=== PATIENT | female | born 1945 | race Caucasian/White ===

== ENCOUNTER 2016-05-06 12:10 | Inpatient (IN) ==
--- NOTE | 2016-05-06 13:24 | History and Physical Report ---
DATE OF ADMISSION: 05/06/2016 IDENTIFICATION: The patient is a 70-year-old female. She has complaints of progressive weakness, bilateral lower extremities. HISTORY: The patient has had multiple episodes of acute lower extremity weakness. She was in [place] and sustained several falls when her legs just \\"gave way.\\" She sustained a T12 fracture which was causing really quite debilitating pain. She was seen in the pain clinic and actually had been really fairly unresponsive to conservative measures and had really very intractable pain. A vertebroplasty was considered. The vertebroplasty was performed yesterday afternoon, and she was discharged doing really fairly well. Over the night she has had increasing pain and progressive weakness of her bilateral lower extremities. She re-presented to the pain clinic this morning, was evaluated by Dr. Alejo Suggs who obtained a CT scan which has shown significant narrowing at the upper aspect of the T12 vertebral body. The patient does complain of really quite severe dysesthetic pain in her bilateral lower extremities beginning perirectally and then wrapping into the anterior thighs. She has had significant weakness to the point where she has been unable to transfer. PAST MEDICAL HISTORY: Significant for hypertension, chronic pain, and diabetes. PAST SURGICAL HISTORY: She has had a recent cholecystectomy. ALLERGIES: Please see medical record. MEDICATIONS: 1. Ativan. 2. Amlodipine. 3. Benazepril. 4. Pantoprazole. 5. Plavix. 6. Tramadol. 7. Gemfibrozil. 8. Glipizide. 9. Percocet. 10. Atenolol. 11. Lasix. 12. Thyroid supplement. 13. Metformin. PHYSICAL EXAMINATION: GENERAL: She is awake and alert. She does seem to be generally in a fair amount of discomfort, especially if moved she has spasms and pain into her lower extremities. She is resting in a wheelchair and her family reports that she has been unable to stand or walk. She is unable to use her lower extremities to support for transfer. HEENT: Head is normocephalic, atraumatic. Eyes are reactive and show no conjunctivitis. ENT within normal limits. NECK: Supple without pain on range of motion. HEART: Regular. LUNGS: Clear. ABDOMEN: Benign. BACK: Her back shows no gross deformity. There is some ecchymosis. NEURO: Her neuro exam shows globally diminished strength. Hip flexors and extensors are roughly 1-2/5. Her quads are 2/5. Tibialis anterior is at least antigravity bilaterally. She has diffusely altered sensation. She does have sharp/dull which is somewhat diminished but she can distinguish. RECTAL: Rectal exam shows no real motor function and clearly decreased rectal tone. DIAGNOSTIC STUDIES: CT scan demonstrates a T12 fracture. There is a modest amount of what appears to be disc material that is posterior causing central canal stenosis. There is some radiopaque material into the canal on the left that would cause some left-sided narrowing but really is not causing significant central narrowing. IMPRESSION: Progressive weakness, bilateral lower extremities. I do think it is secondary to the stenosis at the upper aspect of the T12 vertebra. We will plan to proceed with a decompression of this stenosis. The procedure risks, complications and limitations have been discussed with the patient and her family, and they wish to proceed. GDD:david Job ID: [id number] Doc ID: [id number] Forrest Gomes MD
[2016-05-06] MEDS ORDERED: fentaNYL 250 MCG/5 ML VIAL IV ONE (13:25)
[2016-05-06] MEDS ORDERED: PHENYLEPHRINE 10 MG/ML VIAL IV ONE (13:25)
[2016-05-06] MEDS ORDERED: GLYCOPYRROLATE 0.2 MG/ML VIAL IV ONE (13:25)
[2016-05-06] MEDS ORDERED: MIDAZOLAM 5 MG/5 ML VIAL IV ONE (13:25)
[2016-05-06] MEDS ORDERED: PROPOFOL 200 MG/20 ML VIAL IV ONE (13:25)
[2016-05-06] MEDS ORDERED: LIDOCAINE HCL/PF 100 MG/5 ML SYRINGE IV ONE (13:25)
[2016-05-06] MEDS ORDERED: FAMOTIDINE/PF 20 MG/2 ML VIAL IV ONE ×2 (13:25→13:46)
[2016-05-06] MEDS ORDERED: ceFAZolin 1 GM VIAL ONE (13:27)
[2016-05-06 13:40] LABS: Basophils # (Auto) 0 K/mcL (0.0-0.3); Basophils % (Auto) 0.2 % (0.0-2.0); Eosinophils # (Auto) 0.1 K/mcL (0.0-0.7); Eosinophils % (Auto) 1.3 % (0.0-7.0); Granulocytes % (Auto) 75.5 % (38.0-78.0); Lymphocytes # (Auto) 1.7 K/mcL (1.5-4.8); Lymphocytes % (Auto) 17.1 % (15.5-49.0); Mean Cell Volume 80.8 fL (80.0-100.0); Mean Corpuscular HGB Conc 32.9 g/dL (31.0-36.0); Mean Corpuscular Hemoglobin 26.5 pg (26.0-34.0); Monocytes # (Auto) 0.6 K/mcL (0.1-0.9); Monocytes % (Auto) 5.9 % (1.0-9.0); Platelet Count 283 K/mcL (140-440); Red Cell Distribution Width 14.1 % (11.5-14.5)
[2016-05-06] MEDS ORDERED: methylPREDNISolone SOD SUCC 1,000 MG in 0.9 % SODIUM CHLORIDE 100 ML IV ONE (13:44)
[2016-05-06] MEDS ORDERED: GELATIN SPONGE,ABSORBABLE 1 EACH SPONGE TOPICAL ONE (14:16)
[2016-05-06] MEDS ORDERED: GELATIN SPONGE,ABSORBABLE 1 GM POWDER TOPICAL ONE (14:16)
[2016-05-06] MEDS ORDERED: THROMBIN (BOVINE) 5,000 UNIT VIAL TOPICAL ONE (14:16)
[2016-05-06] MEDS ORDERED: GUM MASTIC/STORAX/MSAL/ALCOHOL 1 DOSE DROPERETTE TOPICAL ONE (14:16)
[2016-05-06 14:34] LABS: Appearance,Urine CLEAR; Bacteria,Urine 0 /hpf (0); Bilirubin,Urine NEG (NEG); Color,Urine YELLOW; Glucose,Urine (UA) >=500 mg/dL (NEG); Leukocyte Esterase,Urine NEG /uL (NEG); Mucus,Urine FEW /hpf (0); Nitrate,Urine NEG (NEG); Protein,Urine NEG (NEG); Specific Gravity,Urine 1.011 (1.000-1.035); Urine Blood NEG mg/dL (<0.03); Urine Hyaline Cast 1 /lpf (0-2); Urine RBC 4 /hpf (0-1); Urine Squamous Epithelial Cell 0 /hpf (0-4); Urine WBC < 1 /hpf (0-4); Urobilinogen,Urine NEG (NEG)
[2016-05-06] MEDS ORDERED: METOPROLOL TARTRATE 5 MG/5 ML VIAL IV PRN (15:43)
[2016-05-06] MEDS ORDERED: NALOXONE HCL 0.4 MG/ML VIAL IV PRN (15:43)
[2016-05-06] MEDS ORDERED: ATROPINE SULFATE 0.4 MG/ML VIAL IV PRN (15:43)
[2016-05-06] MEDS ORDERED: HYDROmorphone 2 MG/ML SYRINGE IV PRN (15:43)
[2016-05-06] MEDS ORDERED: ePHEDrine 50 MG/ML AMPUL IV PRN (15:43)
[2016-05-06] MEDS ORDERED: MEPERIDINE 25 MG/ML SYRINGE IV PRN (15:43)
[2016-05-06] MEDS ORDERED: diphenhydrAMINE 50 MG/ML VIAL IV PRN (15:43)
[2016-05-06] MEDS ORDERED: IPRATROPIUM/ALBUTEROL 3 ML AMPUL.NEB NEB PRN (15:43)
[2016-05-06] MEDS ORDERED: BENZOCAINE/MENTHOL 1 LOZENGE PO PRN ×2 (15:43→17:25)
[2016-05-06] MEDS ORDERED: METHOCARBAMOL 1,000 MG/10 ML VIAL IV PRN (15:43)
[2016-05-06] MEDS ORDERED: ONDANSETRON 4 MG/2 ML VIAL IV PRN (15:43)
[2016-05-06] MEDS ORDERED: FLUMAZENIL 0.1 MG/ML ML IV PRN (15:43)
[2016-05-06] MEDS ORDERED: LACTATED RINGERS 1,000 ML IV SCH (15:45)
[2016-05-06] MEDS ORDERED: BUPIVACAINE 0.25% 50 ML VIAL IJ ONE (16:01)
--- NOTE | 2016-05-06 16:36 | Brief Operative Note ---
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 posterior bony fragment, small amount of hematoma Complications: none Surgeon: Forrest Gomes Cashier Host/Hostess: Alejo Suggs Estimated blood loss (cc): 100 Specimens Removed/Pathology: none sent Condition: stable Disposition: floor
[2016-05-06] MEDS: LABETALOL HCL 20 MG/4 ML SYRINGE IV PRN ×4 (16:40→17:11)
[2016-05-06] MEDS: fentaNYL 100 MCG/2 ML VIAL IV PRN ×3 (16:45→17:13)
[2016-05-06] MEDS ORDERED: ONDANSETRON ODT 4 MG TABLET SL PRN (17:25)
[2016-05-06] MEDS ORDERED: DEXTROSE 50% 50 ML VIAL IV PRN (18:28)
[2016-05-06] MEDS ORDERED: HYDROmorphone 2 MG/ML SYRINGE ONE ×2 (18:47→20:55)
[2016-05-06] MEDS: HYDROmorphone 2 MG/ML SYRINGE IV PRN ×2 (18:52→20:57)
[2016-05-06] MEDS: methylPREDNISolone SOD SUCC 125 MG/2 ML VIAL IV SCH (18:53)
[2016-05-06] MEDS: LACTATED RINGERS 1,000 ML IV SCH ×2 (19:05→23:02)
[2016-05-06] MEDS: ceFAZolin 1 GM VIAL IV SCH (20:34)
[2016-05-06] MEDS ORDERED: FAMOTIDINE/PF 20 MG/2 ML VIAL IV SCH (21:00)
[2016-05-06] MEDS ORDERED: ZOLPIDEM 5 MG TABLET PO PRN (21:00)
[2016-05-06] MEDS ORDERED: INSULIN LISPRO 1 UNIT/0.01 ML UNIT SQ SCH (21:00)
--- NOTE | 2016-05-06 21:15 | Internal Medicine Consult Note ---
Medical - CN: HPI - Data of Consult Consult date: 05/06/16 Requesting Physician: [f_Reg Attending Provider] Primary Care Provider: [fJoseReg Prim Care Provider] Family Provider: [fJoseReg Family Provider] - Consult Narrative Reason for consult: Medial management of chr medical conditions. History of present illness: Ms. Mcfarlane is a 70 year old female admitted to Surgery (neurosurgery for spine decompression and fusion). The patient history obtained from chart review. On my eval the patient was in discomfort from post op pain and did not give any medical history. The patient seems has been suffering from lower extremity weakness, s/p fall and vertebral fracture in T12 region. This was fixed by a vertebroplasty a couple of days ago. The patient after surgery had significant back pain again and was seen in the pain clinic, the patient underwent a CT which revewaled significant narrowing of the upper aspect of the t12 vertebae. The patient also had new neurological symptoms, weakness in yimi lower extremities and was therefore taken to the OR today. S/p surgery. Medicine was consulted for management of chr medical conditions The patient was given 1gm solumedrol and is on IV steroid for inflammation now. the pts PMH reviewed, PSH, Home medication list reviewed CC: [f_Reg Attending Provider] ROS unobtainable: due to mental status Medical - CN: PMH Medical history: From chart DM, HTN, HLD Chr Pain Surgical history: h/o cholcystectomy Recent vertebroplasty Pertinent family history: unable Social history: unable to review Medical - CN: Meds Home Medications Medication Instructions Recorded Confirmed Type Atenolol [Tenormin] 100 mg PO BID 05/06/16 05/06/16 History Benazepril HCl [Lotensin] 40 mg PO BID 05/06/16 05/06/16 History Canagliflozin [Invokana] 200 mg PO DAILY 05/06/16 05/06/16 History Clopidogrel Bisulfate [Plavix] 75 mg PO DAILY 05/06/16 05/06/16 History FLUoxetine HCL [Fluoxetine HCl] 40 mg PO DAILY 05/06/16 05/06/16 History Furosemide [Lasix] 60 mg PO DAILY 05/06/16 05/06/16 History Gemfibrozil [Lopid] 600 mg PO BIDAC 05/06/16 05/06/16 History LORazepam [Ativan] 1 mg PO TIDP PRN 05/06/16 05/06/16 History Levothyroxine [Synthroid] 150 mcg PO ACB 05/06/16 05/06/16 History Pantoprazole [Protonix] 40 mg PO QAMAC 05/06/16 05/06/16 History amLODIPine [Norvasc] 10 mg PO DAILY 05/06/16 05/06/16 History glipiZIDE [Glucotrol] 10 mg PO BID 05/06/16 05/06/16 History metFORMIN HCL [Glucophage] 1,000 mg PO BIDCC 05/06/16 05/06/16 History oxyCODONE HCL/ACETAMINOPHEN 1 tablet PO 5XD 05/06/16 05/06/16 History [Percocet 10-325 mg Tablet] tiZANidine [Zanaflex] 4 mg PO QIDP 05/06/16 05/06/16 History traMADol [Ultram] 100 mg PO QIDP 05/06/16 05/06/16 History traZODone HCL [Trazodone HCl] 50 mg PO HS 05/06/16 05/06/16 History Allergies Allergy/AdvReac Type Severity Reaction Status Date / Time codeine Allergy Severe Hives Verified 05/06/16 17:39 aspirin Allergy Unknown Unknown Verified 05/06/16 13:49 Medical - CN: Exam - Constitutional Vitals: Temp Pulse Resp BP Pulse Ox 98.4 F 83 20 173/79 98 05/06/16 19:15 05/06/16 19:15 05/06/16 19:15 05/06/16 19:15 05/06/16 19:15 General appearance: mild distress - Head Head exam: Present: atraumatic, normal inspection - Eye Eye exam: Absent: periorbital swelling, periorbital tenderness - ENT ENT exam: Present: normal external ear exam - Neck Neck exam: Present: normal inspection - Respiratory Respiratory exam: Absent: accessory muscle use, respiratory distress - Cardiovascular Cardiovascular exam: Present: normal rate and rhythm - Extremities Exam Additional comments: left ankle bruise on lateral aspect. - Additional findings Additional findings: Complete exam not peformed due to patient being in pain. will reassess in AM Medical - CN: Result - Labs CBC & Chem 7: 05/06/16 12:46 Labs: Short CBC 02/16/17 Range/Units 12:46 WBC 9.7 (4.5-11.0) K/mcL Hgb 11.1 L (12.0-15.0) g/dL Hct 33.9 L (36.0-48.0) % Plt Count 283 (140-440) K/mcL Urine 05/06/16 Range/Units 13:09 Urine Color Yellow Urine Appearance Clear Urine pH 5.0 (5.0-9.0) Ur Specific [place] 1.011 (1.000-1.035) Urine Protein Neg (NEG) mg/dL Urine Glucose (UA) >=500 A (NEG) mg/dL Medical - CN: A/P (1) Paraplegia Status: Acute (2) Diabetes mellitus Status: Acute (3) Hypertension Status: Acute (4) Hyperlipidemia Status: Acute (5) Anxiety Status: Acute - Narrative A/P Narrative: The patient has been admitted to the hospital with paraparesis /p spinal cord decompression. On high doses of IV steroids. DM- Glucose so far Ok, goal glucose < 180, hold Home oral medications for now, on Insulin sliding scale, monitor ACHS, and increase dose of insulin as needed. will resume home meds once oral intake is better. HTN bp high, pain seems to be confounding factor, Resume home bp meds, monitor for now HLD resume home meds DVT- Hold hep sq for now, given recent surgery, will wait atleast 48 hrs before dvt prophylaxis as per neurosurgery. Will consider scd in the interim. Diet - carb consistent
[2016-05-06] MEDS: METHOCARBAMOL 750 MG TABLET PO PRN (22:31)
[2016-05-06] MEDS: oxyCODONE HCL 5 MG TABLET PO PRN (22:31)
[2016-05-06] MEDS: LISINOPRIL 20 MG TABLET PO SCH (22:31)
[2016-05-07] MEDS ORDERED: HYDROmorphone 2 MG/ML SYRINGE ONE ×4 (00:02→06:21)
[2016-05-07] MEDS: LORazepam 1 MG TABLET PO PRN ×4 (00:11→23:05)
[2016-05-07] MEDS: methylPREDNISolone SOD SUCC 125 MG/2 ML VIAL IV SCH ×4 (00:16→19:48)
[2016-05-07] MEDS: oxyCODONE HCL 5 MG TABLET PO PRN ×4 (01:53→23:06)
[2016-05-07] MEDS: HYDROmorphone 2 MG/ML SYRINGE IV PRN ×6 (02:31→16:03)
[2016-05-07] MEDS: LACTATED RINGERS 1,000 ML IV SCH ×5 (04:54→23:27)
[2016-05-07 05:20] LABS: Basophils # (Auto) 0 K/mcL (0.0-0.3); Basophils % (Auto) 0.1 % (0.0-2.0); Eosinophils # (Auto) 0 K/mcL (0.0-0.7); Eosinophils % (Auto) 0 % (0.0-7.0); Granulocytes % (Auto) 91.3 % (38.0-78.0); Lymphocytes # (Auto) 0.7 K/mcL (1.5-4.8); Lymphocytes % (Auto) 6.2 % (15.5-49.0); Mean Cell Volume 81.1 fL (80.0-100.0); Mean Corpuscular HGB Conc 32.4 g/dL (31.0-36.0); Mean Corpuscular Hemoglobin 26.3 pg (26.0-34.0); Monocytes # (Auto) 0.3 K/mcL (0.1-0.9); Monocytes % (Auto) 2.4 % (1.0-9.0); Platelet Count 272 K/mcL (140-440); RBC 4.09 M/mcL (4.00-5.20); Red Cell Distribution Width 14.1 % (11.5-14.5)
[2016-05-07] MEDS: ceFAZolin 1 GM VIAL IV SCH (06:00)
[2016-05-07] MEDS: METHOCARBAMOL 750 MG TABLET PO PRN (06:00)
[2016-05-07 06:17] LABS: ALT/SGPT 14 U/l (0-40); Albumin 4.2 gm/dL (3.2-5.2); Albumin/Globulin Ratio 1.1 (1.0-2.3); Alkaline Phosphatase 166 U/L (39-117); Bilirubin,Direct < 0.2 mg/dL (0.0-0.3); Blood Urea Nitrogen 33 mg/dl (8-23); Gamma Glutamyl Transpeptidase 49 U/L (5-36); Magnesium 2.1 mg/dL (1.6-2.5); Phosphorous 4.5 mg/dL (2.7-4.5); Uric Acid 9.5 mg/dL (2.5-8.0)
[2016-05-07] MEDS ORDERED: glipiZIDE 5 MG TABLET PO SCH (07:30)
[2016-05-07] MEDS: INSULIN LISPRO 1 UNIT/0.01 ML UNIT SQ SCH ×4 (08:00→20:56)
[2016-05-07] MEDS: PANTOPRAZOLE 40 MG VIAL IV SCH (08:00)
[2016-05-07] MEDS ORDERED: METFORMIN HCL 1000 MG PO SCH (08:00)
[2016-05-07] MEDS: GEMFIBROZIL 600 MG TABLET PO SCH ×2 (08:01→17:20)
[2016-05-07] MEDS: LEVOTHYROXINE 150 MCG TABLET PO SCH (08:01)
--- NOTE | 2016-05-07 08:33 | XRay Report ---
HISTORY: Reason for Exam:fever FINDINGS: There are horizontally oriented thin linear opacities in both lung bases which may be scar or discoid atelectasis. They have remained stable since the time of the thoracic spine CT done on 05/06/16. There is no evidence of pneumonia, pleural effusion or adenopathy. The heart size is normal. IMPRESSION: Linear scar or discoid atelectasis in both lung bases and no evidence of pneumonia Interpreted and Authenticated by: Britton Bojorquez 05/07/16
[2016-05-07] MEDS ORDERED: tiZANidine 4 MG TABLET PO SCH (09:00)
[2016-05-07] MEDS ORDERED: CANAGLIFLOZIN 200 MG PO SCH (09:00)
[2016-05-07] MEDS ORDERED: fentaNYL 50 MCG PATCH TOPICAL SCH (09:00)
[2016-05-07] MEDS: FLUoxetine HCL 20 MG CAPSULE PO SCH (09:37)
[2016-05-07] MEDS: LISINOPRIL 20 MG TABLET PO SCH ×2 (09:37→23:08)
[2016-05-07] MEDS: GABAPENTIN 100 MG CAPSULE PO SCH ×3 (09:37→23:07)
[2016-05-07] MEDS: amLODIPine 10 MG TABLET PO SCH (09:37)
[2016-05-07] MEDS: FUROSEMIDE 20 MG TABLET PO SCH (09:37)
[2016-05-07] MEDS: ATENOLOL 50 MG TABLET PO SCH ×2 (09:37→23:07)
[2016-05-07] MEDS: tiZANidine 4 MG TABLET PO SCH ×2 (09:38→16:03)
--- NOTE | 2016-05-07 09:45 | XRay Report ---
HISTORY: Reason for Exam:swelling, FINDINGS: There is moderate soft tissue swelling along the lateral side of the ankle and milder swelling along the medial side. There is no fracture or dislocation. Small spurs are present along the inferior margins of both medial and lateral malleolus. The ankle joint space is normal in width and alignment. IMPRESSION: Mild arthritis and soft tissue swelling Interpreted and Authenticated by: Britton Bojorquez 05/07/16
[2016-05-07] MEDS ORDERED: cloNIDine HCL 0.1 MG TABLET PO PRN (10:06)
--- NOTE | 2016-05-07 10:12 | Internal Med Progress Note ---
Medical - PN: Subj Patient information: Note initiated : 05/07/16 at 10:09 am Service Date, if different from initiated Date: [] Patient: Paula Mcfarlane 70 y/o F admitted on 05/06/16 for lumbar decompression. Chief Complaint: [] Interval history: Patient seen examined, still in pain did not talk much about other complaints Overnight had spiked fevers, BC ordered CXR shows at atelectasis - this is likely the source of fever, needs incentive spirometery which is ordered. patient glucose high, she is on moderate dose of sliding scale isulin, and lantus 10 units have been added to her regime. Pain control is as per Neurosurgery, patient to get IV tylenol and fentanyl patch, with resumption of her home meds. addition of neurontin 100mg tid as per nursing staff. BP high, not sure if related to stress, she was started back on her home medications today. Will monitor BP, use clonidine prn basis to help with bp management. This is multifactorial at this time. Pertinent ROS: unable to obtain. - Constitutional Vitals: Vital Signs Temp Pulse Resp BP Pulse Ox 99.9 F H 89 24 210/102 95 05/07/16 08:00 05/07/16 04:00 05/07/16 08:00 05/07/16 08:00 05/07/16 08:00 Period Temp Pulse Resp BP Sys/[place] Pulse Ox Last 24 Hr 97.6 F-101.3 F 60-90 15-26 95-210/52-102 90-100 Intake and Output 05/06/16 05/07/16 05/07/16 21:59 05:59 13:59 Intake Total 1200 / 1200 795 / 795 Output Total 1875 / 1875 1330 / 1330 Balance -675 / -675 -535 / -535 Weight 145 lb Intake & Output: Intake & Output 05/06/16 05/07/16 05/07/16 21:59 05:59 13:59 Intake Total 1200 / 1200 795 / 795 Output Total 1875 / 1875 1330 / 1330 Balance -675 / -675 -535 / -535 Weight 145 lb Intake: IV 1200 / 1200 395 / 395 Lactated Ringers 1,000 ml 395 / 395 @ 100 mls/hr IV .Q10H [facility] Rx#:[id number] Oral 400 / 400 Output: Drainage Posterior Back RAVEN Drain Urine Catheter Amount 1825 / 1825 1300 / 1300 Estimated Blood Loss 50 / 50 Other: Percent of Meal Consumed Refused Exam: Constitutional; Afebrile, cooperative, mild to moderate distress Eyes- No icterus, No periorbital swelling Ears- Ext ear normal, hearing normal to conversation. Neck- Midline trachea, supple Respiratory system: Air Entry equal on both sides, No crackles or wheezing, no rhonchi. CVS- Rate rhythm regular, S1,S2 heard, no gallop, no rub. Abdomen- Soft nontender abdomen, no organomegaly, no tenderness, no guarding or rigidity, [employer] SPECIALIST- AOO, able to move lower extremities, 1-2 / 5 on both limbs Medical - PN: Obj Da - Labs CBC & Chem 7: 05/07/16 04:15 05/07/16 04:15 Labs: Abnormal Lab Results 05/07/16 05/07/16 05/06/16 04:15 04:15 13:09 WBC 11.8 H Hgb 10.8 L Hct 33.2 L POC Hct Gran % 91.3 H Lymph % (Auto) 6.2 L Gran # 10.7 H Lymph # 0.7 L Chloride 93 L Anion Gap 21.0 H POC BUN BUN 33 H Glucose 293 H POC Glucose Uric Acid 9.5 H GGT 49 H AST 39 H Alkaline Phosphatase 166 H Triglycerides 230 H Urine Glucose (UA) >=500 A Urine RBC 4 H 05/06/16 05/06/16 12:46 12:46 WBC Hgb 11.1 L Hct 33.9 L POC Hct 35.0 L Gran % Lymph % (Auto) Gran # Lymph # Chloride Anion Gap POC BUN 35 H BUN Glucose POC Glucose 201 H Uric Acid GGT AST Alkaline Phosphatase Triglycerides Urine Glucose (UA) Urine RBC Meds: Medications Amlodipine Besylate (Norvasc) 10 mg PO DAILY [facility] Last Admin: 05/07/16 09:37 Dose: 10 mg Atenolol (Tenormin) 100 mg PO BID [facility] Last Admin: 05/07/16 09:37 Dose: 100 mg Clonidine HCl (Catapres) 0.1 mg PO TID PRN PRN Reason: HIGH BP Dextrose (Dextrose 50%) 0 ml IV UD PRN PRN Reason: Hypoglycemia Diagnostic Test (Pha) (Accu-Chek) 1 each FS ACHS [facility] Last Admin: 05/07/16 07:41 Dose: 1 each Fentanyl (Duragesic) 50 mcg TOPICAL Q72H [facility] Last Admin: 05/07/16 09:36 Dose: 50 mcg Fluoxetine HCl (Prozac) 40 mg PO DAILY [facility] Last Admin: 05/07/16 09:37 Dose: 40 mg Furosemide (Lasix) 60 mg PO DAILY [facility] Last Admin: 05/07/16 09:37 Dose: 60 mg Gabapentin (Neurontin) 100 mg PO TID [facility] Last Admin: 05/07/16 09:37 Dose: 100 mg Gemfibrozil (Lopid) 600 mg PO BIDAC [facility] Last Admin: 05/07/16 08:01 Dose: 600 mg Hydromorphone HCl (Dilaudid) 0 mg IV Q2HP PRN PRN Reason: Pain Last Admin: 05/07/16 09:47 Dose: 2 mg Lactated Ringer's (Lactated Ringers) 1,000 mls @ 100 mls/hr IV .Q10H [facility] Last Admin: 05/07/16 04:54 Dose: Not Given Acetaminophen (Ofirmev) 1,000 mg in 100 mls @ 200 mls/hr IV Q6HP PRN PRN Reason: PAIN/FEVER > 101 Insulin Glargine (Lantus) 10 unit SQ DAILY [facility] Insulin Human Lispro (Humalog) 0 unit SQ ACHS [facility] PRN Reason: Protocol Last Admin: 05/07/16 08:00 Dose: 10 unit Levothyroxine Sodium (Synthroid) 150 mcg PO ACB [facility] Last Admin: 05/07/16 08:01 Dose: 150 mcg Lisinopril (Zestril) 40 mg PO BID [facility] Last Admin: 05/07/16 09:37 Dose: 40 mg Lorazepam (Ativan) 1 mg PO TIDP PRN PRN Reason: Anxiety Last Admin: 05/07/16 08:01 Dose: 1 mg Methocarbamol (Robaxin) 750 mg PO Q6HP PRN PRN Reason: Muscle Spasm Last Admin: 05/07/16 06:00 Dose: 750 mg Methylprednisolone Sodium Succinate (Solu-Medrol) 125 mg IV Q6 [facility] Last Admin: 05/07/16 06:00 Dose: 125 mg Ondansetron HCl (Zofran Odt) 4 mg SL Q4HP PRN PRN Reason: Nausea And Vomiting Oxycodone HCl (Roxicodone) 0 mg PO Q4HP PRN PRN Reason: Pain Last Admin: 05/07/16 05:59 Dose: 10 mg Pantoprazole Sodium (Protonix) 40 mg IV QAMAC [facility] Last Admin: 05/07/16 08:00 Dose: 40 mg Throat Lozenges (Cepacol) 1 lozenge PO PRN PRN PRN Reason: Sore Throat Tizanidine HCl (Zanaflex) 4 mg PO Q6H [facility] Last Admin: 05/07/16 09:38 Dose: 4 mg Zolpidem Tartrate (Ambien) 5 mg PO HSP PRN PRN Reason: Insomnia Medical - PN: A/P - Time Spent With Patient Total time spent is greater than 50% in coordination of care (as documented) at patient's floor/unit and/or counseling patient: (1) Paraplegia Status: Acute Current Visit: Yes (2) Diabetes mellitus Status: Acute Current Visit: Yes (3) Hypertension Status: Acute Current Visit: Yes (4) Hyperlipidemia Status: Acute Current Visit: Yes (5) Anxiety Status: Acute Current Visit: Yes - Narrative A/P Narrative: DM- Lantus and sliding scale, titrate to keep glucose < 180 as far as possible HTN - reactive vs HTN, resumed home meds, prn clonidone for now. Continue rest of home medicatins pain management as per neurosurgery. Anlke swelling bruising noted, X ray done this AM is negative.
[2016-05-07] MEDS ORDERED: INSULIN GLARGINE, HUMAN 1 UNIT/0.01 ML SQ SCH (10:15)
[2016-05-07] MEDS: ACETAMINOPHEN 1,000 MG/100 ML BOTTLE IV PRN ×2 (10:32→17:29)
[2016-05-07] MEDS ORDERED: diphenhydrAMINE 50 MG/ML VIAL IV PRN (14:55)
--- NOTE | 2016-05-07 16:13 | Orthopedic Progress Note ---
Subjective Patient information: Note initiated : 05/07/16 at 4:09 pm Service Date, if different from initiated Date: [] Patient: Paula Mcfarlane 70 y/o F admitted on 05/06/16 for Lumbar Decompression. Chief Complaint: patient seen earlier this am and had severe back pain and difficulty with mentation. MRI ordered of brain and t spine. difficulty with patient being able to lay still but mentation has improved with pain control. continues with pain challenges but seems to do ok when coaxed to relax. Neuro consistent with preop. Principal diagnosis: cauda equina syndrome Interval history: unchanged since this am except responds more clearly. Objective Vital signs: Vital Signs Temp Pulse Resp BP BP Pulse Ox 05/07/16 12:00 98.2 F 86 18 147/89 93 05/07/16 08:00 99.9 F H 24 210/102 95 05/07/16 04:00 99.1 F 89 20 177/80 90 05/07/16 02:10 99.1 F 90 26 H 97 05/07/16 00:15 99.7 F H 05/06/16 23:04 101.3 F H 88 24 168/88 99 05/06/16 19:15 98.4 F 83 20 173/79 98 05/06/16 18:45 85 20 173/91 97 05/06/16 18:15 88 18 172/76 99 05/06/16 18:00 99.3 F 84 18 166/81 05/06/16 17:45 81 16 169/82 100 05/06/16 17:30 98.9 F 80 16 171/81 100 05/06/16 17:25 98 F 90 20 173/91 97 05/06/16 17:14 97.6 F 78 17 163/69 100 05/06/16 17:00 76 16 170/67 100 05/06/16 16:45 77 15 176/71 100 05/06/16 16:35 76 19 176/71 99 05/06/16 16:29 60 16 143/61 100 05/06/16 16:24 60 16 106/52 100 05/06/16 16:21 98.6 F 72 16 100/52 98 05/06/16 16:15 60 16 135/81 98 Intake and Output 05/07/16 05/07/16 05/07/16 05:59 13:59 21:59 Intake Total 795 / 795 1520 / 1520 Output Total 1330 / 1330 850 / 850 Balance -535 / -535 670 / 670 Intake: IV 395 / 395 1000 / 1000 Lactated Ringers 1,000 ml 395 / 395 1000 / 1000 @ 100 mls/hr IV .Q10H [facility] Rx#:[id number] Oral 400 / 400 520 / 520 Output: Drainage 30 / 30 Posterior Back RAVEN Drain 30 / 30 Urine Catheter Amount 1300 / 1300 850 / 850 Other: Meal Lunch Percent of Meal Consumed Refused Feeding Ability Independent Weight 145 lb Patient Weight 05/08/16 05:59 Weight 145 lb Intake & Output: Intake & Output 05/07/16 05/07/16 05/07/16 05:59 13:59 21:59 Intake Total 795 / 795 1520 / 1520 Output Total 1330 / 1330 850 / 850 Balance -535 / -535 670 / 670 Weight 145 lb Intake: IV 395 / 395 1000 / 1000 Lactated Ringers 1,000 ml 395 / 395 1000 / 1000 @ 100 mls/hr IV .Q10H [facility] Rx#:[id number] Oral 400 / 400 520 / 520 Output: Drainage 30 / 30 Posterior Back RAVEN Drain 30 / 30 Urine Catheter Amount 1300 / 1300 850 / 850 Other: Meal Lunch Percent of Meal Consumed Refused Feeding Ability Independent Additional Comments: neuro exam really unchanged from preop Extremities exam IM: Yes Foot pink and warm - Labs CBC & BMP: 05/07/16 04:15 05/07/16 04:15 Labs: Orthopedic Labs 05/06/16 12:46 POC PT 13.7 POC INR 1.2 05/07/16 05/06/16 04:15 12:46 Hgb 10.8 L 11.1 L Hct 33.2 L 33.9 L Assessment and Plan (1) Paraplegia will taper steroid tomorrow. continue pain management. will need inpatient rehab Status: Acute
[2016-05-08] MEDS: methylPREDNISolone SOD SUCC 125 MG/2 ML VIAL IV SCH ×2 (02:41→07:36)
[2016-05-08] MEDS: tiZANidine 4 MG TABLET PO SCH ×5 (02:41→20:29)
[2016-05-08] MEDS ORDERED: MAGNESIUM HYDROXIDE 30 ML ORAL.SUSP PO PRN (03:13)
[2016-05-08] MEDS ORDERED: FLEETS ADULT ENEMA PR PRN (03:13)
[2016-05-08] MEDS ORDERED: BISACODYL 10 MG SUPP.RECT PR PRN (03:13)
[2016-05-08] MEDS: LEVOTHYROXINE 150 MCG TABLET PO SCH (07:30)
[2016-05-08] MEDS: GEMFIBROZIL 600 MG TABLET PO SCH ×2 (07:30→17:52)
[2016-05-08] MEDS: PANTOPRAZOLE 40 MG VIAL IV SCH (07:30)
[2016-05-08] MEDS: HYDROmorphone 2 MG/ML SYRINGE IV PRN (07:44)
[2016-05-08] MEDS ORDERED: INSULIN GLARGINE, HUMAN 1 UNIT/0.01 ML SQ SCH (09:00)
--- NOTE | 2016-05-08 09:04 | Orthopedic Progress Note ---
Subjective Patient information: Note initiated : 05/08/16 at 9:02 am Service Date, if different from initiated Date: [] Patient: Paula Mcfarlane 70 y/o F admitted on 05/06/16 for Lumbar Decompression. Chief Complaint: [] Principal diagnosis: cauda equina syndrome Interval history: No acute changes, remains modestly confused Objective Vital signs: Vital Signs Temp Pulse Pulse Resp BP BP Pulse Ox 05/08/16 08:07 93 05/08/16 04:00 99.5 F 90 20 135/86 90 05/07/16 23:27 97 H 24 92 05/07/16 19:35 98.6 F 88 24 142/90 95 05/07/16 19:00 95 05/07/16 18:34 98.9 F 70 24 129/81 95 05/07/16 18:10 72 24 93 05/07/16 18:02 73 21 85 L 05/07/16 17:31 98.2 F 24 156/99 91 05/07/16 12:00 98.2 F 86 18 147/89 93 Intake and Output 05/07/16 05/08/16 05/08/16 21:59 05:59 13:59 Intake Total 1862 / 1862 350 / 350 Output Total 1700 / 1700 1590 / 1590 Balance 162 / 162 -1240 / -1240 Intake: IV 922 / 922 Lactated Ringers 1,000 ml 822 / 822 @ 100 mls/hr IV .Q10H [facility] Rx#:[id number] Oral 940 / 940 350 / 350 Output: Drainage 15 / 15 Posterior Back RAVEN Drain 15 / 15 Urine Catheter Amount 1700 / 1700 1575 / 1575 Other: Weight 140 lb 8 oz Intake & Output: Intake & Output 05/07/16 05/08/16 05/08/16 21:59 05:59 13:59 Intake Total 1862 / 1862 350 / 350 Output Total 1700 / 1700 1590 / 1590 Balance 162 / 162 -1240 / -1240 Weight 140 lb 8 oz Intake: IV 922 / 922 Lactated Ringers 1,000 ml 822 / 822 @ 100 mls/hr IV .Q10H [facility] Rx#:[id number] Oral 940 / 940 350 / 350 Output: Drainage 15 / 15 Posterior Back RAVEN Drain 15 / 15 Urine Catheter Amount 1700 / 1700 1575 / 1575 Dressing: Yes clean, Yes dry Additional Comments: neuro +/- maybe some increased spontaneous movement. remains very weak. - Labs CBC & BMP: 05/08/16 04:30 05/07/16 04:15 Labs: Orthopedic Labs 05/06/16 12:46 POC PT 13.7 POC INR 1.2 05/08/16 05/08/16 05/07/16 08:04 04:30 04:15 Hgb Pending 10.9 L 10.8 L Hct Pending 33.3 L 33.2 L 05/06/16 12:46 Hgb 11.1 L Hct 33.9 L Assessment and Plan (1) Paraplegia will taper steroid tomorrow. continue pain management. will need inpatient rehab will order tlso and begin to mobilize Status: Acute
[2016-05-08 09:06] LABS: Mean Cell Volume 80.9 fL (80.0-100.0); Mean Corpuscular HGB Conc 32.8 g/dL (31.0-36.0); Mean Corpuscular Hemoglobin 26.6 pg (26.0-34.0); Platelet Count 330 K/mcL (140-440); RBC 4.25 M/mcL (4.00-5.20); Red Cell Distribution Width 14.4 % (11.5-14.5)
[2016-05-08 09:15] LABS: Amylase 140 U/L (28-100); Lipase 251 U/L (7-60)
[2016-05-08 09:21] LABS: ALT/SGPT 20 U/l (0-40); Albumin 3.6 gm/dL (3.2-5.2); Albumin/Globulin Ratio 0.9 (1.0-2.3); Alkaline Phosphatase 151 U/L (39-117); Bilirubin,Direct < 0.2 mg/dL (0.0-0.3); Blood Urea Nitrogen 37 mg/dl (8-23); Gamma Glutamyl Transpeptidase 53 U/L (5-36); Magnesium 1.9 mg/dL (1.6-2.5); Phosphorous 3.7 mg/dL (2.7-4.5); Uric Acid 10.9 mg/dL (2.5-8.0)
[2016-05-08 09:28] LABS: Band Neutrophils % 2 % (0-10); Lymphocytes % 9 % (15-49); Monocytes % (Manual) 1 % (1-9); Platelet Estimate NORMAL (NORMAL); RBC Morphology NORMAL (NORMAL); Segmented Neutrophils % 88 % (38-78)
[2016-05-08] MEDS ORDERED: IOPAMIDOL 100 ML BOTTLE IJ ONE (10:11)
[2016-05-08] MEDS ORDERED: VANCOMYCIN PER PHARMACY IV SCH (10:39)
[2016-05-08] MEDS: FUROSEMIDE 20 MG TABLET PO SCH (11:29)
[2016-05-08] MEDS: GABAPENTIN 100 MG CAPSULE PO SCH ×3 (11:29→20:29)
[2016-05-08] MEDS: ATENOLOL 50 MG TABLET PO SCH ×2 (11:30→20:30)
[2016-05-08] MEDS: amLODIPine 10 MG TABLET PO SCH (11:30)
[2016-05-08] MEDS: LISINOPRIL 20 MG TABLET PO SCH ×2 (11:30→20:30)
[2016-05-08] MEDS: FLUoxetine HCL 20 MG CAPSULE PO SCH (11:30)
[2016-05-08] MEDS: DOCUSATE SODIUM 100 MG CAPSULE PO SCH ×2 (11:30→20:29)
[2016-05-08] MEDS: oxyCODONE HCL 5 MG TABLET PO PRN (11:31)
[2016-05-08] MEDS: PIPERACILLIN SODIUM/TAZOBACTAM 3.375 GM in DEXTROSE 5% IN WATER 50 ML IV SCH ×2 (11:32→18:54)
[2016-05-08] MEDS: LACTATED RINGERS 1,000 ML IV SCH (11:36)
[2016-05-08] MEDS: INSULIN LISPRO 1 UNIT/0.01 ML UNIT SQ SCH ×4 (11:52→20:46)
--- NOTE | 2016-05-08 11:58 | Internal Med Progress Note ---
Medical - PN: Subj Patient information: Note initiated : 05/08/16 at 11:49 am Service Date, if different from initiated Date: [] Patient: Paula Mcfarlane 70 y/o F admitted on 05/06/16 for Lumbar Decompression. Chief Complaint: [] Interval history: The patient seen examined, overnight events not ed Pt was in significant discomfort overnight, and delerious, removed her stahl. Also was incohenernt but the nrusing staff did note pain in the abdomen. On my eval this AM she did not talk much, but later in the day in presence of family her mental condition was much better. She noted pain in the back was her major concern. did not endorse any abdominal pain. Her abdominal discomfort was better after the insertion of the stahl catheter. The pt underwent a CT abdomen and pelvis and a CT head this AM- official transcripts pending, but I discussed the findings with the radiologist. Possible bibasilar pna/ enlarged urinary bladder. CT head neg for acute issues. Her amylase and lipase was mildly elevated, lactate high, and elevated anion gap. ABG shows resp alkalosis and metabolic acidosis. Case discussed with family and patient. Pertinent ROS: denies headache, but was confused intermittently no chest pain or shortness of breath abdominal pain was present but not there any more no diarrhea urinary retention noted after stahl removed, reinstered. - Constitutional Vitals: Vital Signs Temp Pulse Resp BP Pulse Ox 98.3 F 90 24 143/91 93 05/08/16 08:00 05/08/16 04:00 05/08/16 08:00 05/08/16 08:00 05/08/16 08:07 Period Temp Pulse Resp BP Sys/Roldan Pulse Ox Last 24 Hr 98.2 F-99.5 F 70-97 18-24 129-156/81-99 85-95 Intake and Output 05/07/16 05/08/16 05/08/16 21:59 05:59 13:59 Intake Total 1861 / 1861 350 / 350 1400 / 1400 Output Total 1700 / 1700 1590 / 1590 500 / 500 Balance 162 / 162 -1240 / -1240 900 / 900 Weight 140 lb 8 oz Intake & Output: Intake & Output 05/07/16 05/08/16 05/08/16 21:59 05:59 13:59 Intake Total 1862 / 1862 350 / 350 1400 / 1400 Output Total 1700 / 1700 1590 / 1590 500 / 500 Balance 162 / 162 -1240 / -1240 900 / 900 Weight 140 lb 8 oz Intake: IV 922 / 922 1000 / 1000 Lactated Ringers 1,000 ml 822 / 822 1000 / 1000 @ 100 mls/hr IV .Q10H [facility] Rx#:[id number] Oral 940 / 940 350 / 350 400 / 400 Output: Drainage Posterior Back RAVEN Drain Urine Catheter Amount 1700 / 1700 1575 / 1575 500 / 500 Other: Meal Breakfast Percent of Meal Consumed Refused Exam: Constitutional; Afebrile, cooperative, alert, not in distress. Eyes- No icterus, Pupils equal, reactive, No periorbital swelling Ears- Ext ear normal, hearing normal to conversation. Neck- Midline trachea, supple Respiratory system: Air Entry equal on both sides, No crackles or wheezing, no rhonchi. CVS- Rate rhythm regular, S1,S2 heard, no gallop, no rub. 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 Medical - PN: Obj Da - Labs CBC & Chem 7: 05/08/16 08:04 05/08/16 08:04 Labs: Abnormal Lab Results 05/08/16 05/08/16 05/08/16 10:12 10:12 08:04 WBC Hgb Hct POC Hct Gran % Lymph % (Auto) Gran # Lymph # Seg Neutrophils % Lymphocytes % VBG Lactic Acid 2.4 H Chloride Carbon Dioxide Anion Gap POC BUN BUN Glucose POC Glucose Uric Acid GGT AST Alkaline Phosphatase Lactate Dehydrogenase Globulin Albumin/Globulin Ratio Triglycerides Amylase 140 H Lipase 251 H Beta-Hydroxybutyrate 3.28 H Urine Glucose (UA) Urine RBC 05/08/16 05/08/16 05/08/16 08:04 08:04 04:30 WBC 15.7 H Hgb 11.3 L 10.9 L Hct 34.4 L 33.3 L POC Hct Gran % Lymph % (Auto) Gran # Lymph # Seg Neutrophils % 88 H Lymphocytes % 9 L VBG Lactic Acid Chloride Carbon Dioxide 19 L Anion Gap 25.0 H POC BUN BUN 37 H Glucose 253 H POC Glucose Uric Acid 10.9 H GGT 53 H AST 86 H Alkaline Phosphatase 151 H Lactate Dehydrogenase 337 H Globulin 3.9 H Albumin/Globulin Ratio 0.9 L Triglycerides 248 H Amylase Lipase Beta-Hydroxybutyrate Urine Glucose (UA) Urine RBC 05/07/16 05/07/16 05/06/16 04:15 04:15 13:09 WBC 11.8 H Hgb 10.8 L Hct 33.2 L POC Hct Gran % 91.3 H Lymph % (Auto) 6.2 L Gran # 10.7 H Lymph # 0.7 L Seg Neutrophils % Lymphocytes % VBG Lactic Acid Chloride 93 L Carbon Dioxide Anion Gap 21.0 H POC BUN BUN 33 H Glucose 293 H POC Glucose Uric Acid 9.5 H GGT 49 H AST 39 H Alkaline Phosphatase 166 H Lactate Dehydrogenase Globulin Albumin/Globulin Ratio Triglycerides 230 H Amylase Lipase Beta-Hydroxybutyrate Urine Glucose (UA) >=500 A Urine RBC 4 H 05/06/16 05/06/16 12:46 12:46 WBC Hgb 11.1 L Hct 33.9 L POC Hct 35.0 L Gran % Lymph % (Auto) Gran # Lymph # Seg Neutrophils % Lymphocytes % VBG Lactic Acid Chloride Carbon Dioxide Anion Gap POC BUN 35 H BUN Glucose POC Glucose 201 H Uric Acid GGT AST Alkaline Phosphatase Lactate Dehydrogenase Globulin Albumin/Globulin Ratio Triglycerides Amylase Lipase Beta-Hydroxybutyrate Urine Glucose (UA) Urine RBC Meds: Medications Amlodipine Besylate (Norvasc) 10 mg PO DAILY [facility] Last Admin: 05/08/16 11:30 Dose: 10 mg Atenolol (Tenormin) 100 mg PO BID [facility] Last Admin: 05/08/16 11:30 Dose: 100 mg Bisacodyl (Dulcolax) 10 mg NV Q2-3DAYS PRN PRN Reason: Constipation Clonidine HCl (Catapres) 0.1 mg PO TIDP PRN PRN Reason: HIGH BP Dextrose (Dextrose 50%) 0 ml IV UD PRN PRN Reason: Hypoglycemia Diagnostic Test (Pha) (Accu-Chek) 1 each FS ACHS [facility] Last Admin: 05/08/16 11:36 Dose: 1 each Diphenhydramine HCl (Benadryl) 12.5 mg IV Q6HP PRN PRN Reason: Allergic Symptoms Last Admin: 05/07/16 15:14 Dose: 12.5 mg Docusate Sodium (Colace) 100 mg PO BID [facility] Last Admin: 05/08/16 11:30 Dose: 100 mg Fentanyl (Duragesic) 50 mcg TOPICAL Q72H [facility] Last Admin: 05/07/16 09:36 Dose: 50 mcg Fluoxetine HCl (Prozac) 40 mg PO DAILY [facility] Last Admin: 05/08/16 11:30 Dose: 40 mg Furosemide (Lasix) 60 mg PO DAILY [facility] Last Admin: 05/08/16 11:29 Dose: 60 mg Gabapentin (Neurontin) 100 mg PO TID [facility] Last Admin: 05/08/16 11:29 Dose: 100 mg Gemfibrozil (Lopid) 600 mg PO BIDAC [facility] Last Admin: 05/08/16 07:30 Dose: Not Given Hydromorphone HCl (Dilaudid) 0 mg IV Q2HP PRN PRN Reason: Pain Last Admin: 05/08/16 07:44 Dose: 1 mg Lactated Ringer's (Lactated Ringers) 1,000 mls @ 100 mls/hr IV .Q10H [facility] Last Admin: 05/08/16 11:36 Dose: 100 mls/hr Acetaminophen (Ofirmev) 1,000 mg in 100 mls @ 200 mls/hr IV Q6HP PRN PRN Reason: PAIN/FEVER > 101 Last Infusion: 05/07/16 18:05 Dose: Infused Piperacillin Sod/Tazobactam (Sod 3.375 gm/ Dextrose) 50 mls @ 100 mls/hr IV Q6H [facility] Last Admin: 05/08/16 11:32 Dose: 100 mls/hr Vancomycin HCl 1,000 mg/ (Sodium Chloride) 250 mls @ 250 mls/hr IV Q24H [facility] Sodium Chloride (Sodium Chloride 0.9%) 1,000 mls @ 125 mls/hr IV .Q8H [facility] Insulin Glargine (Lantus) 16 unit SQ DAILY [facility] Insulin Human Lispro (Humalog) 0 unit SQ ACHS [facility] PRN Reason: Protocol Levothyroxine Sodium (Synthroid) 150 mcg PO ACB [facility] Last Admin: 05/08/16 07:30 Dose: Not Given Lisinopril (Zestril) 40 mg PO BID [facility] Last Admin: 05/08/16 11:30 Dose: 40 mg Lorazepam (Ativan) 1 mg PO TIDP PRN PRN Reason: Anxiety Last Admin: 05/07/16 23:05 Dose: 1 mg Magnesium Hydroxide (Milk Of Magnesia) 30 ml PO DAILYP PRN PRN Reason: Constipation Methocarbamol (Robaxin) 750 mg PO Q6HP PRN PRN Reason: Muscle Spasm Last Admin: 05/07/16 06:00 Dose: 750 mg Ondansetron HCl (Zofran Odt) 4 mg SL Q4HP PRN PRN Reason: Nausea And Vomiting Oxycodone HCl (Roxicodone) 0 mg PO Q4HP PRN PRN Reason: Pain Last Admin: 05/08/16 11:31 Dose: 10 mg Pantoprazole Sodium (Protonix) 40 mg IV QAMAC [facility] Last Admin: 05/08/16 07:30 Dose: Not Given Sodium Biphosphate/Sodium Phosphate (Fleets Adult) 1 dose NV Q3-4DAYS PRN PRN Reason: Constipation Throat Lozenges (Cepacol) 1 lozenge PO PRN PRN PRN Reason: Sore Throat Tizanidine HCl (Zanaflex) 4 mg PO Q6H [facility] Last Admin: 05/08/16 11:29 Dose: 4 mg Vancomycin HCl (Vancomycin Per Pharmacy) 1 order IV UD [facility] Zolpidem Tartrate (Ambien) 5 mg PO HSP PRN PRN Reason: Insomnia Medical - PN: A/P - Time Spent With Patient Total time spent is greater than 50% in coordination of care (as documented) at patient's floor/unit and/or counseling patient: (1) Paraplegia Status: Acute Current Visit: Yes (2) Diabetes mellitus Status: Acute Current Visit: Yes (3) Hypertension Status: Acute Current Visit: Yes (4) Hyperlipidemia Status: Acute Current Visit: Yes (5) Anxiety Status: Acute Current Visit: Yes (6) Elevated lipase Status: Acute Current Visit: Yes (7) Urinary retention Status: Acute Current Visit: Yes (8) Pneumonia Status: Acute Current Visit: Yes - Narrative A/P Narrative: Paraplegia seems stable, plan by neurosurgery to wean off steroids in AM will need neuro rehab, on discharge. Pneumonia- LIkely aspirational, sepsis present given elevated wbc and lacate, treat with iv vanco and zosyn and monitor, IV fluids Abdominal pain/ discomfort was predominantly lower abdomen- CT negative for pancreatitis, but amylase lipase was elevated will monitor for now, Stahl in place for urinary incontienece DM - Glucose uncontrolled, incresaed dose of lantus and sliding scale insulin, monitor closely. HTN bp stable, continue home meds
[2016-05-08] MEDS ORDERED: VANCOMYCIN 1,000 MG in 0.9 % SODIUM CHLORIDE 250 ML IV SCH (12:00)
[2016-05-08] MEDS: 0.9 % SODIUM CHLORIDE 1,000 ML IV SCH ×2 (12:24→20:42)
--- NOTE | 2016-05-08 13:35 | Cat Scan Report ---
History: Altered mental status with increasing confusion Findings: The brain was imaged without contrast at 2.5 mm intervals. There is a moderate amount of periventricular white matter disease with patchy areas of decreased attenuation. There is involvement in the frontal and parietal lobes bilaterally as well as the sifuentes radiata. Similar findings were present on a prior brain MRI done on 12/11/12. No infarct is detected. There is no mass or hemorrhage. There is focal calcification in the subarachnoid space lateral to the right sylvian fissure. There is also dural calcification in the falx. The subarachnoid calcification may have been present on the prior MRI. However, MRI is insensitive in detecting calcification. There is no subarachnoid or subdural hemorrhage. The ventricles are normal in size. Impression: Moderate generalized white matter ischemia or degeneration. No acute abnormality has developed Interpreted and Authenticated by: Britton Bojorquez 05/08/16
--- NOTE | 2016-05-08 13:38 | Cat Scan Report ---
CLINICAL INFORMATION: Reason for Exam:abdominal pain COMPARISON: None. TECHNIQUE: Following injection of intravenous contrast the patient was scanned during the portal venous phase from the diaphragm through the symphysis pubis. Sagittal and coronal reformats were created.. FINDINGS: There are mild to moderate alveolar infiltrates in both lower lobes with milder involvement in the right middle lobe and lingula. No pleural effusion is present. Liver is normal in size. However, there is lobulation of the liver capsule. This suggests the presence of cirrhosis. No mass is present in the liver. The gallbladder is been removed. Intrahepatic ducts are nondilated. Proximal common hepatic duct is dilated. The common bile duct tapers to normal caliber as it passes through the head of the pancreas to the ampulla. The pancreas is normal without evidence of a mass or inflammation. The spleen is normal in size and homogeneous. The adrenals are normal. There are multiple simple cysts in the left kidney. There is no renal mass or hydronephrosis. There are nonobstructing calculi within lower pole calyces of both kidneys. Largest on the left side and measures 7 mm. There is a large amount of fecal material in the right side of the colon. Multiple diverticula are present in the sigmoid colon and there are few the distal descending colon. No acute diverticulitis is present. The appendix, uterus and ovaries have been removed. Urinary bladder is somewhat distended. There is a smooth thinwall and no intraluminal filling defect is seen within it. No adenopathy or ascites are present in the abdomen or pelvis. There is a moderately severe anterior wedge compression fracture of the T12 vertebra. There is cement in this vertebra following prior kyphoplasty. IMPRESSION: 1. Diverticulosis 2. Bibasilar pneumonia 3. Nonobstructing kidney stones 4. Contour abnormality of the liver suggesting cirrhosis Interpreted and Authenticated by: Britton Bojorquez 05/08/16
[2016-05-08] MEDS: ACETAMINOPHEN 1,000 MG/100 ML BOTTLE IV PRN (20:27)
[2016-05-08] MEDS ORDERED: 0.9 % SODIUM CHLORIDE 1,000 ML IV ONE ×2 (23:25→23:45)
[2016-05-09] MEDS: 0.9 % SODIUM CHLORIDE 1,000 ML IV SCH ×5 (00:07→20:53)
[2016-05-09] MEDS ORDERED: ONDANSETRON ODT 4 MG TABLET SL PRN (00:22)
[2016-05-09] MEDS ORDERED: FLEETS ADULT ENEMA PR PRN (00:22)
[2016-05-09] MEDS ORDERED: diphenhydrAMINE 50 MG/ML VIAL IV PRN (00:22)
[2016-05-09] MEDS ORDERED: MAGNESIUM HYDROXIDE 30 ML ORAL.SUSP PO PRN (00:22)
[2016-05-09] MEDS ORDERED: BENZOCAINE/MENTHOL 1 LOZENGE PO PRN (00:22)
[2016-05-09] MEDS ORDERED: ZOLPIDEM 5 MG TABLET PO PRN (00:22)
[2016-05-09] MEDS ORDERED: VANCOMYCIN PER PHARMACY IV SCH (00:22)
[2016-05-09] MEDS ORDERED: DEXTROSE 50% 50 ML VIAL IV PRN (00:22)
[2016-05-09] MEDS ORDERED: BISACODYL 10 MG SUPP.RECT PR PRN (00:22)
[2016-05-09] MEDS ORDERED: 0.9 % SODIUM CHLORIDE 2,000 ML IV ONE (00:23)
[2016-05-09 00:34] LABS: Basophils # (Auto) 0 K/mcL (0.0-0.3); Basophils % (Auto) 0.5 % (0.0-2.0); Eosinophils # (Auto) 0 K/mcL (0.0-0.7); Eosinophils % (Auto) 0.2 % (0.0-7.0); Granulocytes % (Auto) 74.3 % (38.0-78.0); Lymphocytes # (Auto) 1.4 K/mcL (1.5-4.8); Lymphocytes % (Auto) 16.1 % (15.5-49.0); Mean Cell Volume 79.2 fL (80.0-100.0); Mean Corpuscular HGB Conc 34.2 g/dL (31.0-36.0); Mean Corpuscular Hemoglobin 27.1 pg (26.0-34.0); Monocytes # (Auto) 0.8 K/mcL (0.1-0.9); Monocytes % (Auto) 8.9 % (1.0-9.0); Platelet Count 159 K/mcL (140-440); RBC 2.78 M/mcL (4.00-5.20); Red Cell Distribution Width 13.3 % (11.5-14.5)
[2016-05-09] MEDS ORDERED: NOREPINEPHRINE BITARTRATE 4 MG/4 ML AMPUL IV ONE (00:36)
--- NOTE | 2016-05-09 00:37 | Event Note ---
Was informed that the patient was not doing well and hypotensive. BP 70 systolic, Blood pressure was doing good in the evening when her home bp meds were given. Patient was given 1 L NS bolus ,with no change in BP another 1L bolus ordered and patient transferred to ICU, patient labs and x ray ordered. X ray shows right hilar opacities, new from x ray done yesterday, likely aspiration. Patient to get total of 4 L of fallon saline bolus if BP does not improve will start on Pressores, patient denies any complaints, only back pain when she moves, cooperative and calm, VS reviwed, on 3-4 L nc with oxygen sat 94-98% She is already on vancomycin and zosyn for IV ABX started today. Will get central line if needed.
[2016-05-09 00:39] LABS: ALT/SGPT 22 U/l (0-40); Albumin 2.4 gm/dL (3.2-5.2); Alkaline Phosphatase 86 U/L (39-117); Bilirubin,Direct < 0.2 mg/dL (0.0-0.3); Blood Urea Nitrogen 37 mg/dl (8-23); Gamma Glutamyl Transpeptidase 39 U/L (5-36); Magnesium 1.6 mg/dL (1.6-2.5); Phosphorous 2.5 mg/dL (2.7-4.5); Uric Acid 9.2 mg/dL (2.5-8.0)
[2016-05-09] MEDS ORDERED: POTASSIUM CHLORIDE 20 MEQ/10 ML VIAL IV ONE (00:44)
[2016-05-09] MEDS ORDERED: POTASSIUM CHLORIDE 20 MEQ PACKET ONE ×2 (00:44→02:19)
[2016-05-09] MEDS ORDERED: NOREPINEPHRINE BITARTRATE 8 MG in 0.9 % SODIUM CHLORIDE 242 ML IV SCH (00:45)
[2016-05-09] MEDS: 0.9 % SODIUM CHLORIDE 250 ML IV SCH ×5 (00:45→16:56)
[2016-05-09] MEDS ORDERED: POTASSIUM CHLORIDE 40 MEQ in DEXTROSE 5% IN WATER 500 ML IV ONE (00:45)
[2016-05-09] MEDS ORDERED: 0.9 % SODIUM CHLORIDE 250 ML IV SCH ×2 (00:45→02:15)
[2016-05-09] MEDS ORDERED: POTASSIUM CHLORIDE 20 MEQ PACKET PO ONE ×2 (00:46→02:22)
[2016-05-09] MEDS: PIPERACILLIN SODIUM/TAZOBACTAM 3.375 GM in DEXTROSE 5% IN WATER 50 ML IV SCH ×6 (01:30→23:48)
[2016-05-09] MEDS: NOREPINEPHRINE BITARTRATE 16 MG in 0.9 % SODIUM CHLORIDE 234 ML IV SCH ×4 (01:30→22:27)
[2016-05-09 01:40] LABS: Basophils # (Auto) 0 K/mcL (0.0-0.3); Basophils % (Auto) 0.3 % (0.0-2.0); Eosinophils # (Auto) 0 K/mcL (0.0-0.7); Eosinophils % (Auto) 0.3 % (0.0-7.0); Granulocytes % (Auto) 73.9 % (38.0-78.0); Lymphocytes # (Auto) 1.2 K/mcL (1.5-4.8); Lymphocytes % (Auto) 16.8 % (15.5-49.0); Mean Cell Volume 79.5 fL (80.0-100.0); Mean Corpuscular HGB Conc 33.5 g/dL (31.0-36.0); Mean Corpuscular Hemoglobin 26.6 pg (26.0-34.0); Monocytes # (Auto) 0.6 K/mcL (0.1-0.9); Monocytes % (Auto) 8.7 % (1.0-9.0); Platelet Count 151 K/mcL (140-440); RBC 3.04 M/mcL (4.00-5.20); Red Cell Distribution Width 13.3 % (11.5-14.5)
[2016-05-09 02:06] LABS: Blood Urea Nitrogen 34 mg/dl (8-23)
[2016-05-09] MEDS ORDERED: PANTOPRAZOLE 40 MG VIAL IV ONE (02:08)
[2016-05-09] MEDS ORDERED: DEXTROSE 50% 50 ML VIAL IV ONE ×2 (02:19→02:21)
[2016-05-09] MEDS: PANTOPRAZOLE 40 MG VIAL IV SCH ×3 (02:25→17:10)
[2016-05-09] MEDS ORDERED: HYDROmorphone 2 MG/ML SYRINGE ONE ×2 (03:05→04:47)
[2016-05-09] MEDS: HYDROmorphone 2 MG/ML SYRINGE IV PRN ×5 (03:06→18:41)
[2016-05-09] MEDS: tiZANidine 4 MG TABLET PO SCH ×4 (03:34→20:40)
[2016-05-09 06:49] LABS: Basophils # (Auto) 0 K/mcL (0.0-0.3); Basophils % (Auto) 0 % (0.0-2.0); Eosinophils # (Auto) 0.1 K/mcL (0.0-0.7); Eosinophils % (Auto) 0.7 % (0.0-7.0); Granulocytes % (Auto) 82.3 % (38.0-78.0); Lymphocytes # (Auto) 1.6 K/mcL (1.5-4.8); Lymphocytes % (Auto) 12.2 % (15.5-49.0); Mean Cell Volume 82.9 fL (80.0-100.0); Mean Corpuscular HGB Conc 32.2 g/dL (31.0-36.0); Mean Corpuscular Hemoglobin 26.7 pg (26.0-34.0); Monocytes # (Auto) 0.6 K/mcL (0.1-0.9); Monocytes % (Auto) 4.8 % (1.0-9.0); Platelet Count 269 K/mcL (140-440); RBC 3.36 M/mcL (4.00-5.20); Red Cell Distribution Width 13.7 % (11.5-14.5)
[2016-05-09 07:16] LABS: ALT/SGPT 28 U/l (0-40); Albumin 2.9 gm/dL (3.2-5.2); Alkaline Phosphatase 112 U/L (39-117); Amylase 603 U/L (28-100); Bilirubin,Direct < 0.2 mg/dL (0.0-0.3); Blood Urea Nitrogen 30 mg/dl (8-23); Gamma Glutamyl Transpeptidase 48 U/L (5-36); Magnesium 1.8 mg/dL (1.6-2.5); Phosphorous 2.1 mg/dL (2.7-4.5); Uric Acid 7.6 mg/dL (2.5-8.0)
[2016-05-09] MEDS ORDERED: INSULIN LISPRO 1 UNIT/0.01 ML UNIT SQ SCH ×2 (07:30)
[2016-05-09] MEDS ORDERED: PANTOPRAZOLE 40 MG VIAL IV SCH (07:30)
[2016-05-09 07:38] LABS: Lipase 1894 U/L (7-60)
[2016-05-09] MEDS: LEVOTHYROXINE 150 MCG TABLET PO SCH (07:52)
[2016-05-09] MEDS: GEMFIBROZIL 600 MG TABLET PO SCH ×2 (07:52→17:15)
[2016-05-09] MEDS: DOCUSATE SODIUM 100 MG CAPSULE PO SCH ×2 (07:54→19:13)
--- NOTE | 2016-05-09 08:18 | Orthopedic Progress Note ---
Subjective Patient information: Note initiated : 05/09/16 at 8:15 am Service Date, if different from initiated Date: [] Patient: Paula Mcfarlane 70 y/o F admitted on 05/06/16 for Lumbar Decompression. Chief Complaint: [] Principal diagnosis: cauda equina syndrome Interval history: transfered icu b/c of hypotension very awake, alert, sitting up in bed eating breakfast, improved compared to previous Objective Vital signs: Vital Signs Temp Pulse Pulse Pulse Resp BP BP 05/09/16 06:00 24 100/59 05/09/16 05:30 25 H 100/59 05/09/16 05:28 15 86/53 05/09/16 05:00 22 87/55 05/09/16 04:30 19 94/58 05/09/16 04:00 98.4 F 82 24 83/54 05/09/16 03:30 27 H 97/55 05/09/16 03:00 32 H 92/57 05/09/16 02:45 19 82/45 05/09/16 02:30 19 104/64 05/09/16 02:15 21 100/60 05/09/16 02:00 21 96/61 05/09/16 01:59 58 L 05/09/16 01:45 21 104/59 05/09/16 01:30 10 L 94/61 05/09/16 01:15 21 76/51 05/09/16 01:00 13 88/53 05/09/16 00:30 66 21 79/44 05/09/16 00:20 98.5 F 21 79/47 05/09/16 00:15 98.2 F 16 78/44 05/09/16 00:07 78 22 78/42 05/09/16 00:05 73 22 86/51 05/08/16 23:58 76 24 76/40 05/08/16 23:55 76 24 95/54 05/08/16 23:49 98.3 F 74 24 80/41 05/08/16 23:45 56 L 22 70/30 05/08/16 23:43 74 26 H 74/46 05/08/16 23:39 74 26 H 80/40 05/08/16 23:34 56 L 24 62/40 05/08/16 23:30 74 24 71/45 05/08/16 23:27 74 24 66/30 05/08/16 23:15 75 26 H 65/44 05/08/16 23:10 75 24 66/38 05/08/16 23:00 58 L 24 54/38 05/08/16 19:30 97.6 F 88 22 128/80 05/08/16 19:23 02 19:22 05/08/16 16:00 96.9 F L 20 118/74 05/08/16 12:00 98.4 F 86 18 136/68 Pulse Ox 05/09/16 06:00 95 05/09/16 05:30 93 05/09/16 05:28 91 05/09/16 05:00 92 05/09/16 04:30 93 05/09/16 04:00 93 05/09/16 03:30 91 05/09/16 03:00 91 05/09/16 02:45 91 05/09/16 02:30 95 05/09/16 02:15 94 05/09/16 02:00 93 05/09/16 01:59 95 05/09/16 01:45 93 05/09/16 01:30 96 05/09/16 01:15 96 05/09/16 01:00 98 05/09/16 00:30 98 05/09/16 00:20 96 05/09/16 00:15 05/09/16 00:07 96 05/09/16 00:05 93 05/08/16 23:58 98 05/08/16 23:55 98 05/08/16 23:49 98 05/08/16 23:45 98 05/08/16 23:43 98 05/08/16 23:39 97 05/08/16 23:34 97 05/08/16 23:30 98 05/08/16 23:27 94 05/08/16 23:15 96 05/08/16 23:10 98 05/08/16 23:00 96 05/08/16 19:30 92 05/08/16 19:23 95 05/08/16 19:22 95 05/08/16 16:00 95 05/08/16 12:00 93 Intake and Output 05/08/16 05/09/16 05/09/16 21:59 05:59 13:59 Intake Total 1050 / 1050 4350 / 4350 2504 / 2504 Output Total 1400 / 1400 1230 / 1230 120 / 120 Balance -350 / -350 3120 / 3120 2384 / 2384 Intake: IV 1050 / 1050 4050 / 4050 2304 / 2304 Sodium Chloride 0.9% 1, 1000 / 1000 4000 / 4000 904 / 904 000 ml @ 125 mls/hr IV . Q8H [facility] Rx#:[id number] Dextrose 5% in Water 50 50 / 50 50 / 50 50 / 50 ml @ 100 mls/hr IV Q6H [facility] with Zosyn 3.375 gm Rx#:[id number] Sodium Chloride 0.9% 250 250 / 250 ml @ 250 mls/hr IV Q24H [facility] with Vancomycin 1,000 mg Rx#:[id number] Oral 300 / 300 200 / 200 Output: Urine Catheter Amount 1400 / 1400 1230 / 1230 120 / 120 Other: Meal cream soup Percent of Meal Consumed 5% Feeding Ability Assist with Tray Set Up # Bowel Movements 1 Weight 142 lb 144 lb 9.6 oz Intake & Output: Intake & Output 05/08/16 05/09/16 05/09/16 21:59 05:59 13:59 Intake Total 1050 / 1050 4350 / 4350 2504 / 2504 Output Total 1400 / 1400 1230 / 1230 120 / 120 Balance -350 / -350 3120 / 3120 2384 / 2384 Weight 142 lb 144 lb 9.6 oz Intake: IV 1050 / 1050 4050 / 4050 2304 / 2304 Sodium Chloride 0.9% 1, 1000 / 1000 4000 / 4000 904 / 904 000 ml @ 125 mls/hr IV . Q8H [facility] Rx#:[id number] Dextrose 5% in Water 50 50 / 50 50 / 50 50 / 50 ml @ 100 mls/hr IV Q6H [facility] with Zosyn 3.375 gm Rx#:[id number] Sodium Chloride 0.9% 250 250 / 250 ml @ 250 mls/hr IV Q24H [facility] with Vancomycin 1,000 mg Rx#:[id number] Oral 300 / 300 200 / 200 Output: Urine Catheter Amount 1400 / 1400 1230 / 1230 120 / 120 Other: Meal cream soup Percent of Meal Consumed 5% Feeding Ability Assist with Tray Set Up # Bowel Movements 1 Additional Comments: neuro improved, compared with pre op but remains significantly impaired - Labs CBC & BMP: 05/09/16 03:49 05/09/16 03:49 Labs: Orthopedic Labs 05/06/16 12:46 POC PT 13.7 POC INR 1.2 05/09/16 05/09/16 05/08/16 03:49 00:58 23:54 Hgb 9.0 L 8.1 L 7.5 L Hct 27.8 L 24.2 L 22.0 L 05/08/16 05/08/16 05/07/16 08:04 04:30 04:15 Hgb 11.3 L 10.9 L 10.8 L Hct 34.4 L 33.3 L 33.2 L 05/06/16 12:46 Hgb 11.1 L Hct 33.9 L Assessment and Plan (1) Paraplegia will taper steroid tomorrow. continue pain management. will need inpatient rehab will order tlso and begin to mobilize tlso avail, spoke with pt and they will mobilize in brace today Status: Acute
--- NOTE | 2016-05-09 08:43 | XRay Report ---
HISTORY: Reason for Exam:possible aspiration FINDINGS: There is a vague perihilar infiltrate in the right lung. This is new since 05/07/16. There are bands of discoid atelectasis in the lower thorax bilaterally. Mildly prominent increased interstitial lung markings are present around the left upper hilum. The heart size is upper limits of normal in size and has increased in size since yesterday. No pleural effusion is present. IMPRESSION: New perihilar infiltrate which could be pneumonia or aspiration. This is less likely pulmonary edema Interpreted and Authenticated by: Britton Bojorquez 05/09/16
[2016-05-09] MEDS ORDERED: INSULIN GLARGINE, HUMAN 1 UNIT/0.01 ML SQ SCH (09:00)
--- NOTE | 2016-05-09 09:40 | Internal Med Progress Note ---
Medical - PN: Subj Patient information: Note initiated : 05/09/16 at 9:36 am Service Date, if different from initiated Date: [] Patient: Paula Mcfarlane 70 y/o F admitted on 05/06/16 for Lumbar Decompression. Chief Complaint: [] Interval history: The patient seen examined, overnight events noted Patient was hypotensive last night, requiring fluid bolus and pressors,\The patient was given 4 L IV bolus and was started on levophed, labs and imaging shows aspirational PNA as well acute pancreatitis. lacate was elevated. patient this AM however is stable, on minimal pressors, she had breakfast this AM before we could evaluate her labs. She has no abdominal pain, no nause or vomiting, only issue is back pain. I reviewed the findings with her. Hb was low last night, at 7.5, but seems that was dilutional, this AM is 9.0, occult blood testing is neg in stools, no obvious source of blood loss. She was hypoglycemic overnight and needed a d5, it seems she missed her dose of steroids yesterday and was on insulin for steroid induced hyperglycemia. Pertinent ROS: Denies headache, dizziness Denies chest pain, palpitations Denies cough or shortness of breath Denies abdominal pain, nausea or vomiting. back pain present. Additional PMFSH (Level 3 Only): s/p cholecystectomy - Constitutional Vitals: Vital Signs Temp Pulse Resp BP Pulse Ox 98.4 F 82 24 100/59 95 05/09/16 04:00 05/09/16 04:00 05/09/16 06:00 05/09/16 06:00 05/09/16 06:00 Period Temp Pulse Resp BP Sys/Roldan Pulse Ox Last 24 Hr 96.9 F-98.5 F 56-88 10-32 54-136/30-80 91-98 Intake and Output 05/08/16 05/09/16 05/09/16 21:59 05:59 13:59 Intake Total 1050 / 1050 4350 / 4350 2504 / 2504 Output Total 1400 / 1400 1230 / 1230 120 / 120 Balance -350 / -350 3120 / 3120 2384 / 2384 Weight 142 lb 144 lb 9.6 oz Intake & Output: Intake & Output 05/08/16 05/09/16 05/09/16 21:59 05:59 13:59 Intake Total 1050 / 1050 4350 / 4350 2504 / 2504 Output Total 1400 / 1400 1230 / 1230 120 / 120 Balance -350 / -350 3120 / 3120 2384 / 2384 Weight 142 lb 144 lb 9.6 oz Intake: IV 1050 / 1050 4050 / 4050 2304 / 2304 Sodium Chloride 0.9% 1, 1000 / 1000 4000 / 4000 904 / 904 000 ml @ 125 mls/hr IV . Q8H DIDIER Rx#:[id number] Dextrose 5% in Water 50 50 / 50 50 / 50 50 / 50 ml @ 100 mls/hr IV Q6H DIDIER with Zosyn 3.375 gm Rx#:[id number] Sodium Chloride 0.9% 250 250 / 250 ml @ 250 mls/hr IV Q24H DIDIER with Vancomycin 1,000 mg Rx#:[id number] Oral 300 / 300 200 / 200 Output: Urine Catheter Amount 1400 / 1400 1230 / 1230 120 / 120 Other: Meal cream soup Percent of Meal Consumed 5% Feeding Ability Assist with Tray Set Up # Bowel Movements 1 Exam: Constitutional; Afebrile, cooperative, alert, not in distress. Eyes- No icterus, Pupils equal, reactive, No periorbital swelling Ears- Ext ear normal, hearing normal to conversation. Neck- Midline trachea, supple Respiratory system: Air Entry equal on both sides, right basilar conducted sounds. CVS- Rate rhythm regular, S1,S2 heard, no gallop, no rub. Abdomen- Soft abdomen, diffuse soreness, no organomegaly, , no guarding or rigidity, ORE GRADER- AOOx3, moving upper extremities. Medical - PN: Obj Da - Labs CBC & Chem 7: 05/09/16 03:49 05/09/16 03:49 Labs: Abnormal Lab Results 05/09/16 05/09/16 05/09/16 03:49 03:49 00:58 WBC 12.9 H RBC 3.36 L Hgb 9.0 L Hct 27.8 L POC Hct MCV Gran % 82.3 H Lymph % (Auto) 12.2 L Gran # 10.6 H Lymph # Seg Neutrophils % Lymphocytes % VBG Lactic Acid Potassium 2.7 L* Chloride 112 H 112 H Carbon Dioxide 20 L 21 L Anion Gap POC BUN BUN 30 H 34 H Glucose 201 H 62 L POC Glucose Uric Acid Calcium 7.7 L 7.0 L Phosphorus 2.1 L GGT 48 H AST 98 H Alkaline Phosphatase Lactate Dehydrogenase 302 H Total Protein 5.7 L Albumin 2.9 L Globulin Albumin/Globulin Ratio Triglycerides 231 H Amylase 603 H Lipase 1894 H Beta-Hydroxybutyrate Urine Glucose (UA) Urine RBC 05/09/16 05/08/16 05/08/16 00:58 23:54 23:54 WBC RBC 3.04 L Hgb 8.1 L Hct 24.2 L POC Hct MCV 79.5 L Gran % Lymph % (Auto) Gran # Lymph # 1.2 L Seg Neutrophils % Lymphocytes % VBG Lactic Acid 2.4 H Potassium 2.7 L* Chloride Carbon Dioxide Anion Gap POC BUN BUN 37 H Glucose POC Glucose Uric Acid 9.2 H Calcium 7.5 L Phosphorus 2.5 L GGT 39 H AST 83 H Alkaline Phosphatase Lactate Dehydrogenase 266 H Total Protein 4.7 L Albumin 2.4 L Globulin Albumin/Globulin Ratio Triglycerides 179 H Amylase Lipase Beta-Hydroxybutyrate Urine Glucose (UA) Urine RBC 05/08/16 05/08/16 05/08/16 23:54 10:12 10:12 WBC RBC 2.78 L Hgb 7.5 L Hct 22.0 L POC Hct MCV 79.2 L Gran % Lymph % (Auto) Gran # Lymph # 1.4 L Seg Neutrophils % Lymphocytes % VBG Lactic Acid 2.4 H Potassium Chloride Carbon Dioxide Anion Gap POC BUN BUN Glucose POC Glucose Uric Acid Calcium Phosphorus GGT AST Alkaline Phosphatase Lactate Dehydrogenase Total Protein Albumin Globulin Albumin/Globulin Ratio Triglycerides Amylase Lipase Beta-Hydroxybutyrate 3.28 H Urine Glucose (UA) Urine RBC 05/08/16 05/08/16 05/08/16 08:04 08:04 08:04 WBC 15.7 H RBC Hgb 11.3 L Hct 34.4 L POC Hct MCV Gran % Lymph % (Auto) Gran # Lymph # Seg Neutrophils % 88 H Lymphocytes % 9 L VBG Lactic Acid Potassium Chloride Carbon Dioxide 19 L Anion Gap 25.0 H POC BUN BUN 37 H Glucose 253 H POC Glucose Uric Acid 10.9 H Calcium Phosphorus GGT 53 H AST 86 H Alkaline Phosphatase 151 H Lactate Dehydrogenase 337 H Total Protein Albumin Globulin 3.9 H Albumin/Globulin Ratio 0.9 L Triglycerides 248 H Amylase 140 H Lipase 251 H Beta-Hydroxybutyrate Urine Glucose (UA) Urine RBC 05/08/16 05/07/16 05/07/16 04:30 04:15 04:15 WBC 11.8 H RBC Hgb 10.9 L 10.8 L Hct 33.3 L 33.2 L POC Hct MCV Gran % 91.3 H Lymph % (Auto) 6.2 L Gran # 10.7 H Lymph # 0.7 L Seg Neutrophils % Lymphocytes % VBG Lactic Acid Potassium Chloride 93 L Carbon Dioxide Anion Gap 21.0 H POC BUN BUN 33 H Glucose 293 H POC Glucose Uric Acid 9.5 H Calcium Phosphorus GGT 49 H AST 39 H Alkaline Phosphatase 166 H Lactate Dehydrogenase Total Protein Albumin Globulin Albumin/Globulin Ratio Triglycerides 230 H Amylase Lipase Beta-Hydroxybutyrate Urine Glucose (UA) Urine RBC 05/06/16 05/06/16 05/06/16 13:09 12:46 12:46 WBC RBC Hgb 11.1 L Hct 33.9 L POC Hct 35.0 L MCV Gran % Lymph % (Auto) Gran # Lymph # Seg Neutrophils % Lymphocytes % VBG Lactic Acid Potassium Chloride Carbon Dioxide Anion Gap POC BUN 35 H BUN Glucose POC Glucose 201 H Uric Acid Calcium Phosphorus GGT AST Alkaline Phosphatase Lactate Dehydrogenase Total Protein Albumin Globulin Albumin/Globulin Ratio Triglycerides Amylase Lipase Beta-Hydroxybutyrate Urine Glucose (UA) >=500 A Urine RBC 4 H Meds: Medications Bisacodyl (Dulcolax) 10 mg [place] Q2-3DAYS PRN PRN Reason: Constipation Dextrose (Dextrose 50%) 0 ml IV UD PRN PRN Reason: Hypoglycemia Diagnostic Test (Pha) (Accu-Chek) 1 each FS Q6 [facility] Diphenhydramine HCl (Benadryl) 12.5 mg IV Q6HP PRN PRN Reason: Allergic Symptoms Docusate Sodium (Colace) 100 mg PO BID [facility] Last Admin: 05/09/16 07:54 Dose: Not Given Fentanyl (Duragesic) 50 mcg TOPICAL Q72H [facility] Fluoxetine HCl (Prozac) 40 mg PO DAILY [facility] Gabapentin (Neurontin) 100 mg PO TID [facility] Gemfibrozil (Lopid) 600 mg PO BIDAC [facility] Last Admin: 05/09/16 07:52 Dose: 600 mg Hydromorphone HCl (Dilaudid) 0 mg IV Q2HP PRN PRN Reason: Pain Last Admin: 05/09/16 07:35 Dose: 1 mg Sodium Chloride (Sodium Chloride 0.9%) 1,000 mls @ 125 mls/hr IV .Q8H [facility] Last Admin: 05/09/16 02:23 Dose: 125 mls/hr Acetaminophen (Ofirmev) 1,000 mg in 100 mls @ 200 mls/hr IV Q6HP PRN PRN Reason: PAIN/FEVER > 101 Piperacillin Sod/Tazobactam (Sod 3.375 gm/ Dextrose) 50 mls @ 100 mls/hr IV Q6H [facility] Last Admin: 05/09/16 05:02 Dose: Not Given Vancomycin HCl 1,000 mg/ (Sodium Chloride) 250 mls @ 250 mls/hr IV Q24H DIDIER Sodium Chloride (Sodium Chloride 0.9%) 250 mls @ 20 mls/hr IV .[id number] [facility] Last Admin: 05/09/16 00:45 Dose: 20 mls/hr Norepinephrine Bitartrate 16 (mg/ Sodium Chloride) 250 mls @ 9.37 mls/hr IV Q24H DIDIER; 10 MCG/MIN PRN Reason: Protocol Last Admin: 05/09/16 07:53 Dose: 5 mcg/min, 4.68 mls/hr Sodium Chloride (Sodium Chloride 0.9%) 250 mls @ 20 mls/hr IV .[id number] [facility] Last Admin: 05/09/16 02:24 Dose: Not Given Insulin Human Lispro (Humalog) 0 unit SQ Q6 [facility]IER PRN Reason: Protocol Levothyroxine Sodium (Synthroid) 150 mcg PO ACB [facility] Last Admin: 05/09/16 07:52 Dose: 150 mcg Lorazepam (Ativan) 1 mg PO TIDP PRN PRN Reason: Anxiety Magnesium Hydroxide (Milk Of Magnesia) 30 ml PO DAILYP PRN PRN Reason: Constipation Methocarbamol (Robaxin) 750 mg PO Q6HP PRN PRN Reason: Muscle Spasm Methylprednisolone Sodium Succinate (Solu-Medrol) 40 mg IV Q8 [facility] Ondansetron HCl (Zofran Odt) 4 mg SL Q4HP PRN PRN Reason: Nausea And Vomiting Oxycodone HCl (Roxicodone) 0 mg PO Q4HP PRN PRN Reason: Pain Pantoprazole Sodium (Protonix) 40 mg IV BIDAC [facility] Last Admin: 05/09/16 07:35 Dose: 40 mg Sodium Biphosphate/Sodium Phosphate (Fleets Adult) 1 dose [place] Q3-4DAYS PRN PRN Reason: Constipation Throat Lozenges (Cepacol) 1 lozenge PO PRN PRN PRN Reason: Sore Throat Tizanidine HCl (Zanaflex) 4 mg PO Q6H DIDIER Last Admin: 05/09/16 03:34 Dose: Not Given Vancomycin HCl (Vancomycin Per Pharmacy) 1 order IV UD [facility] Zolpidem Tartrate (Ambien) 5 mg PO HSP PRN PRN Reason: Insomnia Medical - PN: A/P - Time Spent With Patient Total time spent is greater than 50% in coordination of care (as documented) at patient's floor/unit and/or counseling patient: (1) Paraplegia Status: Acute Assessment and plan: s/p decompression surgery management as per ortho hold off on PT today as she is still on pressors, consider from AM if bp remains stable. Current Visit: Yes (2) Diabetes mellitus Status: Acute Assessment and plan: glucose level was low yesterday d/c lantus will be npo now in light of pancreatitis q6 fs and moderate scale insulin monitor Current Visit: Yes (3) Hypertension Status: Acute Assessment and plan: BP low due to septic shock hold all bp meds she is on high does of lisinopril atenolol, amolodipine and lasix as outpatient. resume them slowly. Current Visit: Yes (4) Anxiety Status: Acute Assessment and plan: stable on ssri. Current Visit: Yes (5) Urinary retention Status: Acute Assessment and plan: s/p stahl placement etiology of retention? medications likely vs spinal in origin. Current Visit: Yes (6) Pneumonia Status: Acute Assessment and plan: HCAP vs Aspirational PNA on IV vancomycin and Zosyn continue same cultures negative so far Current Visit: Yes (7) Septic shock Status: Acute Assessment and plan: Due to pna/ pancreatitis IV fluids, check lactate labs ok patient mentation fine wean of levophed today if possible monitor closely. Current Visit: Yes (8) Diarrhea Status: Acute Assessment and plan: h/o constipation x 5 days received some stool softners but 5-6 episodes since overnight check cdiff. Current Visit: Yes (9) Acute pancreatitis Status: Acute Assessment and plan: etiology of pancreatitis uncertain likely medications given during surgery Home meds like lasix/ lisinopril amlodipine are also considered among meds to cause pancratitis, but she supposedly was on them before. she does not drink etoh, s/p cholecystetomy, CT does not show any Gall stones, Alk phos is normal, autoimmue pancratitis to present this time is unusual, TG level is < 500 CT scan done yesterday did not show any pancreatic abnormality will keep pt npo for now, pain management high risk of mortality, 40% as per jorge criteria Current Visit: Yes - Narrative A/P Narrative: DVT scd Diet NPO spent > 1 hr rendering critical care to the patient, stabilizing patient, managing fluids, vasopresors, reviewing labs imaging and chart review.
[2016-05-09] MEDS: VANCOMYCIN 1,000 MG in 0.9 % SODIUM CHLORIDE 250 ML IV SCH (11:21)
[2016-05-09] MEDS: methylPREDNISolone SOD SUCC 40 MG/ML VIAL IV SCH ×3 (11:21→22:25)
[2016-05-09] MEDS: LORazepam 1 MG TABLET PO PRN ×2 (11:22→20:34)
[2016-05-09] MEDS: FLUoxetine HCL 20 MG CAPSULE PO SCH (11:22)
[2016-05-09] MEDS: GABAPENTIN 100 MG CAPSULE PO SCH ×3 (11:22→20:32)
[2016-05-09] MEDS: INSULIN LISPRO 1 UNIT/0.01 ML UNIT SQ SCH ×3 (14:09→23:57)
[2016-05-09] MEDS: ACETAMINOPHEN 1,000 MG/100 ML BOTTLE IV PRN (16:33)
[2016-05-10] MEDS: 0.9 % SODIUM CHLORIDE 1,000 ML IV SCH ×3 (00:10→18:39)
[2016-05-10] MEDS: HYDROmorphone 2 MG/ML SYRINGE IV PRN ×3 (02:53→20:27)
[2016-05-10] MEDS: tiZANidine 4 MG TABLET PO SCH ×4 (02:53→21:09)
[2016-05-10] MEDS: 0.9 % SODIUM CHLORIDE 250 ML IV SCH ×5 (03:30→18:38)
[2016-05-10] MEDS: PIPERACILLIN SODIUM/TAZOBACTAM 3.375 GM in DEXTROSE 5% IN WATER 50 ML IV SCH ×3 (05:06→20:15)
[2016-05-10] MEDS: methylPREDNISolone SOD SUCC 40 MG/ML VIAL IV SCH ×3 (05:15→21:09)
[2016-05-10] MEDS: INSULIN LISPRO 1 UNIT/0.01 ML UNIT SQ SCH ×3 (05:15→17:24)
[2016-05-10 05:53] LABS: Basophils # (Auto) 0 K/mcL (0.0-0.3); Basophils % (Auto) 0 % (0.0-2.0); Eosinophils # (Auto) 0 K/mcL (0.0-0.7); Eosinophils % (Auto) 0.4 % (0.0-7.0); Granulocytes % (Auto) 90.3 % (38.0-78.0); Lymphocytes # (Auto) 0.4 K/mcL (1.5-4.8); Mean Cell Volume 82.3 fL (80.0-100.0); Mean Corpuscular HGB Conc 32.5 g/dL (31.0-36.0); Mean Corpuscular Hemoglobin 26.8 pg (26.0-34.0); Monocytes # (Auto) 0.1 K/mcL (0.1-0.9); Monocytes % (Auto) 2.3 % (1.0-9.0); Platelet Count 170 K/mcL (140-440); RBC 3.32 M/mcL (4.00-5.20); Red Cell Distribution Width 14.3 % (11.5-14.5)
[2016-05-10 06:28] LABS: ALT/SGPT 30 U/l (0-40); Albumin 2.9 gm/dL (3.2-5.2); Alkaline Phosphatase 116 U/L (39-117); Amylase 142 U/L (28-100); Bilirubin,Direct < 0.2 mg/dL (0.0-0.3); Blood Urea Nitrogen 23 mg/dl (8-23); C-Reactive Protein 6.3 mg/dl (0.0-0.8); Gamma Glutamyl Transpeptidase 48 U/L (5-36); Lipase 100 U/L (7-60); Magnesium 1.9 mg/dL (1.6-2.5); Phosphorous 2.5 mg/dL (2.7-4.5); Uric Acid 6.1 mg/dL (2.5-8.0)
[2016-05-10 06:41] LABS: Erythrocyte Sedimentation Rate 83 mm/hr (0-20)
[2016-05-10] MEDS: LEVOTHYROXINE 150 MCG TABLET PO SCH (06:58)
[2016-05-10] MEDS: PANTOPRAZOLE 40 MG VIAL IV SCH ×2 (06:58→17:24)
[2016-05-10] MEDS: GEMFIBROZIL 600 MG TABLET PO SCH ×2 (06:58→17:24)
[2016-05-10] MEDS: METHOCARBAMOL 750 MG TABLET PO PRN ×3 (07:22→17:36)
[2016-05-10] MEDS: oxyCODONE HCL 5 MG TABLET PO PRN ×3 (07:22→17:36)
--- NOTE | 2016-05-10 09:28 | Operative Note ---
DATE OF OPERATION: 05/06/2016 PREOPERATIVE DIAGNOSIS: Developing paraplegia/Cauda equina syndrome. POSTOPERATIVE DIAGNOSIS: Developing paraplegia/Cauda equina syndrome. OPERATION PROPOSED: Decompression of thoracic segments T11 through L1. OPERATION PERFORMED: Decompression of thoracic segments T11 through L1. OPERATING SURGEON: Forrest Gomes MD COMPACT ASSEMBLER: Alejo Suggs MD INDICATIONS: This is a lady who presents with acute onset of paraparesis, which has developed overnight. She had a vertebroplasty at T12 performed on Tuesday afternoon. She apparently was able to ambulate out of the pain clinic and then over that evening developed progressive pain and neurologic dysfunction to the point where she really has almost no function in her lower extremities. Exam also shows loss of rectal tone. A CT scan has demonstrated that there is some ____ at the superior aspect of the T12 vertebral body secondary to some bony protrusion into the canal as well as a small amount of methacrylate which is dissected into the canal. We have elected to proceed with an emergent decompression. We have considered an MRI scan to add additional information but the patient was not able to lay still and it is felt that additional time to try and had anesthesia perform an MRI scan with general anesthetic is simply going to delay further care of her problem. She probably would require transfer to [facility] for this additional imaging. OPERATION IN DETAIL: Informed consent was obtained. She was taken to the operating room where she was provided with appropriate anesthetic and prophylactic antibiotics. She was carefully positioned. She was provided with a fairly high dose steroid to minimize the inflammatory response. We did also provide her with IV antibiotics prophylactically. A midline incision was made. I dissected down along with the spinous process and lamina of T12, essentially T11 to L1. A high speed bur was used and a hemilaminectomy of T12 was performed. I removed a portion of T11. I extended this decompression distal to well below the level of compression. We were able to do very adequate decompression posteriorly through this hemilaminectomy and extended this crossed midline, but we did save some of the supraspinous ligament and spinous process in an effort to minimize any risk of further kyphosis. I removed a portion of the medial border of the pedicle of T12 and then was able to dissect beneath the thecal sac. We did not retract the thecal sac with the level root with any posterior retractor. I was able to gently get around the methacrylate and this was removed in piecemeal. There was also some significant osteophyte, which protruded posteriorly. This was removed. At the end of the decompression the canal seemed very adequately decompressed and the bulk of the methacrylate had been removed. We irrigated thoroughly. We repaired her fascia with a #1 Vicryl. A deep drain had been placed, 2-0 inverted deep dermal, and running intracuticular was used in the skin. The procedure was tolerated well. There were no complications. ESTIMATED BLOOD LOSS: 150 mL. JANIE:[email or web address] Job ID: [id number] Doc ID: [id number] Forrest Gomes MD
[2016-05-10] MEDS ORDERED: IPRATROPIUM/ALBUTEROL 3 ML AMPUL.NEB NEB ONE (10:00)
[2016-05-10] MEDS: NOREPINEPHRINE BITARTRATE 16 MG in 0.9 % SODIUM CHLORIDE 234 ML IV SCH (10:24)
--- NOTE | 2016-05-10 11:05 | XRay Report ---
CLINICAL INFORMATION: Hypoxia COMPARISON: 05/08/2016 FINDINGS: The heart is mildly enlarged - slightly increased. Mild mediastinal widening. Pulmonary vessels are grossly normal. Moderate airspace disease is seen in the perihilar and basilar regions which is new. No definite effusion IMPRESSION: Moderate bilateral perihilar and basilar infiltrates. Suspect aspiration or ARDS Interpreted and Authenticated by: Juan Brennan 05/10/16
[2016-05-10] MEDS: DOCUSATE SODIUM 100 MG CAPSULE PO SCH ×2 (11:56→20:17)
[2016-05-10] MEDS: fentaNYL 50 MCG PATCH TOPICAL SCH (12:09)
[2016-05-10] MEDS: HEPARIN 5,000 UNIT/ML VIAL SQ SCH ×2 (12:09→21:09)
[2016-05-10] MEDS: FLUoxetine HCL 20 MG CAPSULE PO SCH (12:10)
[2016-05-10] MEDS: GABAPENTIN 100 MG CAPSULE PO SCH ×3 (12:10→21:10)
[2016-05-10] MEDS: VANCOMYCIN 1,000 MG in 0.9 % SODIUM CHLORIDE 250 ML IV SCH (12:30)
--- NOTE | 2016-05-10 13:10 | Internal Med Progress Note ---
Medical - PN: Subj Patient information: Note initiated : 05/10/16 at 1:04 pm Service Date, if different from initiated Date: [] Patient: Paula Mcfarlane 70 y/o F admitted on 05/06/16 for Lumbar Decompression. Chief Complaint: [] Interval history: The patient seen examined no acute overnight events, was doing well this AM, off pressors overnight. She had just some back pain, but no other complaints during rounds Patient had PT and after PT her condition worsened. She became more short of breath, hypoxic, tachcyardic, requring NRB to keep her oxygen sats up. She was placed on bipap and one round of duoneb given. The patient stabilized by mid afternoon and was taken off bipap for a short while X ray done showed bibasilar infiltrates, ARDS like picture secodary to aspiration pna. Labs show improvement in lipase, she was able to tolerate full liquid diet well today. Reviewed with neuro surgery ok to start hep sq for DVT prophylaxis. Pertinent ROS: Denies headache, dizziness Denies chest pain, palpitations Denies cough or shortness of breath Denies abdominal pain, nausea or vomiting. however later in the morning. she had shortness of breath as well as back pain, Additional PMFSH (Level 3 Only): reviewed - Constitutional Vitals: Vital Signs Temp Pulse Resp BP Pulse Ox 96.5 F L 98 H 38 H 128/64 100 05/10/16 12:00 05/10/16 11:09 05/10/16 12:00 05/10/16 12:00 05/10/16 12:00 Period Temp Pulse Resp BP Sys/Roldan Pulse Ox Last 24 Hr 96.5 F-98.9 F 58-113 16-99 97-172/51-105 82-100 Intake and Output 05/09/16 05/10/16 05/10/16 21:59 05:59 13:59 Intake Total 1457 / 1457 876 / 876 850 / 850 Output Total 900 / 900 875 / 875 200 / 200 Balance 557 / 557 650 / 650 Weight 151 lb 14.4 oz Intake & Output: Intake & Output 05/09/16 05/10/16 05/10/16 21:59 05:59 13:59 Intake Total 1457 / 1457 876 / 876 850 / 850 Output Total 900 / 900 875 / 875 200 / 200 Balance 557 / 557 650 / 650 Weight 151 lb 14.4 oz Intake: IV 1457 / 1457 776 / 776 850 / 850 Sodium Chloride 0.9% 1, 1000 / 1000 410 / 410 850 / 850 000 ml @ 125 mls/hr IV . Q8H [facility] Rx#:[id number] Sodium Chloride 0.9% 250 0 / 0 250 / 250 ml @ 20 mls/hr IV . [id number] [facility] Rx#:[id number] Levophed 16 mg In Sodium 30 / 30 16 / 16 Chloride 0.9% 234 ml @ 10 MCG/MIN 9.37 mls/hr IV Q24H [facility] Rx#:[id number] Dextrose 5% in Water 50 100 / 100 100 / 100 ml @ 100 mls/hr IV Q6H [facility] with Zosyn 3.375 gm Rx#:[id number] Sodium Chloride 0.9% 250 250 / 250 ml @ 250 mls/hr IV Q24H [facility] with Vancomycin 1,000 mg Rx#:[id number] Oral 100 / 100 Output: Urine Catheter Amount 900 / 900 875 / 875 200 / 200 Exam: Constitutional; Afebrile, cooperative, alert, not in distress. Eyes- No icterus, Pupils equal, reactive, No periorbital swelling Ears- Ext ear normal, hearing normal to conversation. Neck- Midline trachea, supple Respiratory system: Air Entry equal on both sides, yimi rhonchi. rt > left CVS- Rate rhythm regular, S1,S2 heard, no gallop, no rub. Abdomen- Soft nontender abdomen, no organomegaly, no tenderness, no guarding or rigidity, [employer]- AOOx3, able to move her lower legs better, sensation present in both lower limbs Medical - PN: Obj Da - Labs CBC & Chem 7: 05/10/16 03:45 05/10/16 03:45 Labs: Abnormal Lab Results 05/10/16 05/10/16 05/09/16 03:45 03:45 03:49 WBC RBC 3.32 L Hgb 8.9 L Hct 27.3 L MCV Gran % 90.3 H Lymph % (Auto) 7.0 L Gran # Lymph # 0.4 L Seg Neutrophils % Lymphocytes % ESR 83 H VBG Lactic Acid Sodium 148 H Potassium Chloride 117 H 112 H Carbon Dioxide 18 L 20 L Anion Gap BUN 30 H Glucose 157 H 201 H Uric Acid Calcium 8.5 L 7.7 L Phosphorus 2.5 L 2.1 L GGT 48 H 48 H AST 66 H 98 H Alkaline Phosphatase Lactate Dehydrogenase 293 H 302 H C-Reactive Protein 6.3 H Total Protein 5.7 L Albumin 2.9 L 2.9 L Globulin Albumin/Globulin Ratio Triglycerides 248 H 231 H Amylase 142 H 603 H Lipase 100 H 1894 H Beta-Hydroxybutyrate 05/09/16 05/09/16 05/09/16 03:49 00:58 00:58 WBC 12.9 H RBC 3.36 L 3.04 L Hgb 9.0 L 8.1 L Hct 27.8 L 24.2 L MCV 79.5 L Gran % 82.3 H Lymph % (Auto) 12.2 L Gran # 10.6 H Lymph # 1.2 L Seg Neutrophils % Lymphocytes % ESR VBG Lactic Acid Sodium Potassium 2.7 L* Chloride 112 H Carbon Dioxide 21 L Anion Gap BUN 34 H Glucose 62 L Uric Acid Calcium 7.0 L Phosphorus GGT AST Alkaline Phosphatase Lactate Dehydrogenase C-Reactive Protein Total Protein Albumin Globulin Albumin/Globulin Ratio Triglycerides Amylase Lipase Beta-Hydroxybutyrate 05/08/16 05/08/16 05/08/16 23:54 23:54 23:54 WBC RBC 2.78 L Hgb 7.5 L Hct 22.0 L MCV 79.2 L Gran % Lymph % (Auto) Gran # Lymph # 1.4 L Seg Neutrophils % Lymphocytes % ESR VBG Lactic Acid 2.4 H Sodium Potassium 2.7 L* Chloride Carbon Dioxide Anion Gap BUN 37 H Glucose Uric Acid 9.2 H Calcium 7.5 L Phosphorus 2.5 L GGT 39 H AST 83 H Alkaline Phosphatase Lactate Dehydrogenase 266 H C-Reactive Protein Total Protein 4.7 L Albumin 2.4 L Globulin Albumin/Globulin Ratio Triglycerides 179 H Amylase Lipase Beta-Hydroxybutyrate 05/08/16 05/08/16 05/08/16 10:12 10:12 08:04 WBC RBC Hgb Hct MCV Gran % Lymph % (Auto) Gran # Lymph # Seg Neutrophils % Lymphocytes % ESR VBG Lactic Acid 2.4 H Sodium Potassium Chloride Carbon Dioxide Anion Gap BUN Glucose Uric Acid Calcium Phosphorus GGT AST Alkaline Phosphatase Lactate Dehydrogenase C-Reactive Protein Total Protein Albumin Globulin Albumin/Globulin Ratio Triglycerides Amylase 140 H Lipase 251 H Beta-Hydroxybutyrate 3.28 H 05/08/16 05/08/16 05/08/16 08:04 08:04 04:30 WBC 15.7 H RBC Hgb 11.3 L 10.9 L Hct 34.4 L 33.3 L MCV Gran % Lymph % (Auto) Gran # Lymph # Seg Neutrophils % 88 H Lymphocytes % 9 L ESR VBG Lactic Acid Sodium Potassium Chloride Carbon Dioxide 19 L Anion Gap 25.0 H BUN 37 H Glucose 253 H Uric Acid 10.9 H Calcium Phosphorus GGT 53 H AST 86 H Alkaline Phosphatase 151 H Lactate Dehydrogenase 337 H C-Reactive Protein Total Protein Albumin Globulin 3.9 H Albumin/Globulin Ratio 0.9 L Triglycerides 248 H Amylase Lipase Beta-Hydroxybutyrate Meds: Medications Bisacodyl (Dulcolax) 10 mg DE Q2-3DAYS PRN PRN Reason: Constipation Dextrose (Dextrose 50%) 0 ml IV UD PRN PRN Reason: Hypoglycemia Diagnostic Test (Pha) (Accu-Chek) 1 each FS Q6 [facility] Last Admin: 05/10/16 05:12 Dose: 1 each Diphenhydramine HCl (Benadryl) 12.5 mg IV Q6HP PRN PRN Reason: Allergic Symptoms Docusate Sodium (Colace) 100 mg PO BID [facility] Last Admin: 05/10/16 11:56 Dose: Not Given Fentanyl (Duragesic) 50 mcg TOPICAL Q72H [facility] Last Admin: 05/10/16 12:09 Dose: 50 mcg Fluoxetine HCl (Prozac) 40 mg PO DAILY [facility] Last Admin: 05/10/16 12:10 Dose: 40 mg Gabapentin (Neurontin) 100 mg PO TID [facility] Last Admin: 05/10/16 12:10 Dose: 100 mg Gemfibrozil (Lopid) 600 mg PO BIDAC [facility] Last Admin: 05/10/16 06:58 Dose: 600 mg Heparin Sodium (Porcine) (Heparin) 5,000 unit SQ Q12 [facility] Last Admin: 05/10/16 12:09 Dose: 5,000 unit Hydromorphone HCl (Dilaudid) 0 mg IV Q2HP PRN PRN Reason: Pain Last Admin: 05/10/16 10:10 Dose: 1 mg Sodium Chloride (Sodium Chloride 0.9%) 1,000 mls @ 125 mls/hr IV .Q8H [facility] Last Admin: 05/10/16 06:58 Dose: 125 mls/hr Acetaminophen (Ofirmev) 1,000 mg in 100 mls @ 200 mls/hr IV Q6HP PRN PRN Reason: PAIN/FEVER > 101 Last Infusion: 05/09/16 16:56 Dose: 0 mls/hr Piperacillin Sod/Tazobactam (Sod 3.375 gm/ Dextrose) 50 mls @ 100 mls/hr IV Q6H [facility] Last Admin: 05/10/16 12:12 Dose: 100 mls/hr Vancomycin HCl 1,000 mg/ (Sodium Chloride) 250 mls @ 250 mls/hr IV Q24H [facility] Last Infusion: 05/09/16 18:43 Dose: Infused Sodium Chloride (Sodium Chloride 0.9%) 250 mls @ 20 mls/hr IV .[id number] [facility] Last Admin: 05/10/16 05:29 Dose: 20 mls/hr Norepinephrine Bitartrate 16 (mg/ Sodium Chloride) 250 mls @ 9.37 mls/hr IV Q24H [facility]; 10 MCG/MIN PRN Reason: Protocol Last Admin: 05/10/16 10:24 Dose: Not Given Sodium Chloride (Sodium Chloride 0.9%) 250 mls @ 20 mls/hr IV .[id number] [facility] Last Admin: 05/10/16 05:06 Dose: Not Given Insulin Human Lispro (Humalog) 0 unit SQ Q6 [facility] PRN Reason: Protocol Last Admin: 05/10/16 05:15 Dose: 2 unit Levothyroxine Sodium (Synthroid) 150 mcg PO ACB [facility] Last Admin: 05/10/16 06:58 Dose: 150 mcg Lorazepam (Ativan) 1 mg PO TIDP PRN PRN Reason: Anxiety Last Admin: 05/09/16 20:34 Dose: 1 mg Magnesium Hydroxide (Milk Of Magnesia) 30 ml PO DAILYP PRN PRN Reason: Constipation Methocarbamol (Robaxin) 750 mg PO Q6HP PRN PRN Reason: Muscle Spasm Last Admin: 05/10/16 07:22 Dose: 750 mg Methylprednisolone Sodium Succinate (Solu-Medrol) 40 mg IV Q12 [facility] Last Admin: 05/10/16 10:32 Dose: 40 mg Ondansetron HCl (Zofran Odt) 4 mg SL Q4HP PRN PRN Reason: Nausea And Vomiting Oxycodone HCl (Roxicodone) 0 mg PO Q4HP PRN PRN Reason: Pain Last Admin: 05/10/16 07:22 Dose: 10 mg Pantoprazole Sodium (Protonix) 40 mg IV BIDAC [facility] Last Admin: 05/10/16 06:58 Dose: 40 mg Sodium Biphosphate/Sodium Phosphate (Fleets Adult) 1 dose DE Q3-4DAYS PRN PRN Reason: Constipation Throat Lozenges (Cepacol) 1 lozenge PO PRN PRN PRN Reason: Sore Throat Tizanidine HCl (Zanaflex) 4 mg PO Q6H [facility] Last Admin: 05/10/16 12:11 Dose: 4 mg Vancomycin HCl (Vancomycin Per Pharmacy) 1 order IV UD [facility] Zolpidem Tartrate (Ambien) 5 mg PO HSP PRN PRN Reason: Insomnia Medical - PN: A/P - Time Spent With Patient Total time spent is greater than 50% in coordination of care (as documented) at patient's floor/unit and/or counseling patient: (1) Paraplegia Status: Acute Assessment and plan: s/p decompression surgery management as per ortho Current Visit: Yes (2) Diabetes mellitus Status: Acute Assessment and plan: glucose level was low yesterday resume diet, FS ACHS sliding scale insulin for now expect improvign glucose as we are weaning off steroids as per ortho reccs. Current Visit: Yes (3) Hypertension Status: Acute Assessment and plan: BP low due to septic shock, and low normal bp hold all bp meds Current Visit: Yes (4) Anxiety Status: Acute Assessment and plan: stable on ssri. Current Visit: Yes (5) Urinary retention Status: Acute Assessment and plan: s/p stahl placement etiology of retention? medications likely vs spinal in origin. Current Visit: Yes (6) Pneumonia Status: Acute Assessment and plan: HCAP vs Aspirational PNA, now in early ARDS, on bipap prn on IV vancomycin and Zosyn continue same cultures negative so far Current Visit: Yes (7) Septic shock Status: Acute Assessment and plan: Due to pna/ pancreatitis IV fluids, lactate normal bp stable but patient is tenous Current Visit: Yes (8) Diarrhea Status: Acute Assessment and plan: cdiff negative. Current Visit: Yes (9) Acute pancreatitis Status: Acute Assessment and plan: etiology of pancreatitis uncertain lipase improved significantly resume diet no abdominal pain advace to regular if tolerated well. Current Visit: Yes
[2016-05-10] MEDS: IPRATROPIUM/ALBUTEROL 3 ML AMPUL.NEB NEB SCH ×2 (13:36→18:27)
[2016-05-10] MEDS: LORazepam 1 MG TABLET PO PRN (18:38)
[2016-05-10] MEDS ORDERED: FUROSEMIDE 20 MG/2 ML VIAL IV ONE (22:01)
[2016-05-11] MEDS: PIPERACILLIN SODIUM/TAZOBACTAM 3.375 GM in DEXTROSE 5% IN WATER 50 ML IV SCH ×5 (00:39→23:35)
[2016-05-11] MEDS: INSULIN LISPRO 1 UNIT/0.01 ML UNIT SQ SCH ×4 (00:50→21:19)
[2016-05-11] MEDS: oxyCODONE HCL 5 MG TABLET PO PRN ×4 (01:18→20:03)
[2016-05-11] MEDS: IPRATROPIUM/ALBUTEROL 3 ML AMPUL.NEB NEB SCH ×4 (01:22→19:10)
[2016-05-11] MEDS: LORazepam 2 MG/ML VIAL IV PRN (03:27)
[2016-05-11] MEDS: tiZANidine 4 MG TABLET PO SCH ×4 (03:34→21:06)
[2016-05-11] MEDS: 0.9 % SODIUM CHLORIDE 250 ML IV SCH ×2 (03:35)
[2016-05-11] MEDS: HYDROmorphone 2 MG/ML SYRINGE IV PRN (04:34)
[2016-05-11 05:38] LABS: Basophils # (Auto) 0 K/mcL (0.0-0.3); Basophils % (Auto) 0.1 % (0.0-2.0); Eosinophils # (Auto) 0 K/mcL (0.0-0.7); Eosinophils % (Auto) 0.4 % (0.0-7.0); Granulocytes % (Auto) 86.8 % (38.0-78.0); Lymphocytes # (Auto) 0.4 K/mcL (1.5-4.8); Lymphocytes % (Auto) 8.1 % (15.5-49.0); Mean Cell Volume 82.2 fL (80.0-100.0); Mean Corpuscular HGB Conc 32.8 g/dL (31.0-36.0); Monocytes # (Auto) 0.2 K/mcL (0.1-0.9); Monocytes % (Auto) 4.6 % (1.0-9.0); Platelet Count 140 K/mcL (140-440); RBC 3.15 M/mcL (4.00-5.20); Red Cell Distribution Width 14.1 % (11.5-14.5)
[2016-05-11 06:09] LABS: ALT/SGPT 33 U/l (0-40); Albumin/Globulin Ratio 1.2 (1.0-2.3); Alkaline Phosphatase 106 U/L (39-117); Amylase 48 U/L (28-100); Bilirubin,Direct 0.2 mg/dL (0.0-0.3); Blood Urea Nitrogen 16 mg/dl (8-23); Gamma Glutamyl Transpeptidase 51 U/L (5-36); Lipase 42 U/L (7-60); Magnesium 1.9 mg/dL (1.6-2.5); Uric Acid 4.8 mg/dL (2.5-8.0)
[2016-05-11] MEDS ORDERED: NOREPINEPHRINE BITARTRATE 16 MG in 0.9 % SODIUM CHLORIDE 234 ML IV PRN (06:57)
[2016-05-11] MEDS ORDERED: FUROSEMIDE 20 MG/2 ML VIAL IV ONE (07:27)
[2016-05-11] MEDS: PANTOPRAZOLE 40 MG VIAL IV SCH ×2 (07:32→18:01)
[2016-05-11] MEDS: LEVOTHYROXINE 150 MCG TABLET PO SCH (07:33)
[2016-05-11] MEDS: GEMFIBROZIL 600 MG TABLET PO SCH ×2 (07:33→18:01)
[2016-05-11] MEDS: METHOCARBAMOL 750 MG TABLET PO PRN ×3 (07:33→20:02)
--- NOTE | 2016-05-11 07:42 | Orthopedic Progress Note ---
Subjective Patient information: Note initiated : 05/11/16 at 7:40 am Service Date, if different from initiated Date: [] Patient: Paula Mcfarlane 70 y/o F admitted on 05/06/16 for Lumbar Decompression. Chief Complaint: [] Principal diagnosis: cauda equina syndrome Interval history: difficult time getting comfortable, but pain well controlled Objective Vital signs: Vital Signs Temp Pulse Pulse Resp BP Pulse Ox 05/11/16 07:08 109 H 26 H 96 05/11/16 07:04 110 H 30 H 96 05/11/16 05:59 24 147/62 98 05/11/16 05:00 16 146/78 99 05/11/16 04:00 97.5 F L 23 137/72 97 05/11/16 03:00 30 H 123/62 91 05/11/16 02:00 24 127/64 96 05/11/16 01:57 97 05/11/16 01:00 28 H 121/63 94 05/11/16 00:00 97.8 F 88 19 138/61 96 05/10/16 23:00 22 96/55 91 05/10/16 22:00 22 86/50 96 05/10/16 21:29 97 H 27 H 95 05/10/16 21:00 26 H 135/73 96 05/10/16 20:00 96.4 F L 25 H 123/62 98 05/10/16 18:36 104 H 27 H 05/10/16 18:20 102 H 27 H 95 05/10/16 16:00 97.4 F L 26 H 109/65 98 05/10/16 15:03 85 26 H 109/64 98 05/10/16 14:00 97 05/10/16 12:00 96.5 F L 38 H 128/64 100 05/10/16 11:09 98 H 24 115/51 98 05/10/16 10:30 90 101 H 99 H 127/69 99 05/10/16 10:24 97 H 25 H 99 05/10/16 10:00 113 H 17 172/105 82 L 05/10/16 09:00 91 H 17 122/70 96 05/10/16 08:00 97.3 F L 73 16 109/70 96 Intake and Output 02/20/17 02/21/17 02/21/17 21:59 05:59 13:59 Intake Total 600 / 600 500 / 500 Output Total 1350 / 1350 2150 / 2150 Balance -750 / -750 -1650 / -1650 Intake: IV 600 / 600 100 / 100 Sodium Chloride 0.9% 250 250 / 250 ml @ 20 mls/hr IV . [id number] [facility] Rx#:[id number] Dextrose 5% in Water 50 100 / 100 100 / 100 ml @ 100 mls/hr IV Q6H [facility] with Zosyn 3.375 gm Rx#:[id number] Sodium Chloride 0.9% 250 250 / 250 ml @ 250 mls/hr IV Q24H [facility]IER with Vancomycin 1,000 mg Rx#:[id number] Oral 400 / 400 Output: Urine Catheter Amount 1350 / 1350 2150 / 2150 Other: Weight 152 lb 11.2 oz Intake & Output: Intake & Output 05/10/16 05/11/16 05/11/16 21:59 05:59 13:59 Intake Total 600 / 600 500 / 500 Output Total 1350 / 1350 2150 / 2150 Balance -750 / -750 -1650 / -1650 Weight 152 lb 11.2 oz Intake: IV 600 / 600 100 / 100 Sodium Chloride 0.9% 250 250 / 250 ml @ 20 mls/hr IV . [id number] [facility] Rx#:[id number] Dextrose 5% in Water 50 100 / 100 100 / 100 ml @ 100 mls/hr IV Q6H [facility] with Zosyn 3.375 gm Rx#:[id number] Sodium Chloride 0.9% 250 250 / 250 ml @ 250 mls/hr IV Q24H [facility]IER with Vancomycin 1,000 mg Rx#:[id number] Oral 400 / 400 Output: Urine Catheter Amount 1350 / 1350 2150 / 2150 Dressing: Yes clean, Yes dry Additional Comments: neuro function shows noted improvement. still remains impaired. - Labs CBC & BMP: 05/11/16 04:05 05/11/16 04:10 Labs: Orthopedic Labs 05/06/16 12:46 POC PT 13.7 POC INR 1.2 05/11/16 05/10/16 05/09/16 04:05 03:45 03:49 Hgb 8.5 L 8.9 L 9.0 L Hct 25.9 L 27.3 L 27.8 L 05/09/16 05/08/16 05/08/16 00:58 23:54 08:04 Hgb 8.1 L 7.5 L 11.3 L Hct 24.2 L 22.0 L 34.4 L 05/08/16 05/07/16 05/06/16 04:30 04:15 12:46 Hgb 10.9 L 10.8 L 11.1 L Hct 33.3 L 33.2 L 33.9 L Assessment and Plan (1) Paraplegia will taper steroid tomorrow. continue pain management. will need inpatient rehab will order tlso and begin to mobilize tlso avail, spoke with pt and they will mobilize in brace today. continue to mobilize with therapy. dressing change today. Status: Acute
[2016-05-11] MEDS: POTASSIUM CHLORIDE 40 MEQ in DEXTROSE 5% IN WATER 500 ML IV ONE ×2 (08:53→08:54)
[2016-05-11] MEDS: DOCUSATE SODIUM 100 MG CAPSULE PO SCH ×2 (10:24→19:31)
[2016-05-11] MEDS: HEPARIN 5,000 UNIT/ML VIAL SQ SCH ×2 (10:33→21:06)
[2016-05-11] MEDS: methylPREDNISolone SOD SUCC 40 MG/ML VIAL IV SCH (10:33)
[2016-05-11] MEDS: GABAPENTIN 100 MG CAPSULE PO SCH ×3 (10:34→21:06)
[2016-05-11] MEDS: VANCOMYCIN 1,000 MG in 0.9 % SODIUM CHLORIDE 250 ML IV SCH (10:34)
[2016-05-11] MEDS: FLUoxetine HCL 20 MG CAPSULE PO SCH (10:34)
--- NOTE | 2016-05-11 11:02 | Internal Med Progress Note ---
Medical - PN: Subj Patient information: Note initiated : 05/11/16 at 10:58 am Service Date, if different from initiated Date: [] Patient: Paula Mcfarlane 70 y/o F admitted on 05/06/16 for Lumbar Decompression. Chief Complaint: [] Interval history: The patient seen examined, pt needed bipap all night, she had a rough night in terms of pain and being comfortable in bed not needing pressors, and bp is stable The has back pain, but denies any other issues. Tolerating bipap well. presently on 01/11 labs reviewed, lipase normal, hb at 8.5, slow drop, microbiology neg. Pertinent ROS: Denies headache, dizziness Denies chest pain, palpitations cough and shortness of breath present. Denies abdominal pain, nausea or vomiting. - Constitutional Vitals: Vital Signs Temp Pulse Resp BP Pulse Ox 98.4 F 107 H 25 H 168/87 91 05/11/16 08:00 05/11/16 09:37 05/11/16 09:37 05/11/16 08:00 05/11/16 09:37 Period Temp Pulse Resp BP Sys/Roldan Pulse Ox Last 24 Hr 96.4 F-98.4 F 85-111 16-38 86-168/50-87 91-100 Intake and Output 05/10/16 05/11/16 05/11/16 21:59 05:59 13:59 Intake Total 600 / 600 500 / 500 2 / 2 Output Total 1350 / 1350 2150 / 2150 Balance -750 / -750 -1650 / -1650 2 / 2 Weight 152 lb 11.2 oz Intake & Output: Intake & Output 05/10/16 05/11/16 05/11/16 21:59 05:59 13:59 Intake Total 600 / 600 500 / 500 2 / 2 Output Total 1350 / 1350 2150 / 2150 Balance -750 / -750 -1650 / -1650 2 / 2 Weight 152 lb 11.2 oz Intake: IV 600 / 600 100 / 100 2 / 2 Sodium Chloride 0.9% 250 250 / 250 ml @ 20 mls/hr IV . [id number] [facility] Rx#:[id number] Dextrose 5% in Water 50 100 / 100 100 / 100 ml @ 100 mls/hr IV Q6H DIDIER with Zosyn 3.375 gm Rx#:[id number] Dextrose 5% in Water 500 2 / 2 ml @ 130 mls/hr IV ONCE ONE with Potassium Chloride 40 Meq Rx#: [id number] Sodium Chloride 0.9% 250 250 / 250 ml @ 250 mls/hr IV Q24H DIDIER with Vancomycin 1,000 mg Rx#:[id number] Oral 400 / 400 Output: Urine Catheter Amount 1350 / 1350 2150 / 2150 Exam: Constitutional; Afebrile, cooperative, alert, not in distress. Eyes- No icterus, Pupils equal, reactive, No periorbital swelling Ears- Ext ear normal, hearing normal to conversation. Neck- Midline trachea, supple Respiratory system: Air Entry equal on both sides, yimi rhonchi. CVS- Rate rhythm regular, S1,S2 heard, no gallop, no rub. tachycardic, Abdomen- Soft nontender abdomen, no organomegaly, no tenderness, no guarding or rigidity, [employer]- AOOx3, moving all extremities, lower extremity weakness improving Medical - PN: Obj Da - Labs CBC & Chem 7: 05/11/16 04:05 05/11/16 04:10 Labs: Abnormal Lab Results 05/11/16 05/11/16 05/10/16 04:10 04:05 03:45 WBC RBC 3.15 L Hgb 8.5 L Hct 25.9 L MCV Gran % 86.8 H Lymph % (Auto) 8.1 L Gran # Lymph # 0.4 L ESR VBG Lactic Acid Sodium 148 H Potassium 3.2 L Chloride 117 H Carbon Dioxide 18 L 18 L BUN Glucose 227 H 157 H Uric Acid Calcium 8.5 L Phosphorus 2.0 L 2.5 L GGT 51 H 48 H AST 48 H 66 H Lactate Dehydrogenase 295 H 293 H C-Reactive Protein 6.3 H Total Protein 5.6 L Albumin 3.0 L 2.9 L Triglycerides 350 H 248 H Amylase 142 H Lipase 100 H Beta-Hydroxybutyrate 05/10/16 05/09/16 05/09/16 03:45 03:49 03:49 WBC 12.9 H RBC 3.32 L 3.36 L Hgb 8.9 L 9.0 L Hct 27.3 L 27.8 L MCV Gran % 90.3 H 82.3 H Lymph % (Auto) 7.0 L 12.2 L Gran # 10.6 H Lymph # 0.4 L ESR 83 H VBG Lactic Acid Sodium Potassium Chloride 112 H Carbon Dioxide 20 L BUN 30 H Glucose 201 H Uric Acid Calcium 7.7 L Phosphorus 2.1 L GGT 48 H AST 98 H Lactate Dehydrogenase 302 H C-Reactive Protein Total Protein 5.7 L Albumin 2.9 L Triglycerides 231 H Amylase 603 H Lipase 1894 H Beta-Hydroxybutyrate 05/09/16 05/09/16 05/08/16 00:58 00:58 23:54 WBC RBC 3.04 L Hgb 8.1 L Hct 24.2 L MCV 79.5 L Gran % Lymph % (Auto) Gran # Lymph # 1.2 L ESR VBG Lactic Acid 2.4 H Sodium Potassium 2.7 L* Chloride 112 H Carbon Dioxide 21 L BUN 34 H Glucose 62 L Uric Acid Calcium 7.0 L Phosphorus GGT AST Lactate Dehydrogenase C-Reactive Protein Total Protein Albumin Triglycerides Amylase Lipase Beta-Hydroxybutyrate 05/08/16 05/08/16 05/08/16 23:54 23:54 10:12 WBC RBC 2.78 L Hgb 7.5 L Hct 22.0 L MCV 79.2 L Gran % Lymph % (Auto) Gran # Lymph # 1.4 L ESR VBG Lactic Acid Sodium Potassium 2.7 L* Chloride Carbon Dioxide BUN 37 H Glucose Uric Acid 9.2 H Calcium 7.5 L Phosphorus 2.5 L GGT 39 H AST 83 H Lactate Dehydrogenase 266 H C-Reactive Protein Total Protein 4.7 L Albumin 2.4 L Triglycerides 179 H Amylase Lipase Beta-Hydroxybutyrate 3.28 H Meds: Medications Albuterol/Ipratropium (Duoneb) 3 ml NEB Q6HRT [facility] Last Admin: 05/11/16 07:02 Dose: 3 ml Bisacodyl (Dulcolax) 10 mg VT Q2-3DAYS PRN PRN Reason: Constipation Dextrose (Dextrose 50%) 0 ml IV UD PRN PRN Reason: Hypoglycemia Diagnostic Test (Pha) (Accu-Chek) 1 each FS Q6 [facility] Last Admin: 05/11/16 05:34 Dose: 1 each Diphenhydramine HCl (Benadryl) 12.5 mg IV Q6HP PRN PRN Reason: Allergic Symptoms Docusate Sodium (Colace) 100 mg PO BID [facility] Last Admin: 02/21/17 10:24 Dose: Not Given Fentanyl (Duragesic) 50 mcg TOPICAL Q72H [facility] Last Admin: 05/10/16 12:09 Dose: 50 mcg Fluoxetine HCl (Prozac) 40 mg PO DAILY [facility] Last Admin: 05/11/16 10:34 Dose: 40 mg Gabapentin (Neurontin) 100 mg PO TID [facility] Last Admin: 05/11/16 10:34 Dose: 100 mg Gemfibrozil (Lopid) 600 mg PO BIDAC [facility] Last Admin: 05/11/16 07:33 Dose: 600 mg Heparin Sodium (Porcine) (Heparin) 5,000 unit SQ Q12 [facility] Last Admin: 05/11/16 10:33 Dose: 5,000 unit Hydromorphone HCl (Dilaudid) 0 mg IV Q2HP PRN PRN Reason: Pain Last Admin: 05/11/16 04:34 Dose: 1 mg Acetaminophen (Ofirmev) 1,000 mg in 100 mls @ 200 mls/hr IV Q6HP PRN PRN Reason: PAIN/FEVER > 101 Last Infusion: 05/09/16 16:56 Dose: 0 mls/hr Piperacillin Sod/Tazobactam (Sod 3.375 gm/ Dextrose) 50 mls @ 100 mls/hr IV Q6H [facility] Last Admin: 05/11/16 10:34 Dose: 100 mls/hr Vancomycin HCl 1,000 mg/ (Sodium Chloride) 250 mls @ 250 mls/hr IV Q24H [facility] Last Admin: 05/11/16 10:34 Dose: 250 mls/hr Sodium Chloride (Sodium Chloride 0.9%) 250 mls @ 20 mls/hr IV .[id number] [facility] Last Admin: 05/11/16 03:35 Dose: Not Given Sodium Chloride (Sodium Chloride 0.9%) 250 mls @ 20 mls/hr IV .[id number] [facility] Last Admin: 05/11/16 03:35 Dose: Not Given Norepinephrine Bitartrate 16 (mg/ Sodium Chloride) 250 mls @ 9.37 mls/hr IV Q24HP PRN; Protocol; 10 MCG/MIN PRN Reason: TITRATE TO KEEP MAP > 60 Potassium Chloride 40 meq/ (Dextrose) 520 mls @ 130 mls/hr IV ONCE ONE Stop: 05/11/16 11:59 Last Admin: 05/11/16 08:54 Dose: 130 mls/hr Insulin Human Lispro (Humalog) 0 unit SQ Q6 [facility] PRN Reason: Protocol Last Admin: 05/11/16 05:40 Dose: 6 unit Levothyroxine Sodium (Synthroid) 150 mcg PO ACB [facility] Last Admin: 05/11/16 07:33 Dose: 150 mcg Lorazepam (Ativan) 1 mg PO TIDP PRN PRN Reason: Anxiety Last Admin: 05/10/16 18:38 Dose: 1 mg Lorazepam (Ativan) 0.5 mg IV TID PRN PRN Reason: ANXIETY/SEDATION Last Admin: 05/11/16 03:27 Dose: 0.5 mg Magnesium Hydroxide (Milk Of Magnesia) 30 ml PO DAILYP PRN PRN Reason: Constipation Methocarbamol (Robaxin) 750 mg PO Q6HP PRN PRN Reason: Muscle Spasm Last Admin: 05/11/16 07:33 Dose: 750 mg Methylprednisolone Sodium Succinate (Solu-Medrol) 40 mg IV DAILY [facility] Last Admin: 05/11/16 10:33 Dose: 40 mg Ondansetron HCl (Zofran Odt) 4 mg SL Q4HP PRN PRN Reason: Nausea And Vomiting Oxycodone HCl (Roxicodone) 0 mg PO Q4HP PRN PRN Reason: Pain Last Admin: 05/11/16 07:33 Dose: 10 mg Pantoprazole Sodium (Protonix) 40 mg IV BIDAC [facility] Last Admin: 05/11/16 07:32 Dose: 40 mg Sodium Biphosphate/Sodium Phosphate (Fleets Adult) 1 dose VT Q3-4DAYS PRN PRN Reason: Constipation Throat Lozenges (Cepacol) 1 lozenge PO PRN PRN PRN Reason: Sore Throat Tizanidine HCl (Zanaflex) 4 mg PO Q6H [facility] Last Admin: 05/11/16 10:34 Dose: 4 mg Vancomycin HCl (Vancomycin Per Pharmacy) 1 order IV UD [facility] Zolpidem Tartrate (Ambien) 5 mg PO HSP PRN PRN Reason: Insomnia Medical - PN: A/P - Time Spent With Patient Total time spent is greater than 50% in coordination of care (as documented) at patient's floor/unit and/or counseling patient: (1) Paraplegia Status: Acute Assessment and plan: s/p decompression surgery management as per ortho wean off steroids Current Visit: Yes (2) Diabetes mellitus Status: Acute Assessment and plan: glucose level was low yesterday resume diet, FS ACHS sliding scale insulin for now expect improving glucose as we are weaning off steroids as per ortho reccs. Current Visit: Yes (3) Hypertension Status: Acute Assessment and plan: BP low due to septic shock, but has improved now, hold all bp meds for now, planning to diuresis the patient to improve oxygenation. Current Visit: Yes (4) Anxiety Status: Acute Assessment and plan: stable on ssri. prn ativan Current Visit: Yes (5) Urinary retention Status: Acute Assessment and plan: s/p stahl placement etiology of retention? medications likely vs spinal in origin. Current Visit: Yes (6) Pneumonia Status: Acute Assessment and plan: HCAP vs Aspirational PNA, now in early ARDS, on bipap 40 % fio2 14/8 on IV vancomycin and Zosyn continue same cultures negative so far repeat x ray chest today Current Visit: Yes (7) Septic shock Status: Acute Assessment and plan: Due to pna/ pancreatitis resolved. lactate normal bp stable Current Visit: Yes (8) Diarrhea Status: Acute Assessment and plan: cdiff negative. resolved. due to stool softners Current Visit: Yes (9) Acute pancreatitis Status: Acute Assessment and plan: etiology of pancreatitis uncertain, lipase now normal advance to regular diet, carb controlled Current Visit: Yes - Narrative A/P Narrative: dvt hep sq code full
--- NOTE | 2016-05-11 12:21 | XRay Report ---
CLINICAL INFORMATION: ARDS COMPARISON: 05/10/2016 portable chest FINDINGS: The heart is mildly enlarged, but unchanged. Mild mediastinal widening noted. Diffuse alveolar infiltrates are again noted with increasing consolidation in the right upper lung. There has been less significant progression in both lower and left upper lungs. Small bilateral pleural effusions are noted IMPRESSION: Marked interval worsening in diffuse bilateral alveolar infiltrates now with dense consolidation in the right upper lung. Findings are compatible with the clinical diagnosis of ARDS Interpreted and Authenticated by: Juan Brennan 05/11/16
[2016-05-11] MEDS: LORazepam 1 MG TABLET PO PRN (20:02)
[2016-05-12] MEDS: IPRATROPIUM/ALBUTEROL 3 ML AMPUL.NEB NEB SCH ×4 (01:18→18:47)
[2016-05-12] MEDS: tiZANidine 4 MG TABLET PO SCH ×4 (03:05→21:05)
[2016-05-12] MEDS: METHOCARBAMOL 750 MG TABLET PO PRN (04:22)
[2016-05-12] MEDS: oxyCODONE HCL 5 MG TABLET PO PRN ×5 (04:24→20:56)
[2016-05-12] MEDS: PIPERACILLIN SODIUM/TAZOBACTAM 3.375 GM in DEXTROSE 5% IN WATER 50 ML IV SCH ×3 (05:05→18:29)
[2016-05-12 05:54] LABS: Basophils # (Auto) 0 K/mcL (0.0-0.3); Basophils % (Auto) 0.2 % (0.0-2.0); Eosinophils # (Auto) 0.1 K/mcL (0.0-0.7); Eosinophils % (Auto) 1.2 % (0.0-7.0); Granulocytes % (Auto) 76.3 % (38.0-78.0); Lymphocytes # (Auto) 0.8 K/mcL (1.5-4.8); Lymphocytes % (Auto) 17.2 % (15.5-49.0); Mean Cell Volume 81.3 fL (80.0-100.0); Mean Corpuscular HGB Conc 33.1 g/dL (31.0-36.0); Mean Corpuscular Hemoglobin 26.9 pg (26.0-34.0); Monocytes # (Auto) 0.3 K/mcL (0.1-0.9); Monocytes % (Auto) 5.1 % (1.0-9.0); Platelet Count 165 K/mcL (140-440); RBC 3.23 M/mcL (4.00-5.20); Red Cell Distribution Width 14.5 % (11.5-14.5)
[2016-05-12 06:04] LABS: ALT/SGPT 27 U/l (0-40); Albumin 2.9 gm/dL (3.2-5.2); Albumin/Globulin Ratio 1.2 (1.0-2.3); Alkaline Phosphatase 95 U/L (39-117); Amylase 52 U/L (28-100); Bilirubin,Direct 0.2 mg/dL (0.0-0.3); Blood Urea Nitrogen 12 mg/dl (8-23); Gamma Glutamyl Transpeptidase 50 U/L (5-36); Lipase 77 U/L (7-60); Magnesium 1.9 mg/dL (1.6-2.5); Phosphorous 1.8 mg/dL (2.7-4.5); Uric Acid 3.7 mg/dL (2.5-8.0)
[2016-05-12] MEDS: LORazepam 2 MG/ML VIAL IV PRN ×2 (06:43→19:25)
[2016-05-12] MEDS: ACETAMINOPHEN 1,000 MG/100 ML BOTTLE IV PRN ×2 (08:26→21:00)
[2016-05-12] MEDS: PANTOPRAZOLE 40 MG VIAL IV SCH ×2 (08:30→18:29)
[2016-05-12] MEDS: GABAPENTIN 100 MG CAPSULE PO SCH ×3 (08:31→20:57)
[2016-05-12] MEDS: FLUoxetine HCL 20 MG CAPSULE PO SCH (08:31)
[2016-05-12] MEDS: HEPARIN 5,000 UNIT/ML VIAL SQ SCH ×2 (08:31→20:59)
[2016-05-12] MEDS: LEVOTHYROXINE 150 MCG TABLET PO SCH (08:31)
[2016-05-12] MEDS: DOCUSATE SODIUM 100 MG CAPSULE PO SCH ×2 (08:31→21:04)
[2016-05-12] MEDS: methylPREDNISolone SOD SUCC 40 MG/ML VIAL IV SCH (08:32)
[2016-05-12] MEDS: GEMFIBROZIL 600 MG TABLET PO SCH ×2 (08:34→18:29)
[2016-05-12] MEDS: INSULIN LISPRO 1 UNIT/0.01 ML UNIT SQ SCH ×4 (09:19→20:58)
[2016-05-12] MEDS ORDERED: POTASSIUM CHLORIDE 20 MEQ TABLET PO ONE (10:46)
[2016-05-12] MEDS ORDERED: FUROSEMIDE 20 MG/2 ML VIAL IV ONE (10:47)
[2016-05-12] MEDS: NEUTRA PHOS 1 PACKET PO SCH ×2 (12:27→21:00)
[2016-05-12] MEDS: VANCOMYCIN 1,000 MG in 0.9 % SODIUM CHLORIDE 250 ML IV SCH (13:13)
--- NOTE | 2016-05-12 14:32 | Internal Med Progress Note ---
Medical - PN: Subj Patient information: Note initiated : 05/12/16 at 2:29 pm Service Date, if different from initiated Date: [] Patient: Paula Mcfarlane 70 y/o F admitted on 05/06/16 for Lumbar Decompression. Chief Complaint: [] Interval history: 05/06-Ms. Mcfarlane is a 70 year old female admitted to Surgery (neurosurgery for spine decompression and fusion). The patient history obtained from chart review. On my eval the patient was in discomfort from post op pain and did not give any medical history. The patient seems has been suffering from lower extremity weakness, s/p fall and vertebral fracture in T12 region. This was fixed by a vertebroplasty a couple of days ago. The patient after surgery had significant back pain again and was seen in the pain clinic, the patient underwent a CT which revewaled significant narrowing of the upper aspect of the t12 vertebae. The patient also had new neurological symptoms, weakness in yimi lower extremities and was therefore taken to the OR today. S/p surgery. Medicine was consulted for management of chr medical conditions 05/12- patient has been gradually improving on antibiotics for aspiration pneumonia. Ongoing diuresis for anasarca. On BiPAP last 24 hours. Currently tolerating off BiPAP on 4-1/2 L oxygen. at bedside. Patient appears less anxious. Good urine output. No overnight fever chills nausea vomiting or concerns per staff - Constitutional Vitals: Vital Signs Temp Pulse Resp BP Pulse Ox 96.7 F L 96 H 25 H 124/61 96 05/12/16 12:00 05/12/16 13:29 05/12/16 13:29 05/12/16 13:01 05/12/16 13:01 Period Temp Pulse Resp BP Sys/Roldan Pulse Ox Last 24 Hr 96.7 F-98.8 F 71-120 20-40 87-159/47-87 84-100 Intake and Output 05/12/16 05/12/16 05/12/16 05:59 13:59 21:59 Intake Total 770 / 770 200 / 200 Output Total 1225 / 1225 1117 / 1117 1999 Balance -455 / -455 -917 / -917 -1999 Weight 156 lb 3.2 oz Patient Weight 05/13/16 05:59 Weight 156 lb 3.2 oz Intake & Output: Intake & Output 05/12/16 05/12/16 05/12/16 05:59 13:59 21:59 Intake Total 770 / 770 200 / 200 Output Total 1225 / 1225 1117 / 1117 1999 Balance -455 / -455 -917 / -917 -1999 Weight 156 lb 3.2 oz Intake: IV 50 / 50 200 / 200 Dextrose 5% in Water 50 50 / 50 100 / 100 ml @ 100 mls/hr IV Q6H [facility] with Zosyn 3.375 gm Rx#:[id number] Oral 720 / 720 Output: Urine Catheter Amount 1225 / 1225 1117 / 1117 1999 General appearance: cooperative, no acute distress Exam: alert oriented minimally labored breathing minimally anxious No telemetry events Nondistended abdomen foleys draining clear urine Medical - PN: Obj Da - Labs CBC & Chem 7: 05/12/16 04:00 05/12/16 04:00 Labs: Abnormal Lab Results 05/12/16 05/12/16 05/11/16 04:00 04:00 04:10 RBC 3.23 L Hgb 8.7 L Hct 26.3 L Gran % Lymph % (Auto) Lymph # 0.8 L ESR Sodium Potassium 3.2 L Chloride Carbon Dioxide 18 L Glucose 188 H 227 H Calcium 8.4 L Phosphorus 1.8 L 2.0 L GGT 50 H 51 H AST 48 H Lactate Dehydrogenase 274 H 295 H C-Reactive Protein Total Protein 5.3 L 5.6 L Albumin 2.9 L 3.0 L Triglycerides 197 H 350 H Amylase Lipase 77 H 05/11/16 05/10/16 05/10/16 04:05 03:45 03:45 RBC 3.15 L 3.32 L Hgb 8.5 L 8.9 L Hct 25.9 L 27.3 L Gran % 86.8 H 90.3 H Lymph % (Auto) 8.1 L 7.0 L Lymph # 0.4 L 0.4 L ESR 83 H Sodium 148 H Potassium Chloride 117 H Carbon Dioxide 18 L Glucose 157 H Calcium 8.5 L Phosphorus 2.5 L GGT 48 H AST 66 H Lactate Dehydrogenase 293 H C-Reactive Protein 6.3 H Total Protein Albumin 2.9 L Triglycerides 248 H Amylase 142 H Lipase 100 H Meds: Medications Albuterol/Ipratropium (Duoneb) 3 ml NEB Q6HRT [facility] Last Admin: 05/12/16 13:27 Dose: 3 ml Bisacodyl (Dulcolax) 10 mg DE Q2-3DAYS PRN PRN Reason: Constipation Dextrose (Dextrose 50%) 0 ml IV UD PRN PRN Reason: Hypoglycemia Diagnostic Test (Pha) (Accu-Chek) 1 each FS ACHS [facility] Last Admin: 05/12/16 12:27 Dose: 1 each Diphenhydramine HCl (Benadryl) 12.5 mg IV Q6HP PRN PRN Reason: Allergic Symptoms Docusate Sodium (Colace) 100 mg PO BID [facility] Last Admin: 05/12/16 08:31 Dose: Not Given Fentanyl (Duragesic) 50 mcg TOPICAL Q72H [facility] Last Admin: 05/10/16 12:09 Dose: 50 mcg Fluoxetine HCl (Prozac) 40 mg PO DAILY [facility] Last Admin: 05/12/16 08:31 Dose: 40 mg Gabapentin (Neurontin) 100 mg PO TID [facility] Last Admin: 05/12/16 08:31 Dose: 100 mg Gemfibrozil (Lopid) 600 mg PO BIDAC [facility] Last Admin: 05/12/16 08:34 Dose: 600 mg Heparin Sodium (Porcine) (Heparin) 5,000 unit SQ Q12 [facility] Last Admin: 05/12/16 08:31 Dose: 5,000 unit Hydromorphone HCl (Dilaudid) 0 mg IV Q2HP PRN PRN Reason: Pain Last Admin: 05/11/16 04:34 Dose: 1 mg Acetaminophen (Ofirmev) 1,000 mg in 100 mls @ 200 mls/hr IV Q6HP PRN PRN Reason: PAIN/FEVER > 101 Last Infusion: 05/12/16 10:48 Dose: Infused Piperacillin Sod/Tazobactam (Sod 3.375 gm/ Dextrose) 50 mls @ 100 mls/hr IV Q6H [facility] Last Infusion: 05/12/16 13:14 Dose: Infused Vancomycin HCl 1,000 mg/ (Sodium Chloride) 250 mls @ 250 mls/hr IV Q24H [facility] Last Admin: 05/12/16 13:13 Dose: 250 mls/hr Norepinephrine Bitartrate 16 (mg/ Sodium Chloride) 250 mls @ 9.37 mls/hr IV Q24HP PRN; Protocol; 10 MCG/MIN PRN Reason: TITRATE TO KEEP MAP > 60 Insulin Human Lispro (Humalog) 0 unit SQ ACHS [facility] PRN Reason: Protocol Last Admin: 05/12/16 09:19 Dose: 6 unit Levothyroxine Sodium (Synthroid) 150 mcg PO ACB [facility] Last Admin: 05/12/16 08:31 Dose: 150 mcg Lorazepam (Ativan) 1 mg PO TIDP PRN PRN Reason: Anxiety Last Admin: 05/11/16 20:02 Dose: 1 mg Lorazepam (Ativan) 0.5 mg IV TID PRN PRN Reason: ANXIETY/SEDATION Last Admin: 05/12/16 06:43 Dose: 0.5 mg Magnesium Hydroxide (Milk Of Magnesia) 30 ml PO DAILYP PRN PRN Reason: Constipation Methocarbamol (Robaxin) 750 mg PO Q6HP PRN PRN Reason: Muscle Spasm Last Admin: 05/12/16 04:22 Dose: 750 mg Methylprednisolone Sodium Succinate (Solu-Medrol) 40 mg IV DAILY [facility] Last Admin: 05/12/16 08:32 Dose: 40 mg Ondansetron HCl (Zofran Odt) 4 mg SL Q4HP PRN PRN Reason: Nausea And Vomiting Oxycodone HCl (Roxicodone) 0 mg PO Q4HP PRN PRN Reason: Pain Last Admin: 05/12/16 08:35 Dose: 2 mg Pantoprazole Sodium (Protonix) 40 mg IV BIDAC [facility] Last Admin: 05/12/16 08:30 Dose: 40 mg Potassium/Phosphorus/Sodium (Neutra Phos) 2 packet PO BID [facility] Last Admin: 05/12/16 12:27 Dose: 2 packet Sodium Biphosphate/Sodium Phosphate (Fleets Adult) 1 dose DE Q3-4DAYS PRN PRN Reason: Constipation Throat Lozenges (Cepacol) 1 lozenge PO PRN PRN PRN Reason: Sore Throat Tizanidine HCl (Zanaflex) 4 mg PO Q6H [facility] Last Admin: 05/12/16 08:32 Dose: 4 mg Vancomycin HCl (Vancomycin Per Pharmacy) 1 order IV UD [facility] Zolpidem Tartrate (Ambien) 5 mg PO HSP PRN PRN Reason: Insomnia Medical - PN: A/P - Time Spent With Patient Total time spent is greater than 50% in coordination of care (as documented) at patient's floor/unit and/or counseling patient: 25 - 35 minutes (1) Aspiration pneumonia Status: Acute Assessment and plan: * paraplegia Secondary to cord compression status post-spinal surgical decompression performed by Dr. Gomes.On high-dose steroids as per surgery issues managed by hospitalist service * drug-induced pancreatitis-clinically resolved * Aspiration pneumonia on Zosyn and Vanco. Clinically improved. white count down from 12.9->4.9 * mild hypokalemia on replacement * Low phosphorus diet replacement * mild SABRINA-creatinine down from 1.1 2.6 * DM type II withworsening secondary to IV steroids.blood sugars at goal * hypertension-systolics at goal * aspiration pneumonia-continue antibiotic coverage * Anasarca-responding well to diuretics * DVT prophylaxis on SCDs in light of recent spinal surgery(avoid HEPARIN) * hypothyroidism on thyroxine Plan * Replace potassium and phosphorus * continue diuresis * Continue antibiotics * pre-existing medical condition management as above * Transfer out of ICU in 24 hours if clinically stable Current Visit: Yes
[2016-05-12] MEDS ORDERED: METOPROLOL TARTRATE 5 MG/5 ML VIAL IV ONE ×2 (19:51→20:00)
[2016-05-12] MEDS: HYDROmorphone 2 MG/ML SYRINGE IV PRN (20:02)
[2016-05-13] MEDS: PIPERACILLIN SODIUM/TAZOBACTAM 3.375 GM in DEXTROSE 5% IN WATER 50 ML IV SCH ×4 (00:05→17:47)
[2016-05-13] MEDS: IPRATROPIUM/ALBUTEROL 3 ML AMPUL.NEB NEB SCH ×4 (00:05→19:50)
[2016-05-13] MEDS: tiZANidine 4 MG TABLET PO SCH ×4 (03:15→20:13)
[2016-05-13] MEDS: ACETAMINOPHEN 1,000 MG/100 ML BOTTLE IV PRN (03:16)
[2016-05-13] MEDS: oxyCODONE HCL 5 MG TABLET PO PRN ×3 (03:16→13:14)
[2016-05-13 05:24] LABS: Basophils # (Auto) 0 K/mcL (0.0-0.3); Basophils % (Auto) 0.2 % (0.0-2.0); Eosinophils # (Auto) 0.2 K/mcL (0.0-0.7); Eosinophils % (Auto) 2.8 % (0.0-7.0); Granulocytes % (Auto) 72.7 % (38.0-78.0); Lymphocytes # (Auto) 1.1 K/mcL (1.5-4.8); Lymphocytes % (Auto) 19.5 % (15.5-49.0); Mean Cell Volume 83.1 fL (80.0-100.0); Mean Corpuscular HGB Conc 32.4 g/dL (31.0-36.0); Mean Corpuscular Hemoglobin 26.9 pg (26.0-34.0); Monocytes # (Auto) 0.3 K/mcL (0.1-0.9); Monocytes % (Auto) 4.8 % (1.0-9.0); Platelet Count 155 K/mcL (140-440); RBC 2.83 M/mcL (4.00-5.20); Red Cell Distribution Width 14.3 % (11.5-14.5)
--- NOTE | 2016-05-13 07:01 | Orthopedic Progress Note ---
Subjective Patient information: Note initiated : 05/13/16 at 6:59 am Service Date, if different from initiated Date: [] Patient: Paula Mcfarlane 70 y/o F admitted on 05/06/16 for Lumbar Decompression. Chief Complaint: [] Principal diagnosis: cauda equina syndrome Interval history: No new complaints Still respiratory challenges Objective Vital signs: Vital Signs Temp Pulse Pulse Resp BP BP Pulse Ox 05/13/16 06:46 93 H 26 H 95 05/13/16 03:58 98.8 F 87 24 121/70 94 05/13/16 03:39 95 H 05/13/16 02:00 95 H 17 99 05/13/16 00:00 98.9 F 87 17 117/66 99 05/12/16 23:55 100 05/12/16 20:50 101 H 28 H 99 05/12/16 20:00 98.8 F 28 H 167/90 99 05/12/16 18:50 93 H 31 H 99 05/12/16 18:47 100 05/12/16 18:45 93 H 31 H 05/12/16 15:58 99.1 F 22 93/46 94 05/12/16 15:00 100 H 24 133/56 96 05/12/16 14:00 90 24 138/66 97 05/12/16 13:29 96 H 25 H 05/12/16 13:01 101 H 124/61 96 05/12/16 12:00 96.7 F L 22 104/53 97 05/12/16 11:00 87 20 105/47 99 05/12/16 10:01 100 H 30 H 111/56 97 05/12/16 09:03 102 H 159/81 97 05/12/16 08:00 98.8 F 109 H 24 153/77 99 05/12/16 07:05 99 H 28 H 96 05/12/16 07:02 108 H 96 H 24 153/87 100 Intake and Output 05/12/16 05/13/16 05/13/16 21:59 05:59 13:59 Intake Total 300 / 300 510 / 510 Output Total 3815 / 3815 350 / 350 Balance -3515 / -3515 160 / 160 Intake: IV 300 / 300 150 / 150 Dextrose 5% in Water 50 50 / 50 50 / 50 ml @ 100 mls/hr IV Q6H DIDIER with Zosyn 3.375 gm Rx#:[id number] Sodium Chloride 0.9% 250 250 / 250 ml @ 250 mls/hr IV Q24H DIDIER with Vancomycin 1,000 mg Rx#:[id number] Oral 360 / 360 Output: Urine Catheter Amount 3815 / 3815 350 / 350 Other: Weight 156 lb 1.6 oz Intake & Output: Intake & Output 05/12/16 05/13/16 05/13/16 21:59 05:59 13:59 Intake Total 300 / 300 510 / 510 Output Total 3815 / 3815 350 / 350 Balance -3515 / -3515 160 / 160 Weight 156 lb 1.6 oz Intake: IV 300 / 300 150 / 150 Dextrose 5% in Water 50 50 / 50 50 / 50 ml @ 100 mls/hr IV Q6H DIDIER with Zosyn 3.375 gm Rx#:[id number] Sodium Chloride 0.9% 250 250 / 250 ml @ 250 mls/hr IV Q24H DIDIER with Vancomycin 1,000 mg Rx#:[id number] Oral 360 / 360 Output: Urine Catheter Amount 3815 / 3815 350 / 350 Incision: Yes clean and dry Additional Comments: Neuro improved significantly - Labs CBC & BMP: 05/13/16 04:00 05/12/16 04:00 Labs: Orthopedic Labs 05/06/16 12:46 POC PT 13.7 POC INR 1.2 05/13/16 05/12/16 05/11/16 04:00 04:00 04:05 Hgb 7.6 L 8.7 L 8.5 L Hct 23.5 L 26.3 L 25.9 L 05/10/16 05/09/16 05/09/16 03:45 03:49 00:58 Hgb 8.9 L 9.0 L 8.1 L Hct 27.3 L 27.8 L 24.2 L 05/08/16 05/08/16 05/08/16 23:54 08:04 04:30 Hgb 7.5 L 11.3 L 10.9 L Hct 22.0 L 34.4 L 33.3 L 05/07/16 05/06/16 04:15 12:46 Hgb 10.8 L 11.1 L Hct 33.2 L 33.9 L Assessment and Plan (1) Paraplegia will taper steroid tomorrow. continue pain management. will need inpatient rehab will order tlso and begin to mobilize tlso avail, spoke with pt and they will mobilize in brace today. continue to mobilize with therapy. dressing change today. Status: Acute Comment: continue to mobilize daily pt/nursing daily dressing changes
[2016-05-13 07:08] LABS: ALT/SGPT 20 U/l (0-40); Albumin 2.5 gm/dL (3.2-5.2); Albumin/Globulin Ratio 1.1 (1.0-2.3); Alkaline Phosphatase 78 U/L (39-117); Amylase 42 U/L (28-100); Bilirubin,Direct 0.2 mg/dL (0.0-0.3); Blood Urea Nitrogen 10 mg/dl (8-23); Gamma Glutamyl Transpeptidase 44 U/L (5-36); Lipase 43 U/L (7-60); Magnesium 1.7 mg/dL (1.6-2.5); Phosphorous 2.5 mg/dL (2.7-4.5); Uric Acid 2.6 mg/dL (2.5-8.0)
[2016-05-13] MEDS: HYDROmorphone 2 MG/ML SYRINGE IV PRN (08:26)
[2016-05-13] MEDS: LEVOTHYROXINE 150 MCG TABLET PO SCH (08:50)
[2016-05-13] MEDS: GEMFIBROZIL 600 MG TABLET PO SCH ×2 (08:50→17:46)
[2016-05-13] MEDS: PANTOPRAZOLE 40 MG VIAL IV SCH ×2 (08:51→17:47)
[2016-05-13] MEDS ORDERED: FUROSEMIDE 20 MG/2 ML VIAL IV ONE (09:14)
[2016-05-13] MEDS: INSULIN LISPRO 1 UNIT/0.01 ML UNIT SQ SCH ×4 (09:45→20:26)
[2016-05-13] MEDS: DOCUSATE SODIUM 100 MG CAPSULE PO SCH ×3 (09:46→20:39)
[2016-05-13] MEDS: fentaNYL 50 MCG PATCH TOPICAL SCH (09:49)
--- NOTE | 2016-05-13 09:49 | XRay Report ---
CLINICAL INFORMATION: Hypoxia COMPARISON: 05/11/2016 FINDINGS: The heart is mildly enlarged, but stable. Mediastinum is unremarkable. Diffuse alveolar infiltrates predominantly throughout both lungs are again noted. There is considerable improved aeration in the right upper and bilateral lower lungs since the comparison study two days ago. There are no definite effusions. IMPRESSION: Diffuse alveolar infiltrates with moderate improved aeration in the right upper and both lower lungs since the comparison study two days ago. Findings compatible with improving ARDS Interpreted and Authenticated by: Juan Brennan 05/13/16
[2016-05-13] MEDS: GABAPENTIN 100 MG CAPSULE PO SCH ×3 (09:52→20:12)
[2016-05-13] MEDS: HEPARIN 5,000 UNIT/ML VIAL SQ SCH ×2 (09:52→20:13)
[2016-05-13] MEDS: FLUoxetine HCL 20 MG CAPSULE PO SCH (09:53)
[2016-05-13] MEDS: NEUTRA PHOS 1 PACKET PO SCH ×2 (09:53→20:12)
[2016-05-13] MEDS: methylPREDNISolone SOD SUCC 40 MG/ML VIAL IV SCH (09:54)
[2016-05-13] MEDS: METHOCARBAMOL 750 MG TABLET PO PRN (09:55)
--- NOTE | 2016-05-13 10:04 | Internal Med Progress Note ---
Medical - PN: Subj Patient information: Note initiated : 05/13/16 at 10:00 am Service Date, if different from initiated Date: [] Patient: Paula Mcfarlane 70 y/o F admitted on 05/06/16 for Lumbar Decompression. Chief Complaint: [] Interval history: 05/06-Ms. Mcfarlane is a 70 year old female admitted to Surgery (neurosurgery for spine decompression and fusion). The patient history obtained from chart review. On my eval the patient was in discomfort from post op pain and did not give any medical history. The patient seems has been suffering from lower extremity weakness, s/p fall and vertebral fracture in T12 region. This was fixed by a vertebroplasty a couple of days ago. The patient after surgery had significant back pain again and was seen in the pain clinic, the patient underwent a CT which revewaled significant narrowing of the upper aspect of the t12 vertebae. The patient also had new neurological symptoms, weakness in yimi lower extremities and was therefore taken to the OR today. S/p surgery. Medicine was consulted for management of chr medical conditions 05/12- Postoperatively patient developed aspiration pneumonia and was subsequently transferred to ICU. Patient was started on broad antibiotic coverage. patient has been gradually improving on antibiotics for aspiration pneumonia while she was aggressively resuscitated for sepsis with crystalloids. in the process she developed extensive lymphedema and was started on diuresis for anasarca. On BiPAP last 24 hours. Currently tolerating off BiPAP on 4-1/2 L oxygen. at bedside. Patient appears less anxious. Good urine output. No overnight fever chills nausea vomiting or concerns per staff 05/13-patient doing well. No overnight events except for brief episodes of anxiety. IV steroids being tapered as per orthopedics. Await transfer to [facility] acute care unit in the next 24-48 hours for continued rehabilitation. Persistent hypoxia but clinically improving since previous day. Overnight on BiPAP. transfer to telemetry. patient responded diuretics over 5000 cc net negative over the last 36 hours. continue physical therapy/pulmonary toilet and aspiration precautions. - Constitutional Vitals: Vital Signs Temp Pulse Resp BP Pulse Ox 98.8 F 107 H 27 H 131/66 97 05/13/16 03:58 05/13/16 09:09 05/13/16 09:09 05/13/16 08:00 05/13/16 09:09 Period Temp Pulse Resp BP Sys/Roldan Pulse Ox Last 24 Hr 96.7 F-99.1 F 87-118 17-36 93-167/46-90 94-100 Intake and Output 05/12/16 05/13/16 05/13/16 21:59 05:59 13:59 Intake Total 300 / 300 510 / 510 50 / 50 Output Total 3815 / 3815 350 / 350 Balance -3515 / -3515 160 / 160 50 / 50 Weight 156 lb 1.6 oz Intake & Output: Intake & Output 05/12/16 05/13/16 05/13/16 21:59 05:59 13:59 Intake Total 300 / 300 510 / 510 50 / 50 Output Total 3815 / 3815 350 / 350 Balance -3515 / -3515 160 / 160 50 / 50 Weight 156 lb 1.6 oz Intake: IV 300 / 300 150 / 150 50 / 50 Dextrose 5% in Water 50 50 / 50 50 / 50 50 / 50 ml @ 100 mls/hr IV Q6H DIDIER with Zosyn 3.375 gm Rx#:[id number] Sodium Chloride 0.9% 250 250 / 250 ml @ 250 mls/hr IV Q24H DIDIER with Vancomycin 1,000 mg Rx#:[id number] Oral 360 / 360 Output: Urine Catheter Amount 3815 / 3815 350 / 350 General appearance: cooperative, no acute distress Exam: alert oriented nonlabored breathing On Noninvasive ventilation nondistended abdomen medical anxiety Medical - PN: Obj Da - Labs CBC & Chem 7: 05/13/16 04:00 05/13/16 04:00 Labs: Abnormal Lab Results 05/13/16 05/13/16 05/12/16 04:00 04:00 04:00 RBC 2.83 L Hgb 7.6 L Hct 23.5 L Gran % Lymph % (Auto) Lymph # 1.1 L Potassium Carbon Dioxide Creatinine 0.5 L Glucose 164 H 188 H Calcium 7.8 L 8.4 L Phosphorus 2.5 L 1.8 L GGT 44 H 50 H AST Lactate Dehydrogenase 274 H Total Protein 4.7 L 5.3 L Albumin 2.5 L 2.9 L Triglycerides 197 H Lipase 77 H 05/12/16 05/11/16 05/11/16 04:00 04:10 04:05 RBC 3.23 L 3.15 L Hgb 8.7 L 8.5 L Hct 26.3 L 25.9 L Gran % 86.8 H Lymph % (Auto) 8.1 L Lymph # 0.8 L 0.4 L Potassium 3.2 L Carbon Dioxide 18 L Creatinine Glucose 227 H Calcium Phosphorus 2.0 L GGT 51 H AST 48 H Lactate Dehydrogenase 295 H Total Protein 5.6 L Albumin 3.0 L Triglycerides 350 H Lipase Meds: Medications Albuterol/Ipratropium (Duoneb) 3 ml NEB Q6HRT ON LICENSE OF [facility] Last Admin: 05/13/16 06:50 Dose: 3 ml Bisacodyl (Dulcolax) 10 mg UT Q2-3DAYS PRN PRN Reason: Constipation Dextrose (Dextrose 50%) 0 ml IV UD PRN PRN Reason: Hypoglycemia Diagnostic Test (Pha) (Accu-Chek) 1 each FS ACHS ON LICENSE OF [facility] Last Admin: 05/13/16 09:45 Dose: 1 each Diphenhydramine HCl (Benadryl) 12.5 mg IV Q6HP PRN PRN Reason: Allergic Symptoms Docusate Sodium (Colace) 100 mg PO BID ON LICENSE OF [facility] Last Admin: 05/13/16 09:46 Dose: Not Given Fentanyl (Duragesic) 50 mcg TOPICAL Q72H ON LICENSE OF [facility] Last Admin: 05/13/16 09:49 Dose: 50 mcg Fluoxetine HCl (Prozac) 40 mg PO DAILY ON LICENSE OF [facility] Last Admin: 05/13/16 09:53 Dose: 40 mg Gabapentin (Neurontin) 100 mg PO TID ON LICENSE OF [facility] Last Admin: 05/13/16 09:52 Dose: 100 mg Gemfibrozil (Lopid) 600 mg PO BIDAC ON LICENSE OF [facility] Last Admin: 05/13/16 08:50 Dose: 600 mg Heparin Sodium (Porcine) (Heparin) 5,000 unit SQ Q12 ON LICENSE OF [facility] Last Admin: 05/13/16 09:52 Dose: 5,000 unit Hydromorphone HCl (Dilaudid) 0 mg IV Q2HP PRN PRN Reason: Pain Last Admin: 05/13/16 08:26 Dose: 0.5 mg Acetaminophen (Ofirmev) 1,000 mg in 100 mls @ 200 mls/hr IV Q6HP PRN PRN Reason: PAIN/FEVER > 101 Last Admin: 05/13/16 03:16 Dose: 100 mls/hr Piperacillin Sod/Tazobactam (Sod 3.375 gm/ Dextrose) 50 mls @ 100 mls/hr IV Q6H ON LICENSE OF [facility] Last Infusion: 05/13/16 09:55 Dose: Infused Vancomycin HCl 1,000 mg/ (Sodium Chloride) 250 mls @ 250 mls/hr IV Q24H ON LICENSE OF [facility] Last Infusion: 05/12/16 15:35 Dose: Infused Norepinephrine Bitartrate 16 (mg/ Sodium Chloride) 250 mls @ 9.37 mls/hr IV Q24HP PRN; Protocol; 10 MCG/MIN PRN Reason: TITRATE TO KEEP MAP > 60 Insulin Human Lispro (Humalog) 0 unit SQ ACHS DIDIER PRN Reason: Protocol Last Admin: 05/13/16 09:45 Dose: 6 unit Levothyroxine Sodium (Synthroid) 150 mcg PO ACB ON LICENSE OF [facility] Last Admin: 05/13/16 08:50 Dose: 150 mcg Lorazepam (Ativan) 1 mg PO TIDP PRN PRN Reason: Anxiety Last Admin: 05/11/16 20:02 Dose: 1 mg Lorazepam (Ativan) 0.5 mg IV TID PRN PRN Reason: ANXIETY/SEDATION Last Admin: 05/12/16 19:25 Dose: 0.5 mg Magnesium Hydroxide (Milk Of Magnesia) 30 ml PO DAILYP PRN PRN Reason: Constipation Methocarbamol (Robaxin) 750 mg PO Q6HP PRN PRN Reason: Muscle Spasm Last Admin: 05/13/16 09:55 Dose: 750 mg Methylprednisolone Sodium Succinate (Solu-Medrol) 40 mg IV DAILY ON LICENSE OF [facility] Last Admin: 05/13/16 09:54 Dose: 40 mg Ondansetron HCl (Zofran Odt) 4 mg SL Q4HP PRN PRN Reason: Nausea And Vomiting Oxycodone HCl (Roxicodone) 0 mg PO Q4HP PRN PRN Reason: Pain Last Admin: 05/13/16 09:55 Dose: 10 mg Pantoprazole Sodium (Protonix) 40 mg IV BIDAC ON LICENSE OF [facility] Last Admin: 05/13/16 08:51 Dose: 40 mg Potassium/Phosphorus/Sodium (Neutra Phos) 2 packet PO BID ON LICENSE OF [facility] Last Admin: 05/13/16 09:53 Dose: 2 packet Sitagliptin Phosphate (Januvia) 100 mg PO DAILY ON LICENSE OF [facility] Sodium Biphosphate/Sodium Phosphate (Fleets Adult) 1 dose UT Q3-4DAYS PRN PRN Reason: Constipation Throat Lozenges (Cepacol) 1 lozenge PO PRN PRN PRN Reason: Sore Throat Tizanidine HCl (Zanaflex) 4 mg PO Q6H ON LICENSE OF [facility] Last Admin: 05/13/16 09:54 Dose: 4 mg Vancomycin HCl (Vancomycin Per Pharmacy) 1 order IV UD DIDIER Zolpidem Tartrate (Ambien) 5 mg PO HSP PRN PRN Reason: Insomnia Medical - PN: A/P - Time Spent With Patient Total time spent is greater than 50% in coordination of care (as documented) at patient's floor/unit and/or counseling patient: Greater than 35 minutes (critical care time) (1) Aspiration pneumonia Status: Acute Assessment and plan: * paraplegia Secondary to cord compression status post-spinal surgical decompression performed by Dr. Gomes.On high-dose steroids as per surgery issues managed by hospitalist service * hypoxic respiratory failure requiring noninvasive ventilation-improving with aggressive diuresis antibiotic coverage and aspiration precautions * drug-induced pancreatitis-clinically resolved. lipase down to 48 * Aspiration pneumonia continue Zosyn and Vanco. leukocytosis resolved * ow potassium on replacement * Low phosphorus -continuer eplacement * mild SABRINA-creatinine down from 1.1 - 0.5 * DM type II withworsening secondary to IV steroids.blood sugars at goal * hypertension-systolics at goal * Aspiration pneumonia-continue antibiotic coverage * Anasarca-responding well to diuretics * DVT prophylaxis on SCDs in light of recent spinal surgery. * Hypothyroidism on thyroxine Plan * Electrolyte replacement * Continue aggressive diuresis * PT OT * nticipate transfer to LTAC * pre-existing medical condition management as above * transfer to telemetry Current Visit: Yes
[2016-05-13] MEDS ORDERED: ACETAMINOPHEN 1,000 MG/100 ML BOTTLE IV PRN (10:24)
[2016-05-13] MEDS ORDERED: diphenhydrAMINE 50 MG/ML VIAL IV PRN (10:24)
[2016-05-13] MEDS ORDERED: DEXTROSE 50% 50 ML VIAL IV PRN (10:24)
[2016-05-13] MEDS ORDERED: HYDROmorphone 2 MG/ML SYRINGE IV PRN (10:24)
[2016-05-13] MEDS ORDERED: MAGNESIUM HYDROXIDE 30 ML ORAL.SUSP PO PRN (10:24)
[2016-05-13] MEDS ORDERED: BISACODYL 10 MG SUPP.RECT PR PRN (10:24)
[2016-05-13] MEDS ORDERED: NOREPINEPHRINE BITARTRATE 16 MG in 0.9 % SODIUM CHLORIDE 234 ML IV PRN (10:24)
[2016-05-13] MEDS ORDERED: LORazepam 1 MG TABLET PO PRN (10:24)
[2016-05-13] MEDS ORDERED: FLEETS ADULT ENEMA PR PRN (10:24)
[2016-05-13] MEDS ORDERED: VANCOMYCIN PER PHARMACY IV SCH (10:24)
[2016-05-13] MEDS ORDERED: METHOCARBAMOL 750 MG TABLET PO PRN (10:24)
[2016-05-13] MEDS ORDERED: BENZOCAINE/MENTHOL 1 LOZENGE PO PRN (10:24)
[2016-05-13] MEDS ORDERED: ACETAMINOPHEN 325 MG TABLET PO PRN (16:25)
[2016-05-13] MEDS: traMADol 50 MG TABLET PO PRN (16:36)
[2016-05-13] MEDS: LORazepam 2 MG/ML VIAL IV PRN (18:48)
[2016-05-13] MEDS: ALPRAZolam 0.25 MG TABLET PO SCH (20:13)
[2016-05-13] MEDS: ZOLPIDEM 5 MG TABLET PO PRN (20:13)
[2016-05-14] MEDS: PIPERACILLIN SODIUM/TAZOBACTAM 3.375 GM in DEXTROSE 5% IN WATER 50 ML IV SCH ×4 (00:48→18:01)
[2016-05-14] MEDS: IPRATROPIUM/ALBUTEROL 3 ML AMPUL.NEB NEB SCH ×4 (00:49→19:51)
[2016-05-14] MEDS: tiZANidine 4 MG TABLET PO SCH ×4 (03:00→20:39)
[2016-05-14] MEDS: LORazepam 2 MG/ML VIAL IV PRN ×2 (03:00→09:32)
[2016-05-14] MEDS: 0.9 % SODIUM CHLORIDE 10 ML SYRINGE IV SCH ×4 (06:13→22:15)
[2016-05-14] MEDS: GEMFIBROZIL 600 MG TABLET PO SCH ×2 (07:21→18:00)
[2016-05-14] MEDS: LEVOTHYROXINE 150 MCG TABLET PO SCH (07:21)
[2016-05-14] MEDS: traMADol 50 MG TABLET PO PRN ×2 (07:21→20:29)
[2016-05-14] MEDS: PANTOPRAZOLE 40 MG VIAL IV SCH ×2 (07:24→18:01)
[2016-05-14] MEDS: INSULIN LISPRO 1 UNIT/0.01 ML UNIT SQ SCH ×4 (07:58→20:31)
[2016-05-14] MEDS ORDERED: methylPREDNISolone SOD SUCC 40 MG/ML VIAL IV SCH (09:00)
[2016-05-14] MEDS ORDERED: sitaGLIPtin 100 MG TABLET PO SCH (09:00)
[2016-05-14] MEDS: ONDANSETRON ODT 4 MG TABLET SL PRN (09:23)
[2016-05-14] MEDS ORDERED: FUROSEMIDE 40 MG/4 ML VIAL IV ONE (09:53)
[2016-05-14] MEDS: HEPARIN 5,000 UNIT/ML VIAL SQ SCH ×2 (10:12→20:30)
[2016-05-14] MEDS: NEUTRA PHOS 1 PACKET PO SCH ×2 (10:13→20:38)
[2016-05-14] MEDS: GABAPENTIN 100 MG CAPSULE PO SCH ×3 (10:14→20:30)
[2016-05-14] MEDS: FLUoxetine HCL 20 MG CAPSULE PO SCH (10:14)
[2016-05-14] MEDS: sitaGLIPtin 100 MG TABLET PO SCH (10:14)
[2016-05-14] MEDS: DOCUSATE SODIUM 100 MG CAPSULE PO SCH ×2 (10:14→20:59)
[2016-05-14] MEDS: oxyCODONE HCL 5 MG TABLET PO PRN ×3 (10:29→18:21)
[2016-05-14 11:10] LABS: Basophils # (Auto) 0 K/mcL (0.0-0.3); Basophils % (Auto) 0 % (0.0-2.0); Eosinophils # (Auto) 0.2 K/mcL (0.0-0.7); Lymphocytes # (Auto) 0.8 K/mcL (1.5-4.8); Lymphocytes % (Auto) 12.2 % (15.5-49.0); Mean Cell Volume 81.4 fL (80.0-100.0); Mean Corpuscular Hemoglobin 26.9 pg (26.0-34.0); Monocytes # (Auto) 0.3 K/mcL (0.1-0.9); Monocytes % (Auto) 4.8 % (1.0-9.0); Platelet Count 212 K/mcL (140-440); RBC 3.18 M/mcL (4.00-5.20); Red Cell Distribution Width 14.6 % (11.5-14.5)
--- NOTE | 2016-05-14 11:15 | XRay Report ---
CLINICAL INFORMATION: Shortness of breath COMPARISON: 05/13/2016 FINDINGS: Diffuse alveolar infiltrates show marked increased consolidation in the upper lungs since yesterday's exam. Paradoxically, the lower lung components continue to clear. Mild cardiomegaly is unchanged. The mediastinum and pulmonary vasculature remain normal. No definite effusion IMPRESSION: Diffuse alveolar infiltrates with increasing consolidation in the upper lungs since yesterday's study. Paradoxically, there has been improvement in the basilar components Interpreted and Authenticated by: Juan Brennan 05/14/16
[2016-05-14] MEDS: ALPRAZolam 0.25 MG TABLET PO SCH ×2 (11:18→20:43)
--- NOTE | 2016-05-14 11:31 | Internal Med Progress Note ---
Medical - PN: Subj Patient information: Note initiated : 05/14/16 at 11:28 am Service Date, if different from initiated Date: [] Patient: Paula Mcfarlane 70 y/o F admitted on 05/06/16 for Lumbar Decompression. Chief Complaint: [] Interval history: 05/06-Ms. Mcfarlane is a 70 year old female admitted to Surgery (neurosurgery for spine decompression and fusion). The patient history obtained from chart review. On my eval the patient was in discomfort from post op pain and did not give any medical history. The patient seems has been suffering from lower extremity weakness, s/p fall and vertebral fracture in T12 region. This was fixed by a vertebroplasty a couple of days ago. The patient after surgery had significant back pain again and was seen in the pain clinic, the patient underwent a CT which revewaled significant narrowing of the upper aspect of the t12 vertebae. The patient also had new neurological symptoms, weakness in yimi lower extremities and was therefore taken to the OR today. S/p surgery. Medicine was consulted for management of chr medical conditions 05/12- Postoperatively patient developed aspiration pneumonia and was subsequently transferred to ICU. Patient was started on broad antibiotic coverage. patient has been gradually improving on antibiotics for aspiration pneumonia while she was aggressively resuscitated for sepsis with crystalloids. in the process she developed extensive lymphedema and was started on diuresis for anasarca. On BiPAP last 24 hours. Currently tolerating off BiPAP on 4-1/2 L oxygen. at bedside. Patient appears less anxious. Good urine output. No overnight fever chills nausea vomiting or concerns per staff 05/13-patient doing well. No overnight events except for brief episodes of anxiety. IV steroids being tapered as per orthopedics. Await transfer to [facility] acute care unit in the next 24-48 hours for continued rehabilitation. Persistent hypoxia but clinically improving since previous day. Overnight on BiPAP. transfer to telemetry. patient responded diuretics over 5000 cc net negative over the last 36 hours. continue physical therapy/pulmonary toilet and aspiration precautions. 05/14-patient poorly motivated to participate in physical therapy. Overnight on BiPAP requiring 50% FiO2. Aggressive diuresis ongoing. worsening chest infiltrates in the upper lobe on interval imaging. continue aggressive diuresis to improve lung compliance. Continue physical therapy. Wean BiPAP as tolerated. Continue antibiotic coverage and aspiration precautions - Constitutional Vitals: Vital Signs Temp Pulse Resp BP Pulse Ox 99.0 F 112 H 27 H 157/88 94 05/14/16 07:20 05/14/16 11:08 05/14/16 11:08 05/14/16 07:20 05/14/16 11:08 Period Temp Pulse Resp BP Sys/Roldan Pulse Ox Last 24 Hr 98.2 F-99.6 F 88-124 16-36 109-157/52-88 91-100 Intake and Output 05/13/16 05/14/16 05/14/16 21:59 05:59 13:59 Intake Total 710 / 710 530 / 530 50 / 50 Output Total 1200 / 1200 1050 / 1050 750 / 750 Balance -490 / -490 -520 / -520 -700 / -700 Weight 157 lb 4.8 oz Intake & Output: Intake & Output 05/13/16 05/14/16 05/14/16 21:59 05:59 13:59 Intake Total 710 / 710 530 / 530 50 / 50 Output Total 1200 / 1200 1050 / 1050 750 / 750 Balance -490 / -490 -520 / -520 -700 / -700 Weight 157 lb 4.8 oz Intake: IV 50 / 50 50 / 50 50 / 50 Dextrose 5% in Water 50 50 / 50 50 / 50 50 / 50 ml @ 100 mls/hr IV Q6 DIDIER with Zosyn 3.375 gm Rx#: [id number] Oral 660 / 660 480 / 480 Output: Urine Catheter Amount 1200 / 1200 1050 / 1050 750 / 750 Other: Meal Lunch Percent of Meal Consumed 25% # Bowel Movements 1 0 General appearance: cooperative Exam: nxious on noninvasive ventilation Intermittent tachycardia to 150s Foleys draining clear urine Nondistended abdomen Medical - PN: Obj Da - Labs CBC & Chem 7: 05/14/16 09:52 05/13/16 04:00 Labs: Abnormal Lab Results 05/14/16 05/13/16 05/13/16 09:52 04:00 04:00 RBC 3.18 L 2.83 L Hgb 8.6 L 7.6 L Hct 25.9 L 23.5 L RDW 14.6 H Gran % 80.0 H Lymph % (Auto) 12.2 L Lymph # 0.8 L 1.1 L Creatinine 0.5 L Glucose 164 H Calcium 7.8 L Phosphorus 2.5 L GGT 44 H Lactate Dehydrogenase Total Protein 4.7 L Albumin 2.5 L Triglycerides Lipase 05/12/16 05/12/16 04:00 04:00 RBC 3.23 L Hgb 8.7 L Hct 26.3 L RDW Gran % Lymph % (Auto) Lymph # 0.8 L Creatinine Glucose 188 H Calcium 8.4 L Phosphorus 1.8 L GGT 50 H Lactate Dehydrogenase 274 H Total Protein 5.3 L Albumin 2.9 L Triglycerides 197 H Lipase 77 H Meds: Medications Acetaminophen (Tylenol) 650 mg PO Q6HP PRN PRN Reason: PAIN/FEVER > 101 Albuterol/Ipratropium (Duoneb) 3 ml NEB Q6HRT [facility] Last Admin: 05/14/16 07:43 Dose: 3 ml Alprazolam (Xanax) 0.25 mg PO BID [facility] Last Admin: 05/14/16 11:18 Dose: 0.25 mg Bisacodyl (Dulcolax) 10 mg MI Q2-3DAYS PRN PRN Reason: Constipation Dextrose (Dextrose 50%) 0 ml IV UD PRN PRN Reason: Hypoglycemia Diagnostic Test (Pha) (Accu-Chek) 1 each FS ACHS [facility] Last Admin: 05/14/16 07:58 Dose: 1 each Diphenhydramine HCl (Benadryl) 12.5 mg IV Q6HP PRN PRN Reason: Allergic Symptoms Docusate Sodium (Colace) 100 mg PO BID [facility] Last Admin: 05/14/16 10:14 Dose: 100 mg Fentanyl (Duragesic) 50 mcg TOPICAL Q72H [facility] Fluoxetine HCl (Prozac) 40 mg PO DAILY [facility] Last Admin: 05/14/16 10:14 Dose: 40 mg Gabapentin (Neurontin) 100 mg PO TID [facility] Last Admin: 05/14/16 10:14 Dose: 100 mg Gemfibrozil (Lopid) 600 mg PO BIDAC [facility] Last Admin: 05/14/16 07:21 Dose: 600 mg Heparin Sodium (Porcine) (Heparin) 5,000 unit SQ Q12 [facility] Last Admin: 05/14/16 10:12 Dose: 5,000 unit Hydromorphone HCl (Dilaudid) 0 mg IV Q2HP PRN PRN Reason: Pain Last Admin: 05/14/16 01:41 Dose: 0.5 mg Norepinephrine Bitartrate 16 (mg/ Sodium Chloride) 250 mls @ 9.37 mls/hr IV Q24HP PRN; Protocol; 10 MCG/MIN PRN Reason: TITRATE TO KEEP MAP > 65 Acetaminophen (Ofirmev) 1,000 mg in 100 mls @ 200 mls/hr IV Q6HP PRN PRN Reason: PAIN/FEVER > 101 Piperacillin Sod/Tazobactam (Sod 3.375 gm/ Dextrose) 50 mls @ 100 mls/hr IV Q6 [facility] Last Infusion: 05/14/16 07:10 Dose: Infused Insulin Human Lispro (Humalog) 0 unit SQ ACHS DIDIER PRN Reason: Protocol Last Admin: 05/14/16 07:58 Dose: 6 unit Levothyroxine Sodium (Synthroid) 150 mcg PO ACB [facility] Last Admin: 05/14/16 07:21 Dose: 150 mcg Lorazepam (Ativan) 1 mg PO TIDP PRN PRN Reason: Anxiety Last Admin: 05/14/16 01:41 Dose: 1 mg Lorazepam (Ativan) 0.5 mg IV TID PRN PRN Reason: ANXIETY/SEDATION Last Admin: 05/14/16 09:32 Dose: 0.5 mg Magnesium Hydroxide (Milk Of Magnesia) 30 ml PO DAILYP PRN PRN Reason: Constipation Methocarbamol (Robaxin) 750 mg PO Q6HP PRN PRN Reason: Muscle Spasm Methylprednisolone Sodium Succinate (Solu-Medrol) 40 mg IV DAILY [facility] Last Admin: 05/14/16 10:13 Dose: 40 mg Ondansetron HCl (Zofran Odt) 4 mg SL Q4HP PRN PRN Reason: Nausea And Vomiting Last Admin: 05/14/16 09:23 Dose: 4 mg Oxycodone HCl (Roxicodone) 0 mg PO Q4HP PRN PRN Reason: Pain Last Admin: 05/14/16 10:29 Dose: 10 mg Pantoprazole Sodium (Protonix) 40 mg IV BIDAC [facility] Last Admin: 05/14/16 07:24 Dose: 40 mg Potassium/Phosphorus/Sodium (Neutra Phos) 2 packet PO BID [facility] Last Admin: 05/14/16 10:13 Dose: 2 packet Sitagliptin Phosphate (Januvia) 100 mg PO DAILY [facility] Last Admin: 05/14/16 10:14 Dose: 100 mg Sodium Biphosphate/Sodium Phosphate (Fleets Adult) 1 dose MI Q3-4DAYS PRN PRN Reason: Constipation Sodium Chloride (Saline Flush) 10 ml IV Q8 [facility] Last Admin: 05/14/16 06:13 Dose: 10 ml Throat Lozenges (Cepacol) 1 lozenge PO PRN PRN PRN Reason: Sore Throat Tizanidine HCl (Zanaflex) 4 mg PO Q6H [facility] Last Admin: 05/14/16 11:27 Dose: 4 mg Tramadol HCl (Ultram) 100 mg PO QIDP PRN PRN Reason: Pain Last Admin: 05/14/16 07:21 Dose: 100 mg Zolpidem Tartrate (Ambien) 5 mg PO HSP PRN PRN Reason: Insomnia Last Admin: 05/13/16 20:13 Dose: 5 mg Medical - PN: A/P - Time Spent With Patient Total time spent is greater than 50% in coordination of care (as documented) at patient's floor/unit and/or counseling patient: Greater than 35 minutes (critical care time) (1) Aspiration pneumonia Status: Acute Assessment and plan: * Paraplegia secondary to cord compression status post-spinal surgical decompression performed by Dr. Gomes. On high-dose steroids as per surgery. steroid to be weaned as per surgery issues managed by hospitalist service * Hypoxic respiratory failure requiring NIPPV. * Multifocal pneumonia likely aspiration-worsening clinical and imaging. Continue diuresis/antibiotics/aspiration precautions * Sepsis- improving leukocytosis with persistent tachycardia and tachypnea. Secondary to above * abnormal electrolytes on aggressive replacement. * Mild SABRINA-creatinine down from 1.1 - 0.5 * iatrogenic pancreatitis- likely secondary to surgery/anesthesia. clinically resolved. * DM type II -suboptimal control secondary to IV steroids. * Hypertension-systolics at goal * Anasarca-responding well to diuretics * DVT prophylaxis on SCD- start heparin * Hypothyroidism on thyroxine Plan * Continue noninvasive ventilation * wean steroids as per surgery * potassium replacement * aggressive diuresis * continue PT OT * Continue telemetry monitoring Current Visit: Yes
[2016-05-14 11:32] LABS: ALT/SGPT 17 U/l (0-40); Albumin 2.6 gm/dL (3.2-5.2); Albumin/Globulin Ratio 0.9 (1.0-2.3); Alkaline Phosphatase 90 U/L (39-117); Bilirubin,Direct < 0.2 mg/dL (0.0-0.3); Blood Urea Nitrogen 8 mg/dl (8-23); Gamma Glutamyl Transpeptidase 52 U/L (5-36); Magnesium 1.8 mg/dL (1.6-2.5); Phosphorous 1.9 mg/dL (2.7-4.5); Uric Acid 2.3 mg/dL (2.5-8.0)
[2016-05-14] MEDS: POTASSIUM CHLORIDE 20 MEQ/15 ML ML PT SCH ×2 (12:46→18:04)
[2016-05-14] MEDS: FUROSEMIDE 20 MG/2 ML VIAL IV SCH ×2 (14:29→22:15)
--- NOTE | 2016-05-14 16:02 | Orthopedic Progress Note ---
Subjective Patient information: Note initiated : 05/14/16 at 4:01 pm Service Date, if different from initiated Date: [] Patient: Paula Mcfarlane 70 y/o F admitted on 05/06/16 for Lumbar Decompression. Chief Complaint: [] Principal diagnosis: cauda equina syndrome Interval history: no new problems Objective Vital signs: Vital Signs Temp Pulse Pulse Resp BP BP Pulse Ox 05/14/16 13:29 96 05/14/16 13:27 96 05/14/16 13:25 99 H 24 05/14/16 12:00 99.0 F 102 H 24 130/70 97 05/14/16 11:08 112 H 27 H 94 05/14/16 09:32 124 H 36 H 95 05/14/16 09:30 94 05/14/16 07:55 110 H 36 H 95 05/14/16 07:45 117 H 18 95 05/14/16 07:20 99.0 F 157/88 157/88 91 05/14/16 04:00 98.2 F 89 18 109/56 92 05/14/16 01:06 90 18 05/14/16 00:00 98.2 F 88 16 115/57 95 05/13/16 20:00 99.6 F 100 H 19 125/52 98 05/13/16 19:54 94 05/13/16 19:50 93 H 28 H 98 05/13/16 19:15 91 H 28 H Intake and Output 05/14/16 05/14/16 05/14/16 05:59 13:59 21:59 Intake Total 530 / 530 100 / 100 300 / 300 Output Total 1050 / 1050 750 / 750 Balance -520 / -520 -650 / -650 300 / 300 Intake: IV 50 / 50 100 / 100 Dextrose 5% in Water 50 50 / 50 100 / 100 ml @ 100 mls/hr IV Q6 DIDIER with Zosyn 3.375 gm Rx#: [id number] Oral 480 / 480 300 / 300 Output: Urine Catheter Amount 1050 / 1050 750 / 750 Other: Meal Nourishment/Supplement # Bowel Movements 0 Intake & Output: Intake & Output 05/14/16 05/14/16 05/14/16 05:59 13:59 21:59 Intake Total 530 / 530 100 / 100 300 / 300 Output Total 1050 / 1050 750 / 750 Balance -520 / -520 -650 / -650 300 / 300 Intake: IV 50 / 50 100 / 100 Dextrose 5% in Water 50 50 / 50 100 / 100 ml @ 100 mls/hr IV Q6 DIDIER with Zosyn 3.375 gm Rx#: [id number] Oral 480 / 480 300 / 300 Output: Urine Catheter Amount 1050 / 1050 750 / 750 Other: Meal Nourishment/Supplement # Bowel Movements 0 Incision: Yes clean and dry - Labs CBC & BMP: 05/14/16 09:52 05/14/16 09:52 Labs: Orthopedic Labs 05/06/16 12:46 POC PT 13.7 POC INR 1.2 05/14/16 05/13/16 05/12/16 09:52 04:00 04:00 Hgb 8.6 L 7.6 L 8.7 L Hct 25.9 L 23.5 L 26.3 L 05/11/16 05/10/16 05/09/16 04:05 03:45 03:49 Hgb 8.5 L 8.9 L 9.0 L Hct 25.9 L 27.3 L 27.8 L 05/09/16 05/08/16 05/08/16 00:58 23:54 08:04 Hgb 8.1 L 7.5 L 11.3 L Hct 24.2 L 22.0 L 34.4 L 05/08/16 05/07/16 05/06/16 04:30 04:15 12:46 Hgb 10.9 L 10.8 L 11.1 L Hct 33.3 L 33.2 L 33.9 L Assessment and Plan (1) Paraplegia will taper steroid tomorrow. continue pain management. will need inpatient rehab will order tlso and begin to mobilize tlso avail, spoke with pt and they will mobilize in brace today. continue to mobilize with therapy. dressing change today. Status: Acute Comment: continue to mobilize daily pt/nursing daily dressing changes
[2016-05-14] MEDS: ZOLPIDEM 5 MG TABLET PO PRN (20:30)
[2016-05-15] MEDS: IPRATROPIUM/ALBUTEROL 3 ML AMPUL.NEB NEB SCH ×4 (00:16→18:29)
[2016-05-15] MEDS: PIPERACILLIN SODIUM/TAZOBACTAM 3.375 GM in DEXTROSE 5% IN WATER 50 ML IV SCH ×2 (00:17→05:38)
[2016-05-15] MEDS: oxyCODONE HCL 5 MG TABLET PO PRN ×3 (00:57→08:43)
[2016-05-15] MEDS: tiZANidine 4 MG TABLET PO SCH ×2 (02:16→12:22)
[2016-05-15] MEDS: FUROSEMIDE 20 MG/2 ML VIAL IV SCH ×3 (05:30→22:20)
[2016-05-15] MEDS: 0.9 % SODIUM CHLORIDE 10 ML SYRINGE IV SCH (05:35)
[2016-05-15 06:04] LABS: Mean Cell Volume 82.7 fL (80.0-100.0); Mean Corpuscular HGB Conc 32.1 g/dL (31.0-36.0); Mean Corpuscular Hemoglobin 26.5 pg (26.0-34.0); Platelet Count 187 K/mcL (140-440); RBC 2.99 M/mcL (4.00-5.20)
[2016-05-15] MEDS: traMADol 50 MG TABLET PO PRN ×2 (06:08→12:32)
[2016-05-15 06:42] LABS: ALT/SGPT 16 U/l (0-40); Albumin 2.6 gm/dL (3.2-5.2); Albumin/Globulin Ratio 1.1 (1.0-2.3); Alkaline Phosphatase 91 U/L (39-117); Bilirubin,Direct 0.2 mg/dL (0.0-0.3); Blood Urea Nitrogen 11 mg/dl (8-23); Gamma Glutamyl Transpeptidase 56 U/L (5-36); Magnesium 1.7 mg/dL (1.6-2.5); Uric Acid 2.3 mg/dL (2.5-8.0)
[2016-05-15 07:09] LABS: Anisocytosis 1+ (NONE SEEN); Band Neutrophils % 2 % (0-10); Eosinophils % (Manual) 5 % (0-7); Lymphocytes % 18 % (15-49); Monocytes % (Manual) 3 % (1-9); Platelet Estimate NORMAL (NORMAL); RBC Morphology ABNORM (NORMAL); Segmented Neutrophils % 72 % (38-78)
[2016-05-15] MEDS: INSULIN LISPRO 1 UNIT/0.01 ML UNIT SQ SCH ×4 (08:03→22:23)
[2016-05-15] MEDS: ALPRAZolam 0.25 MG TABLET PO SCH ×2 (08:05→21:19)
[2016-05-15] MEDS: LEVOTHYROXINE 150 MCG TABLET PO SCH (08:06)
[2016-05-15] MEDS: PANTOPRAZOLE 40 MG VIAL IV SCH (08:06)
[2016-05-15] MEDS: GEMFIBROZIL 600 MG TABLET PO SCH ×2 (08:07→18:20)
--- NOTE | 2016-05-15 09:39 | Orthopedic Progress Note ---
Orthopedics - Auxillary Note - Subjective Patient Information: Note initiated : 05/15/16 at 9:37 am Service Date, if different from initiated Date: [] Patient: Paula Mcfarlane 70 y/o F admitted on 05/06/16 for Lumbar Decompression. Chief Complaint: Pt reports feeling very fatigued an not wanting to do PT. Sensation grossly intact to light tough bilateral LE. Pt is able to actively flex/ext her Left knee. Vital Signs Temp Pulse Pulse Resp BP BP Pulse Ox 05/15/16 08:21 99.3 F 107 H 24 156/75 96 05/15/16 07:37 90 05/15/16 07:34 78 L 05/15/16 07:18 110 H 28 H 05/15/16 03:35 97.4 F L 87 22 106/61 92 05/15/16 00:00 98.3 F 90 24 118/73 97 05/14/16 23:54 97 H 16 95 05/14/16 21:10 97 05/14/16 19:52 99 H 24 05/14/16 19:45 98.5 F 94 H 24 116/59 97 05/14/16 16:00 97.9 F 93 H 24 118/66 97 05/14/16 13:29 96 05/14/16 13:27 96 05/14/16 13:25 99 H 24 05/14/16 12:00 99.0 F 102 H 24 130/70 97 05/14/16 11:08 112 H 27 H 94 Intake and Output 05/14/16 05/15/16 05/15/16 21:59 05:59 13:59 Intake Total 1060 / 1060 230 / 230 Output Total 1200 / 1200 800 / 800 Balance -140 / -140 -570 / -570 Intake: IV 50 / 50 50 / 50 Dextrose 5% in Water 50 50 / 50 50 / 50 ml @ 100 mls/hr IV Q6 DIDIER with Zosyn 3.375 gm Rx#: [id number] Oral 1010 / 1010 180 / 180 Output: Urine Catheter Amount 1200 / 1200 800 / 800 Other: Meal Nourishment/Supplement early childhood worker snack-ice cream Percent of Meal Consumed 100% 75% Feeding Ability Assist with Tray Set Up Weight 151 lb 4.8 oz Laboratory Results - last 24 hr 05/14/16 05/14/16 05/15/16 09:52 09:52 04:35 WBC 6.3 5.8 RBC 3.18 L 2.99 L Hgb 8.6 L 7.9 L Hct 25.9 L 24.7 L MCV 81.4 82.7 MCH 26.9 26.5 MCHC 33.0 32.1 RDW 14.6 H 15.0 H Plt Count 212 187 MPV 8.3 8.5 Gran % 80.0 H Lymph % (Auto) 12.2 L [place] % (Auto) 4.8 Eos % (Auto) 3.0 Baso % (Auto) 0 Gran # 5.1 Lymph # 0.8 L [place] # 0.3 Eos # 0.2 Baso # 0 Total Counted 100 Seg Neutrophils % 72 Band Neutrophils % 2 Lymphocytes % 18 Monocytes % (Manual) 3 Eosinophils % (Manual) 5 Platelet Estimate Normal RBC Morphology Abnorm A Polychromasia 1+ A Anisocytosis 1+ A Sodium 137 Potassium 3.0 L Chloride 100 Carbon Dioxide 22 Anion Gap 15.0 BUN 8 Creatinine 0.6 GFR Calculation 92 Glucose 213 H Uric Acid 2.3 L Calcium 8.3 L Phosphorus 1.9 L Magnesium 1.8 Total Bilirubin 0.4 Direct Bilirubin < 0.2 GGT 52 H AST 21 ALT 17 Alkaline Phosphatase 90 Lactate Dehydrogenase 279 H Total Protein 5.6 L Albumin 2.6 L Globulin 3.0 Albumin/Globulin Ratio 0.9 L Triglycerides 193 H 05/15/16 04:35 WBC RBC Hgb Hct MCV MCH MCHC RDW Plt Count MPV Gran % Lymph % (Auto) [place] % (Auto) Eos % (Auto) Baso % (Auto) Gran # Lymph # [place] # Eos # Baso # Total Counted Seg Neutrophils % Band Neutrophils % Lymphocytes % Monocytes % (Manual) Eosinophils % (Manual) Platelet Estimate RBC Morphology Polychromasia Anisocytosis Sodium 135 Potassium 3.4 Chloride 97 Carbon Dioxide 26 Anion Gap 12.0 BUN 11 Creatinine 0.6 GFR Calculation 92 Glucose 231 H Uric Acid 2.3 L Calcium 7.9 L Phosphorus 3.0 Magnesium 1.7 Total Bilirubin 0.4 Direct Bilirubin 0.2 GGT 56 H AST 18 ALT 16 Alkaline Phosphatase 91 Lactate Dehydrogenase 278 H Total Protein 5.0 L Albumin 2.6 L Globulin 2.4 Albumin/Globulin Ratio 1.1 Triglycerides 163 H s/p Thoracic decompression and fusion from [id number] mobilize with PT with use of tlso. cont with medical management per hospitalist.
[2016-05-15] MEDS: sitaGLIPtin 100 MG TABLET PO SCH (09:48)
[2016-05-15] MEDS: FLUoxetine HCL 20 MG CAPSULE PO SCH (09:50)
[2016-05-15] MEDS: GABAPENTIN 100 MG CAPSULE PO SCH ×3 (09:51→21:18)
[2016-05-15] MEDS: HEPARIN 5,000 UNIT/ML VIAL SQ SCH ×2 (09:52→21:18)
[2016-05-15] MEDS: POTASSIUM CHLORIDE 20 MEQ/15 ML ML PT SCH ×3 (09:52→21:19)
[2016-05-15] MEDS: NEUTRA PHOS 1 PACKET PO SCH ×2 (09:53→21:20)
--- NOTE | 2016-05-15 09:53 | Internal Med Progress Note ---
Medical - PN: Subj Patient information: Note initiated : 05/15/16 at 9:45 am Service Date, if different from initiated Date: [] Patient: Paula Mcfarlane 70 y/o F admitted on 05/06/16 for Lumbar Decompression. Chief Complaint: [] Interval history: 05/06-Ms. Mcfarlane is a 70 year old female admitted to Surgery (neurosurgery for spine decompression and fusion). The patient history obtained from chart review. On my eval the patient was in discomfort from post op pain and did not give any medical history. The patient seems has been suffering from lower extremity weakness, s/p fall and vertebral fracture in T12 region. This was fixed by a vertebroplasty a couple of days ago. The patient after surgery had significant back pain again and was seen in the pain clinic, the patient underwent a CT which revewaled significant narrowing of the upper aspect of the t12 vertebae. The patient also had new neurological symptoms, weakness in yimi lower extremities and was therefore taken to the OR today. S/p surgery. Medicine was consulted for management of chr medical conditions 05/12- Postoperatively patient developed aspiration pneumonia and was subsequently transferred to ICU. Patient was started on broad antibiotic coverage. patient has been gradually improving on antibiotics for aspiration pneumonia while she was aggressively resuscitated for sepsis with crystalloids. in the process she developed extensive lymphedema and was started on diuresis for anasarca. On BiPAP last 24 hours. Currently tolerating off BiPAP on 4-1/2 L oxygen. at bedside. Patient appears less anxious. Good urine output. No overnight fever chills nausea vomiting or concerns per staff 05/13-patient doing well. No overnight events except for brief episodes of anxiety. IV steroids being tapered as per orthopedics. Await transfer to [facility] acute care unit in the next 24-48 hours for continued rehabilitation. Persistent hypoxia but clinically improving since previous day. Overnight on BiPAP. transfer to telemetry. patient responded diuretics over 5000 cc net negative over the last 36 hours. continue physical therapy/pulmonary toilet and aspiration precautions. 05/14-patient poorly motivated to participate in physical therapy. Overnight on BiPAP requiring 50% FiO2. Aggressive diuresis ongoing. worsening chest infiltrates in the upper lobe on interval imaging. continue aggressive diuresis to improve lung compliance. Continue physical therapy. Wean BiPAP as tolerated. Continue antibiotic coverage and aspiration precautions 05/15- patient clinically improvingwith aggressive diuresis. Down to 3 L oxygen. Still feels fatigued and lethargic and poorly motivated to participate in physical therapy. steroids discontinued. anticipate SNF transfer Tuesday. excessive fatigue nephrology likely secondary to sedatives/opioids. DC zolpidem/ lorazepam/methocarbamol/ydromorphone/switch to oral PPI. DC antibiotics. IV iron sucrose for anemia. Restart home medications including Plavix home dose opioids -discontinue all IV inpatient opioids. initiated aggressive physical therapy - Constitutional Vitals: Vital Signs Temp Pulse Resp BP Pulse Ox 99.3 F 107 H 24 156/75 96 05/15/16 08:21 05/15/16 08:21 05/15/16 08:21 05/15/16 08:21 05/15/16 08:21 Period Temp Pulse Resp BP Sys/Roldan Pulse Ox Last 24 Hr 97.4 F-99.3 F 87-112 16-28 106-156/59-75 78-97 Intake and Output 05/14/16 05/15/16 05/15/16 21:59 05:59 13:59 Intake Total 1060 / 1060 230 / 230 Output Total 1200 / 1200 800 / 800 Balance -140 / -140 -570 / -570 Weight 151 lb 4.8 oz Intake & Output: Intake & Output 05/14/16 05/15/16 05/15/16 21:59 05:59 13:59 Intake Total 1060 / 1060 230 / 230 Output Total 1200 / 1200 800 / 800 Balance -140 / -140 -570 / -570 Weight 151 lb 4.8 oz Intake: IV 50 / 50 50 / 50 Dextrose 5% in Water 50 50 / 50 50 / 50 ml @ 100 mls/hr IV Q6 DIDIER with Zosyn 3.375 gm Rx#: [id number] Oral 1010 / 1010 180 / 180 Output: Urine Catheter Amount 1200 / 1200 800 / 800 Other: Meal Nourishment/Supplement acupressure therapist snack-ice cream Percent of Meal Consumed 100% 75% Feeding Ability Assist with Tray Set Up General appearance: cooperative, no acute distress Exam: fatigued and lethargic and anxious Nonlabored breathing-n 2.5 L oxygen Abdomen soft Lymphedema significantly improved Foleys draining clear urine Medical - PN: Obj Da - Labs CBC & Chem 7: 05/15/16 04:35 02/25/17 04:35 Labs: Abnormal Lab Results 05/15/16 05/15/16 05/14/16 04:35 04:35 09:52 RBC 2.99 L Hgb 7.9 L Hct 24.7 L RDW 15.0 H Gran % Lymph % (Auto) Lymph # RBC Morphology Abnorm A Polychromasia 1+ A Anisocytosis 1+ A Potassium 3.0 L Creatinine Glucose 231 H 213 H Uric Acid 2.3 L 2.3 L Calcium 7.9 L 8.3 L Phosphorus 1.9 L GGT 56 H 52 H Lactate Dehydrogenase 278 H 279 H Total Protein 5.0 L 5.6 L Albumin 2.6 L 2.6 L Albumin/Globulin Ratio 0.9 L Triglycerides 163 H 193 H 05/14/16 05/13/16 05/13/16 09:52 04:00 04:00 RBC 3.18 L 2.83 L Hgb 8.6 L 7.6 L Hct 25.9 L 23.5 L RDW 14.6 H Gran % 80.0 H Lymph % (Auto) 12.2 L Lymph # 0.8 L 1.1 L RBC Morphology Polychromasia Anisocytosis Potassium Creatinine 0.5 L Glucose 164 H Uric Acid Calcium 7.8 L Phosphorus 2.5 L GGT 44 H Lactate Dehydrogenase Total Protein 4.7 L Albumin 2.5 L Albumin/Globulin Ratio Triglycerides Meds: Medications Acetaminophen (Tylenol) 650 mg PO Q6HP PRN PRN Reason: PAIN/FEVER > 101 Albuterol/Ipratropium (Duoneb) 3 ml NEB Q6HRT [facility] Last Admin: 05/15/16 07:17 Dose: 3 ml Alprazolam (Xanax) 0.25 mg PO BID [facility] Last Admin: 05/15/16 08:05 Dose: 0.25 mg Bisacodyl (Dulcolax) 10 mg ME Q2-3DAYS PRN PRN Reason: Constipation Dextrose (Dextrose 50%) 0 ml IV UD PRN PRN Reason: Hypoglycemia Diagnostic Test (Pha) (Accu-Chek) 1 each FS ACHS [facility] Last Admin: 05/15/16 07:52 Dose: 1 each Docusate Sodium (Colace) 100 mg PO BID [facility] Last Admin: 05/14/16 20:59 Dose: Not Given Fentanyl (Duragesic) 50 mcg TOPICAL Q72H [facility] Fluoxetine HCl (Prozac) 40 mg PO DAILY [facility] Last Admin: 05/14/16 10:14 Dose: 40 mg Furosemide (Lasix) 20 mg IV Q8 [facility] Last Admin: 05/15/16 05:30 Dose: 20 mg Gabapentin (Neurontin) 100 mg PO TID [facility] Last Admin: 05/14/16 20:30 Dose: 100 mg Gemfibrozil (Lopid) 600 mg PO BIDAC [facility] Last Admin: 05/15/16 08:07 Dose: 600 mg Heparin Sodium (Porcine) (Heparin) 5,000 unit SQ Q12 [facility] Last Admin: 05/14/16 20:30 Dose: 5,000 unit Hydromorphone HCl (Dilaudid) 0 mg IV Q2HP PRN PRN Reason: Pain Last Admin: 05/14/16 01:41 Dose: 0.5 mg Acetaminophen (Ofirmev) 1,000 mg in 100 mls @ 200 mls/hr IV Q6HP PRN PRN Reason: PAIN/FEVER > 101 Piperacillin Sod/Tazobactam (Sod 3.375 gm/ Dextrose) 50 mls @ 100 mls/hr IV Q6 [facility] Last Admin: 05/15/16 05:38 Dose: 100 mls/hr Insulin Human Lispro (Humalog) 0 unit SQ ACHS [facility] PRN Reason: Protocol Last Admin: 05/15/16 08:03 Dose: 8 unit Levothyroxine Sodium (Synthroid) 150 mcg PO ACB [facility] Last Admin: 05/15/16 08:06 Dose: 150 mcg Lorazepam (Ativan) 1 mg PO TIDP PRN PRN Reason: Anxiety Last Admin: 05/14/16 01:41 Dose: 1 mg Magnesium Hydroxide (Milk Of Magnesia) 30 ml PO DAILYP PRN PRN Reason: Constipation Methocarbamol (Robaxin) 750 mg PO Q6HP PRN PRN Reason: Muscle Spasm Ondansetron HCl (Zofran Odt) 4 mg SL Q4HP PRN PRN Reason: Nausea And Vomiting Last Admin: 05/14/16 09:23 Dose: 4 mg Oxycodone HCl (Roxicodone) 0 mg PO Q4HP PRN PRN Reason: Pain Last Admin: 05/15/16 08:43 Dose: 10 mg Pantoprazole Sodium (Protonix) 40 mg IV BIDAC [facility] Last Admin: 05/15/16 08:06 Dose: 40 mg Potassium Chloride (Potassium Chloride) 20 meq PT BIDCC [facility] Last Admin: 05/14/16 18:04 Dose: 20 meq Potassium/Phosphorus/Sodium (Neutra Phos) 2 packet PO BID [facility] Last Admin: 05/14/16 20:38 Dose: 2 packet Sitagliptin Phosphate (Januvia) 100 mg PO DAILY [facility] Last Admin: 05/14/16 10:14 Dose: 100 mg Sodium Biphosphate/Sodium Phosphate (Fleets Adult) 1 dose ME Q3-4DAYS PRN PRN Reason: Constipation Sodium Chloride (Saline Flush) 10 ml IV Q8 [facility] Last Admin: 05/15/16 05:35 Dose: 10 ml Throat Lozenges (Cepacol) 1 lozenge PO PRN PRN PRN Reason: Sore Throat Tizanidine HCl (Zanaflex) 4 mg PO Q6H [facility] Last Admin: 05/15/16 02:16 Dose: 4 mg Tramadol HCl (Ultram) 100 mg PO QIDP PRN PRN Reason: Pain Last Admin: 05/15/16 06:08 Dose: 100 mg Zolpidem Tartrate (Ambien) 5 mg PO HSP PRN PRN Reason: Insomnia Last Admin: 05/14/16 20:30 Dose: 5 mg Medical - PN: A/P - Time Spent With Patient Total time spent is greater than 50% in coordination of care (as documented) at patient's floor/unit and/or counseling patient: 25 - 35 minutes (1) Aspiration pneumonia Status: Acute Assessment and plan: * Paraplegia secondary to cord compression status post-spinal surgical decompression performed by Dr. Gomes. off IV steroids issues managed by hospitalist service * Hypoxic respiratory failure- patient is now off NIPPV. on 2.5 L oxygen. Continue aggressive diuresis and 2 hourly incentive spirometer use. * Multifocal pneumonia likely aspiration-continue aggressive diuresis/ aspiration precautions. Diet per ST recommendations. DC antibiotics * Sepsis- clinically resolved * abnormal electrolytes on aggressive replacement as indicated. * Mild SABRINA- creatinine now at baseline * Iatrogenic pancreatitis- likely secondary to surgical trauma/anesthesia. clinically resolved. * DM type II -stable. Off IV steroids * Hypertension-systolics Now over 140. Start atenolol 50 twice a day. continue holding FARNCESCA inhibitor/amlodipine. * Anasarca-clinically resolved with diuresis * DVT prophylaxis on SCD- continue subcutaneous heparin * Hypothyroidism on thyroxine Plan * aggressive pulmonary toilet/incentive spirometer * continue diuresis * dC antibiotics * Start atenolol/Plavix * DC IV steroids * continue electrolyte replacement * anticipate SNF transfer * discontinued Foleys catheter in 24 hours * Continue telemetry monitoring Current Visit: Yes
[2016-05-15] MEDS ORDERED: ATENOLOL 50 MG TABLET PO ONE (09:57)
[2016-05-15] MEDS ORDERED: tiZANidine 4 MG TABLET PO PRN (10:00)
[2016-05-15] MEDS: LORazepam 1 MG TABLET PO PRN (10:25)
[2016-05-15] MEDS ORDERED: IRON SUCROSE COMPLEX 400 MG in 0.9 % SODIUM CHLORIDE 250 ML IV SCH (10:30)
[2016-05-15] MEDS: oxyCODONE/APAP 10/325MG TABLET PO SCH ×3 (11:36→21:18)
[2016-05-15] MEDS: DOCUSATE SODIUM 100 MG CAPSULE PO SCH ×2 (12:23→21:18)
[2016-05-15] MEDS: 0.9 % SODIUM CHLORIDE 250 ML IV SCH ×2 (18:13→18:21)
[2016-05-15] MEDS ORDERED: FUROSEMIDE 40 MG/4 ML VIAL IV ONE (20:05)
--- NOTE | 2016-05-15 20:55 | XRay Report ---
CLINICAL INFORMATION: Hypoxia COMPARISON: 05/14/2016 1005 hours FINDINGS: Diffuse alveolar infiltrate with marked consolidation in both upper and left mid lungs has worsened considerably since exam earlier in the day. Findings are compatible with the clinical diagnosis of ARDS. The heart is mildly enlarged, but unchanged. Mediastinum is unremarkable. Pulmonary vessels are obscured by infiltrate. No definite effusion IMPRESSION: Diffuse alveolar infiltrates with marked consolidation in both upper and left mid lungs. It has worsened considerably since exam earlier in the day Interpreted and Authenticated by: Juan Brennan 05/15/16
[2016-05-15] MEDS: ATENOLOL 50 MG TABLET PO SCH (21:19)
[2016-05-15] MEDS: traZODone HCL 50 MG TABLET PO SCH (21:19)
[2016-05-16] MEDS: traMADol 50 MG TABLET PO PRN (00:28)
[2016-05-16] MEDS: IPRATROPIUM/ALBUTEROL 3 ML AMPUL.NEB NEB SCH ×4 (00:29→19:15)
[2016-05-16] MEDS: oxyCODONE/APAP 10/325MG TABLET PO SCH ×5 (01:41→20:30)
[2016-05-16] MEDS: LORazepam 1 MG TABLET PO PRN (03:12)
[2016-05-16] MEDS: FUROSEMIDE 20 MG/2 ML VIAL IV SCH ×3 (05:35→23:49)
[2016-05-16] MEDS: 0.9 % SODIUM CHLORIDE 10 ML SYRINGE IV SCH ×3 (05:35→23:49)
[2016-05-16 05:50] LABS: Mean Cell Volume 82.4 fL (80.0-100.0); Mean Corpuscular HGB Conc 32.1 g/dL (31.0-36.0); Mean Corpuscular Hemoglobin 26.5 pg (26.0-34.0); Platelet Count 358 K/mcL (140-440); RBC 3.78 M/mcL (4.00-5.20)
[2016-05-16 05:52] LABS: ALT/SGPT 18 U/l (0-40); Albumin 2.9 gm/dL (3.2-5.2); Alkaline Phosphatase 125 U/L (39-117); Bilirubin,Direct 0.2 mg/dL (0.0-0.3); Blood Urea Nitrogen 9 mg/dl (8-23); Gamma Glutamyl Transpeptidase 78 U/L (5-36); Magnesium 1.6 mg/dL (1.6-2.5); Phosphorous 2.9 mg/dL (2.7-4.5); Uric Acid 3.5 mg/dL (2.5-8.0)
[2016-05-16 06:55] LABS: Anisocytosis 1+ (NONE SEEN); Band Neutrophils % 6 % (0-10); Eosinophils % (Manual) 1 % (0-7); Lymphocytes % 2 % (15-49); Monocytes % (Manual) 1 % (1-9); Platelet Estimate NORMAL (NORMAL); RBC Morphology ABNORM (NORMAL); Segmented Neutrophils % 90 % (38-78)
[2016-05-16] MEDS: LEVOTHYROXINE 150 MCG TABLET PO SCH (06:58)
[2016-05-16] MEDS: PANTOPRAZOLE 40 MG PACKET PO SCH (06:58)
[2016-05-16] MEDS: GEMFIBROZIL 600 MG TABLET PO SCH ×2 (06:59→17:14)
[2016-05-16] MEDS: ONDANSETRON ODT 4 MG TABLET SL PRN (07:08)
[2016-05-16] MEDS ORDERED: fentaNYL 50 MCG PATCH TOPICAL SCH (09:00)
[2016-05-16] MEDS: POTASSIUM CHLORIDE 20 MEQ/15 ML ML PT SCH ×2 (09:23→17:12)
[2016-05-16] MEDS: sitaGLIPtin 100 MG TABLET PO SCH (09:23)
[2016-05-16] MEDS: GABAPENTIN 100 MG CAPSULE PO SCH ×3 (09:23→20:29)
[2016-05-16] MEDS: CLOPIDOGREL 75 MG TABLET PO SCH (09:23)
[2016-05-16] MEDS: NEUTRA PHOS 1 PACKET PO SCH ×2 (09:23→20:32)
[2016-05-16] MEDS: ATENOLOL 50 MG TABLET PO SCH ×2 (09:23→20:30)
[2016-05-16] MEDS: ALPRAZolam 0.25 MG TABLET PO SCH ×2 (09:23→20:29)
[2016-05-16] MEDS: DOCUSATE SODIUM 100 MG CAPSULE PO SCH ×2 (09:24→20:32)
[2016-05-16] MEDS: INSULIN LISPRO 1 UNIT/0.01 ML UNIT SQ SCH ×4 (09:24→20:42)
[2016-05-16] MEDS: FLUoxetine HCL 20 MG CAPSULE PO SCH (09:24)
[2016-05-16] MEDS: HEPARIN 5,000 UNIT/ML VIAL SQ SCH ×2 (09:25→20:29)
--- NOTE | 2016-05-16 09:41 | XRay Report ---
CLINICAL INFORMATION: Follow infiltrates. Hypoxia COMPARISON: 05/15/2016. FINDINGS: Mild cardiomegaly is unchanged. Mediastinum is grossly normal. Large consolidated infiltrates in the upper and mid lungs have modestly improved aeration compared to yesterday's study. Small bilateral pleural effusions noted. IMPRESSION: Large consolidated infiltrates in the upper and midlungs show modest improvement aeration compared yesterday's study. Findings are compatible with the clinical diagnosis of ARDS Interpreted and Authenticated by: Juan Brennan 05/16/16
--- NOTE | 2016-05-16 10:07 | Internal Med Progress Note ---
Medical - PN: Subj Patient information: Note initiated : 05/16/16 at 9:53 am Service Date, if different from initiated Date: [] Patient: Paula Mcfarlane 70 y/o F admitted on 05/06/16 for Lumbar Decompression. Chief Complaint: [] Interval history: 05/06-Ms. Mcfarlane is a 70 year old female admitted to Surgery (neurosurgery for spine decompression and fusion). The patient history obtained from chart review. On my eval the patient was in discomfort from post op pain and did not give any medical history. The patient seems has been suffering from lower extremity weakness, s/p fall and vertebral fracture in T12 region. This was fixed by a vertebroplasty a couple of days ago. The patient after surgery had significant back pain again and was seen in the pain clinic, the patient underwent a CT which revewaled significant narrowing of the upper aspect of the t12 vertebae. The patient also had new neurological symptoms, weakness in yimi lower extremities and was therefore taken to the OR today. S/p surgery. Medicine was consulted for management of chr medical conditions 05/12- Postoperatively patient developed aspiration pneumonia and was subsequently transferred to ICU. Patient was started on broad antibiotic coverage. patient has been gradually improving on antibiotics for aspiration pneumonia while she was aggressively resuscitated for sepsis with crystalloids. in the process she developed extensive lymphedema and was started on diuresis for anasarca. On BiPAP last 24 hours. Currently tolerating off BiPAP on 4-1/2 L oxygen. at bedside. Patient appears less anxious. Good urine output. No overnight fever chills nausea vomiting or concerns per staff 05/13-patient doing well. No overnight events except for brief episodes of anxiety. IV steroids being tapered as per orthopedics. Await transfer to [facility] acute care unit in the next 24-48 hours for continued rehabilitation. Persistent hypoxia but clinically improving since previous day. Overnight on BiPAP. transfer to telemetry. patient responded diuretics over 5000 cc net negative over the last 36 hours. continue physical therapy/pulmonary toilet and aspiration precautions. 05/14-patient poorly motivated to participate in physical therapy. Overnight on BiPAP requiring 50% FiO2. Aggressive diuresis ongoing. worsening chest infiltrates in the upper lobe on interval imaging. continue aggressive diuresis to improve lung compliance. Continue physical therapy. Wean BiPAP as tolerated. Continue antibiotic coverage and aspiration precautions 05/15- patient clinically improvingwith aggressive diuresis. Down to 3 L oxygen. Still feels fatigued and lethargic and poorly motivated to participate in physical therapy. steroids discontinued. anticipate SNF transfer Tuesday. excessive fatigue nephrology likely secondary to sedatives/opioids. DC zolpidem/ lorazepam/methocarbamol/ydromorphone/switch to oral PPI. DC antibiotics. IV iron sucrose for anemia. Restart home medications including Plavix home dose opioids -discontinue all IV inpatient opioids. initiated aggressive physical therapy 05/16- worsening respiratory distress with hypoxia. ARDS on chest imaging. Continue high flow nasal oxygen/aggressive diuresis to improve lung compliance. Cconsider OptiFlow/Vapotherm oxygen delivery. check echo to rule out cardiogenic pulmonary edema. ARDS Likely precipitated by surgery includes stress and pancreatitis along with recent aspiration pneumonia. patient remains critically ill. Continue ICU care. interval chest imaging improved since previous day. Patient was able to get out of bed and bear weight with physical therapy - Constitutional Vitals: Vital Signs Temp Pulse Resp BP Pulse Ox 98.0 F 102 H 20 161/91 95 05/16/16 08:00 05/16/16 08:00 05/16/16 08:00 05/16/16 08:00 05/16/16 08:00 Period Temp Pulse Resp BP Sys/Roldan Pulse Ox Last 24 Hr 97.5 F-100.2 F 82-121 18-31 144-175/77-93 91-98 Intake and Output 05/15/16 05/16/16 05/16/16 21:59 05:59 13:59 Intake Total 550 / 550 480 / 480 Output Total 1050 / 1050 1800 / 1800 Balance -500 / -500 -1320 / -1320 Weight 150 lb 6.4 oz Intake & Output: Intake & Output 05/15/16 05/16/16 05/16/16 21:59 05:59 13:59 Intake Total 550 / 550 480 / 480 Output Total 1050 / 1050 1800 / 1800 Balance -500 / -500 -1320 / -1320 Weight 150 lb 6.4 oz Intake: IV 270 / 270 Sodium Chloride 0.9% 250 270 / 270 ml @ 100 mls/hr IV ONCE DIDIER with Venofer 400 mg Rx#:[id number] Oral 280 / 280 480 / 480 Output: Urine Catheter Amount 1050 / 1050 1800 / 1800 Other: Meal Lunch Percent of Meal Consumed 25% Feeding Ability Assist with Tray Set Up # Bowel Movements 1 General appearance: cooperative, no acute distress Exam: nxious and weak Persistent bilateral lower extremity weakness On 5 L oxygen minimally laboredbreathing Abdomen soft Lymphedema nearly resolved Medical - PN: Obj Da - Labs CBC & Chem 7: 05/16/16 04:10 05/16/16 04:10 Labs: Abnormal Lab Results 05/16/16 05/16/16 05/15/16 04:10 04:10 04:35 WBC 12.5 H RBC 3.78 L Hgb 10.0 L Hct 31.2 L RDW 15.0 H Gran % Lymph % (Auto) Lymph # Seg Neutrophils % 90 H Lymphocytes % 2 L RBC Morphology Abnorm A Polychromasia Few A Anisocytosis 1+ A Potassium Chloride 94 L Glucose 225 H 231 H Uric Acid 2.3 L Calcium 8.4 L 7.9 L Phosphorus GGT 78 H 56 H Alkaline Phosphatase 125 H Lactate Dehydrogenase 367 H 278 H Total Protein 5.0 L Albumin 2.9 L 2.6 L Albumin/Globulin Ratio Triglycerides 188 H 163 H 05/15/16 05/14/16 05/14/16 04:35 09:52 09:52 WBC RBC 2.99 L 3.18 L Hgb 7.9 L 8.6 L Hct 24.7 L 25.9 L RDW 15.0 H 14.6 H Gran % 80.0 H Lymph % (Auto) 12.2 L Lymph # 0.8 L Seg Neutrophils % Lymphocytes % RBC Morphology Abnorm A Polychromasia 1+ A Anisocytosis 1+ A Potassium 3.0 L Chloride Glucose 213 H Uric Acid 2.3 L Calcium 8.3 L Phosphorus 1.9 L GGT 52 H Alkaline Phosphatase Lactate Dehydrogenase 279 H Total Protein 5.6 L Albumin 2.6 L Albumin/Globulin Ratio 0.9 L Triglycerides 193 H Meds: Medications Acetaminophen (Tylenol) 650 mg PO Q6HP PRN PRN Reason: PAIN/FEVER > 101 Albuterol/Ipratropium (Duoneb) 3 ml NEB Q6HRT [facility] Last Admin: 05/16/16 06:41 Dose: 3 ml Alprazolam (Xanax) 0.25 mg PO BID [facility] Last Admin: 05/16/16 09:23 Dose: 0.25 mg Atenolol (Tenormin) 50 mg PO BID [facility] Last Admin: 05/16/16 09:23 Dose: 50 mg Bisacodyl (Dulcolax) 10 mg GA Q2-3DAYS PRN PRN Reason: Constipation Clopidogrel Bisulfate (Plavix) 75 mg PO DAILY [facility] Last Admin: 05/16/16 09:23 Dose: 75 mg Diagnostic Test (Pha) (Accu-Chek) 1 each FS ACHS [facility] Last Admin: 05/16/16 09:25 Dose: 1 each Docusate Sodium (Colace) 100 mg PO BID [facility] Last Admin: 05/16/16 09:24 Dose: Not Given Fentanyl (Duragesic) 50 mcg TOPICAL Q72H [facility] Last Admin: 05/16/16 09:24 Dose: 50 mcg Fluoxetine HCl (Prozac) 40 mg PO DAILY [facility] Last Admin: 05/16/16 09:24 Dose: 40 mg Furosemide (Lasix) 20 mg IV Q8 [facility] Last Admin: 05/16/16 05:35 Dose: 20 mg Gabapentin (Neurontin) 100 mg PO TID [facility] Last Admin: 05/16/16 09:23 Dose: 100 mg Gemfibrozil (Lopid) 600 mg PO BIDAC [facility] Last Admin: 05/16/16 06:59 Dose: 600 mg Heparin Sodium (Porcine) (Heparin) 5,000 unit SQ Q12 [facility] Last Admin: 05/16/16 09:25 Dose: 5,000 unit Acetaminophen (Ofirmev) 1,000 mg in 100 mls @ 200 mls/hr IV Q6HP PRN PRN Reason: PAIN/FEVER > 101 Levofloxacin (Levaquin) 500 mg in 100 mls @ 100 mls/hr IV DAILY [facility] Piperacillin Sod/Tazobactam (Sod 3.375 gm/ Dextrose) 50 mls @ 100 mls/hr IV Q6 [facility] Insulin Human Lispro (Humalog) 0 unit SQ ACHS [facility] PRN Reason: Protocol Last Admin: 05/16/16 09:24 Dose: 6 unit Levothyroxine Sodium (Synthroid) 150 mcg PO ACB [facility] Last Admin: 05/16/16 06:58 Dose: 150 mcg Lorazepam (Ativan) 1 mg PO TIDP PRN PRN Reason: ANXIETY/SEDATION Last Admin: 05/16/16 03:12 Dose: 1 mg Magnesium Hydroxide (Milk Of Magnesia) 30 ml PO DAILYP PRN PRN Reason: Constipation Ondansetron HCl (Zofran Odt) 4 mg SL Q4HP PRN PRN Reason: Nausea And Vomiting Last Admin: 05/16/16 07:08 Dose: 4 mg Oxycodone/Acetaminophen (Percocet 10-325mg) 1 tab PO Q5H [facility] Last Admin: 05/16/16 06:58 Dose: 1 tab Pantoprazole Sodium (Protonix) 40 mg PO QAMAC [facility] Last Admin: 05/16/16 06:58 Dose: 40 mg Potassium Chloride (Potassium Chloride) 20 meq PT BIDCC [facility] Last Admin: 05/16/16 09:23 Dose: 20 meq Potassium/Phosphorus/Sodium (Neutra Phos) 2 packet PO BID [facility] Last Admin: 05/16/16 09:23 Dose: 2 packet Sitagliptin Phosphate (Januvia) 100 mg PO DAILY [facility] Last Admin: 05/16/16 09:23 Dose: 100 mg Sodium Biphosphate/Sodium Phosphate (Fleets Adult) 1 dose GA Q3-4DAYS PRN PRN Reason: Constipation Sodium Chloride (Saline Flush) 10 ml IV Q8 [facility] Last Admin: 05/16/16 05:35 Dose: 10 ml Tizanidine HCl (Zanaflex) 4 mg PO QIDP PRN PRN Reason: MUSCLE SPASM Tramadol HCl (Ultram) 100 mg PO QIDP PRN PRN Reason: Pain Last Admin: 05/16/16 00:28 Dose: 100 mg Trazodone HCl (Desyrel) 50 mg PO HS [facility] Last Admin: 05/15/16 21:19 Dose: 50 mg Medical - PN: A/P - Time Spent With Patient Total time spent is greater than 50% in coordination of care (as documented) at patient's floor/unit and/or counseling patient: Greater than 35 minutes (critical care time) (1) Aspiration pneumonia Status: Acute Assessment and plan: * Paraparesis secondary to cord compression status post-spinal surgical decompression performed by Dr. Gomes. Off IV steroids after initial high- dose. Ongoing aggressive physical therapy issues managed by hospitalist service * ARDS by criteria. On high flow oxygen/diuresis. Likely precipitated by surgical stress/acute pancreatitis/aspiration pneumonia mediated massive lung inflammation * Hypoxic respiratory failure- secondary to above. continue diuresis/high flow oxygen. Check echo to rule out cardiogenic etiology * Sepsis with worsening white count at 12.2 to 96% neutrophils. likely source along. Empiric coverage for gram-negative/anaerobes * Multifocal pneumonia likely aspiration-repeat progress during. Extend antibiotic coverage with Zosyn. continue Diet per ST recommendations. * Mild SABRINA- creatinine now at baseline * Iatrogenic pancreatitis- likely secondary to surgical trauma/anesthesia. clinically resolved. * DM type II -stable. * Hypertension-systolics Now over 140. continue atenolol 50 twice a day. hold FRANCESCA inhibitor/amlodipine. * Anasarca-clinically resolved with diuresis * DVT prophylaxis -heparin * Hypothyroidism on thyroxine Plan * aggressive pulmonary toilet/incentive spirometer * diuresis/high flow oxygen/aspiration precautions * antibiotic coverage for gram-negative/anaerobes * Pro-calcitonin * echocardiogram * ICU care * if deteriorating respiratory status consider transfer to tertiary Center For management of ARDS Current Visit: Yes
[2016-05-16] MEDS: PIPERACILLIN SODIUM/TAZOBACTAM 3.375 GM in DEXTROSE 5% IN WATER 50 ML IV SCH ×3 (10:54→18:00)
[2016-05-16] MEDS: LEVOFLOXACIN 500 MG/100 ML BAG IV SCH (12:00)
[2016-05-16] MEDS ORDERED: MAGNESIUM SULFATE 2 GM/50 ML BAG IV PRN (13:19)
[2016-05-16] MEDS: traZODone HCL 50 MG TABLET PO SCH (20:30)
[2016-05-17] MEDS: IPRATROPIUM/ALBUTEROL 3 ML AMPUL.NEB NEB SCH ×2 (01:57→07:19)
[2016-05-17] MEDS: PIPERACILLIN SODIUM/TAZOBACTAM 3.375 GM in DEXTROSE 5% IN WATER 50 ML IV SCH ×3 (01:58→11:56)
[2016-05-17] MEDS: traMADol 50 MG TABLET PO PRN ×2 (02:02→07:10)
[2016-05-17] MEDS: oxyCODONE/APAP 10/325MG TABLET PO SCH ×3 (02:34→12:46)
[2016-05-17 04:54] LABS: Creatine Kinase 75 IU/L (24-170); Creatine Kinase MB 2.6 ng/ml (0-2.9)
[2016-05-17 04:57] LABS: ALT/SGPT 17 U/l (0-40); Albumin 2.8 gm/dL (3.2-5.2); Albumin/Globulin Ratio 0.8 (1.0-2.3); Alkaline Phosphatase 117 U/L (39-117); Bilirubin,Direct < 0.2 mg/dL (0.0-0.3); Blood Urea Nitrogen 9 mg/dl (8-23); Gamma Glutamyl Transpeptidase 74 U/L (5-36); Magnesium 1.8 mg/dL (1.6-2.5); Phosphorous 2.3 mg/dL (2.7-4.5); Uric Acid 2.9 mg/dL (2.5-8.0)
[2016-05-17 04:59] LABS: Mean Cell Volume 82.3 fL (80.0-100.0); Mean Corpuscular HGB Conc 32.2 g/dL (31.0-36.0); Mean Corpuscular Hemoglobin 26.5 pg (26.0-34.0); Platelet Count 346 K/mcL (140-440); Red Cell Distribution Width 14.7 % (11.5-14.5)
[2016-05-17] MEDS ORDERED: POTASSIUM CHLORIDE 40 MEQ in DEXTROSE 5% IN WATER 500 ML IV ONE (05:24)
[2016-05-17] MEDS ORDERED: POTASSIUM CHLORIDE 40 MEQ in DEXTROSE 5% IN WATER 500 ML IV PRN (05:26)
[2016-05-17] MEDS ORDERED: POTASSIUM CHLORIDE 20 MEQ/10 ML VIAL IV ONE (05:31)
[2016-05-17] MEDS: FUROSEMIDE 20 MG/2 ML VIAL IV SCH (05:35)
[2016-05-17] MEDS: 0.9 % SODIUM CHLORIDE 10 ML SYRINGE IV SCH ×2 (05:43→12:43)
[2016-05-17 06:21] LABS: Anisocytosis 2+ (NONE SEEN); Band Neutrophils % 7 % (0-10); Basophils % (Manual) 1 % (0-2); Eosinophils % (Manual) 1 % (0-7); Lymphocytes % 5 % (15-49); Monocytes % (Manual) 2 % (1-9); Platelet Estimate NORMAL (NORMAL); RBC Morphology ABNORM (NORMAL); Segmented Neutrophils % 84 % (38-78)
[2016-05-17] MEDS: LORazepam 1 MG TABLET PO PRN ×2 (07:10→12:46)
[2016-05-17] MEDS: LEVOTHYROXINE 150 MCG TABLET PO SCH (07:36)
[2016-05-17] MEDS: PANTOPRAZOLE 40 MG PACKET PO SCH (07:36)
[2016-05-17] MEDS: GEMFIBROZIL 600 MG TABLET PO SCH (07:36)
[2016-05-17] MEDS: INSULIN LISPRO 1 UNIT/0.01 ML UNIT SQ SCH ×2 (07:46→11:44)
--- NOTE | 2016-05-17 08:11 | Echocardiogram Report ---
ECHOCARDIOGRAM: 2-D and M-mode echocardiography with cardiac Doppler and color flow imaging were performed with a [employer] Aplio MX. (See accompanying M-mode and Doppler reports for quantitation.) INDICATION: Congestive heart failure/? ejection fraction. No parasternal windows were available. Overall size of the RA, RV, LV, and aortic root appeared normal. LV wall thickness appeared mildly increased. The entire distal half of the LV appeared akinetic. The basal half appeared to contract well. Overall, LV systolic performance appeared moderately to severely depressed. Estimated ejection fraction is 30-35 percent. There was no evidence for mural thrombi. The LA appeared borderline enlarged. The aortic valve appeared trileaflet and normal. There was no evidence for aortic stenosis by Doppler interrogation. Aortic regurgitation, probably mild (1+), was demonstrated. The mitral and tricuspid valves appeared structurally unremarkable. Doppler interrogation of LV inflow disclosed __ signal related to rapid sinus rate. Mitral regurgitation, probably moderate (2+), was demonstrated. Color flow imaging disclosed the regurgitant jet to be directed centrally. Pulmonary venous interrogation disclosed equal \\"s\\" and \\"__\\" wave amplitude. The pulmonic valve was not well visualized. Pulmonary artery acceleration time was __ and could not be well interrogated. Tricuspid regurgitation, probably mild (1+), was noted. No intracardiac shunting was appreciated. There was no evidence for pericardial effusion. The IVC was dilated and did not vary with respiratory cycle indicating raised CVP. Calculated estimate of PA systolic pressure is moderately elevated at 55 mmHg. Borderline sinus tachycardia, rate 100, was present. CONCLUSION: Absent parasternal windows. Aortic regurgitation, probably mild (1+). Mild concentric LVH with moderate to severe segmental systolic dysfunction (extensive apical akinesis). Mitral regurgitation, probably moderate (2+), with borderline LA enlargement. Moderate and probably passive pulmonary hypertension/raised CVP. ECHOCARDIOGRAPHY M-MODE CALCULATIONS: HT: 64\\" WT: 150 BSA: 1.73 m sq NORMALS AORTA: AORTIC ROOT 2.8 2.0-3.7 cm LEFT ATRIUM 3.9 1.9-4.0 cm MITRAL VALVE: EXCURSION 1.9-2.7 cm EPSS <0.5 cm LT VENTRICLE: LVID (ED) 3.5-5.7 cm LVID (ES) SEPTAL THICKNESS 0.6-1.1 cm SEPTAL EXCURSION 0.3-0.8 cm LVPW THICKNESS 0.6-1.1 cm LVPW EXCURSION 0.9-1.4 cm MINOR AXIS FS 25%-40% RT VENTRICLE: RVID (ED) 0.9-2.6 cm(up to 3cm if LLD) QUALITATIVE DOPPLER FLOW STUDIES MITRAL VALVE MR probably moderate, 2+ AORTIC VALVE AR probably mild, 1+ TRICUSPID VALVE TR probably mild, 1+ PULMONIC VALVE QUANTITATIVE DOPPLER FLOW STUDIES SAMPLE SITES VELOCITIES PEAK PRESSURE VALVE AREA and/or VALVE WINDOW (PEAK,M/SEC) DROP (GRADIENT) PRESSURE HALF-TIME MV (Diastole) 1.4 MV (Systole) 5.4 AO (Diastole) 3.5 300 msec AO (Systole) 1.5 TV (Systole) 3.0 PV (Systole) PV (Diastole) SHERIG:geo Job ID: [id number] Doc ID: [id number] Raphael Levine MD
[2016-05-17] MEDS: CLOPIDOGREL 75 MG TABLET PO SCH (08:37)
[2016-05-17] MEDS: ALPRAZolam 0.25 MG TABLET PO SCH (08:37)
[2016-05-17] MEDS: sitaGLIPtin 100 MG TABLET PO SCH (08:37)
[2016-05-17] MEDS: GABAPENTIN 100 MG CAPSULE PO SCH (08:37)
[2016-05-17] MEDS: ATENOLOL 50 MG TABLET PO SCH (08:37)
[2016-05-17] MEDS: FLUoxetine HCL 20 MG CAPSULE PO SCH (08:38)
[2016-05-17] MEDS: HEPARIN 5,000 UNIT/ML VIAL SQ SCH (08:39)
[2016-05-17] MEDS: POTASSIUM CHLORIDE 20 MEQ/15 ML ML PT SCH (09:18)
[2016-05-17] MEDS: DOCUSATE SODIUM 100 MG CAPSULE PO SCH (09:19)
[2016-05-17] MEDS: NEUTRA PHOS 1 PACKET PO SCH (09:19)
[2016-05-17] MEDS: LEVOFLOXACIN 500 MG/100 ML BAG IV SCH (09:20)
--- NOTE | 2016-05-17 10:26 | Internal Med Progress Note ---
Medical - PN: Subj Patient information: Note initiated : 05/17/16 at 10:23 am Service Date, if different from initiated Date: [] Patient: Paula Mcfarlane 70 y/o F admitted on 05/06/16 for Lumbar Decompression. Chief Complaint: [] Interval history: 05/06-Ms. Mcfarlane is a 70 year old female admitted to Surgery (neurosurgery for spine decompression and fusion). The patient history obtained from chart review. On my eval the patient was in discomfort from post op pain and did not give any medical history. The patient seems has been suffering from lower extremity weakness, s/p fall and vertebral fracture in T12 region. This was fixed by a vertebroplasty a couple of days ago. The patient after surgery had significant back pain again and was seen in the pain clinic, the patient underwent a CT which revewaled significant narrowing of the upper aspect of the t12 vertebae. The patient also had new neurological symptoms, weakness in yimi lower extremities and was therefore taken to the OR today. S/p surgery. Medicine was consulted for management of chr medical conditions 05/12- Postoperatively patient developed aspiration pneumonia and was subsequently transferred to ICU. Patient was started on broad antibiotic coverage. patient has been gradually improving on antibiotics for aspiration pneumonia while she was aggressively resuscitated for sepsis with crystalloids. in the process she developed extensive lymphedema and was started on diuresis for anasarca. On BiPAP last 24 hours. Currently tolerating off BiPAP on 4-1/2 L oxygen. at bedside. Patient appears less anxious. Good urine output. No overnight fever chills nausea vomiting or concerns per staff 05/13-patient doing well. No overnight events except for brief episodes of anxiety. IV steroids being tapered as per orthopedics. Await transfer to [facility] acute care unit in the next 24-48 hours for continued rehabilitation. Persistent hypoxia but clinically improving since previous day. Overnight on BiPAP. transfer to telemetry. patient responded diuretics over 5000 cc net negative over the last 36 hours. continue physical therapy/pulmonary toilet and aspiration precautions. 05/14-patient poorly motivated to participate in physical therapy. Overnight on BiPAP requiring 50% FiO2. Aggressive diuresis ongoing. worsening chest infiltrates in the upper lobe on interval imaging. continue aggressive diuresis to improve lung compliance. Continue physical therapy. Wean BiPAP as tolerated. Continue antibiotic coverage and aspiration precautions 05/15- patient clinically improvingwith aggressive diuresis. Down to 3 L oxygen. Still feels fatigued and lethargic and poorly motivated to participate in physical therapy. steroids discontinued. anticipate SNF transfer Tuesday. excessive fatigue nephrology likely secondary to sedatives/opioids. DC zolpidem/ lorazepam/methocarbamol/ydromorphone/switch to oral PPI. DC antibiotics. IV iron sucrose for anemia. Restart home medications including Plavix home dose opioids -discontinue all IV inpatient opioids. initiated aggressive physical therapy 05/16- worsening respiratory distress with hypoxia. ARDS on chest imaging. Continue high flow nasal oxygen/aggressive diuresis to improve lung compliance. Cconsider OptiFlow/Vapotherm oxygen delivery. check echo to rule out cardiogenic pulmonary edema. ARDS Likely precipitated by surgery includes stress and pancreatitis along with recent aspiration pneumonia. patient remains critically ill. Continue ICU care. interval chest imaging improved since previous day. Patient was able to get out of bed and bear weight with physical therapy 05/17- worsening leukocytosis at 13,300 however clinical improvement now requiring 1 L oxygen. Diuresing well. On broad antibiotic coverage. Worsening chest infiltrates on pleased imaging. Repeat chest imaging in 24 hours. Continue aggressive physical therapy. Troponin elevated at 0.05 after T inversion noted on EKG. Patient complains of back pain at surgical site. no overnight fever chills. Not requiring noninvasive ventilation. Feels fatigued and lethargic. at bedside. telemetry events. echocardiogram reviewed. EF 30%. Significant systolic dysfunction. Discussed with patient the need of cardiology workup for evaluation of systolic ysfunction and underlying cardiomyopathy. - Constitutional Vitals: Vital Signs Temp Pulse Resp BP Pulse Ox 99.1 F 97 H 22 145/85 92 05/17/16 08:10 05/17/16 07:28 05/17/16 08:10 05/17/16 08:10 05/17/16 08:10 Period Temp Pulse Resp BP Sys/Roldan Pulse Ox Last 24 Hr 97.8 F-99.1 F 78-104 18-22 119-145/56-85 90-99 Intake and Output 05/16/16 05/17/16 05/17/16 21:59 05:59 13:59 Intake Total 510 / 510 170 / 170 990 / 990 Output Total 900 / 900 400 / 400 Balance -390 / -390 -230 / -230 990 / 990 Weight 146 lb Intake & Output: Intake & Output 05/16/16 05/17/16 05/17/16 21:59 05:59 13:59 Intake Total 510 / 510 170 / 170 990 / 990 Output Total 900 / 900 400 / 400 Balance -390 / -390 -230 / -230 990 / 990 Weight 146 lb Intake: IV 150 / 150 50 / 50 50 / 50 Dextrose 5% in Water 50 100 / 100 50 / 50 50 / 50 ml @ 100 mls/hr IV Q6 DIDIER with Zosyn 3.375 gm Rx#: [id number] Oral 360 / 360 120 / 120 120 / 120 GI Tube Flush 300 / 300 IV - Manual Only 520 / 520 Output: Urine Catheter Amount 900 / 900 400 / 400 Other: Meal Nourishment/Supplement Breakfast Percent of Meal Consumed 50% 25% Feeding Ability Assist with Tray Set Up # Bowel Movements 1 General appearance: no acute distress Exam: inimally labored breathing o anxiety alert oriented Nondistended abdomen Lymphedema resolved Medical - PN: Obj Da - Labs CBC & Chem 7: 05/17/16 03:55 05/17/16 03:55 Labs: Abnormal Lab Results 05/17/16 05/17/16 05/17/16 03:55 03:55 03:55 WBC 13.3 H RBC 3.70 L Hgb 9.8 L Hct 30.4 L RDW 14.7 H Gran % Lymph % (Auto) Lymph # Seg Neutrophils % 84 H Lymphocytes % 5 L Nucleated RBCs 1 H RBC Morphology Abnorm A Polychromasia 1+ A Anisocytosis 2+ A Potassium 3.2 L Chloride 94 L Glucose 282 H Uric Acid Calcium 8.5 L Phosphorus 2.3 L GGT 74 H Alkaline Phosphatase Lactate Dehydrogenase 373 H Troponin T 0.05 H* Total Protein Albumin 2.8 L Albumin/Globulin Ratio 0.8 L Triglycerides 215 H 05/16/16 05/16/16 05/15/16 04:10 04:10 04:35 WBC 12.5 H RBC 3.78 L Hgb 10.0 L Hct 31.2 L RDW 15.0 H Gran % Lymph % (Auto) Lymph # Seg Neutrophils % 90 H Lymphocytes % 2 L Nucleated RBCs RBC Morphology Abnorm A Polychromasia Few A Anisocytosis 1+ A Potassium Chloride 94 L Glucose 225 H 231 H Uric Acid 2.3 L Calcium 8.4 L 7.9 L Phosphorus GGT 78 H 56 H Alkaline Phosphatase 125 H Lactate Dehydrogenase 367 H 278 H Troponin T Total Protein 5.0 L Albumin 2.9 L 2.6 L Albumin/Globulin Ratio Triglycerides 188 H 163 H 05/15/16 05/14/16 05/14/16 04:35 09:52 09:52 WBC RBC 2.99 L 3.18 L Hgb 7.9 L 8.6 L Hct 24.7 L 25.9 L RDW 15.0 H 14.6 H Gran % 80.0 H Lymph % (Auto) 12.2 L Lymph # 0.8 L Seg Neutrophils % Lymphocytes % Nucleated RBCs RBC Morphology Abnorm A Polychromasia 1+ A Anisocytosis 1+ A Potassium 3.0 L Chloride Glucose 213 H Uric Acid 2.3 L Calcium 8.3 L Phosphorus 1.9 L GGT 52 H Alkaline Phosphatase Lactate Dehydrogenase 279 H Troponin T Total Protein 5.6 L Albumin 2.6 L Albumin/Globulin Ratio 0.9 L Triglycerides 193 H Meds: Medications Acetaminophen (Tylenol) 650 mg PO Q6HP PRN PRN Reason: PAIN/FEVER > 101 Albuterol/Ipratropium (Duoneb) 3 ml NEB Q6HRT [facility] Last Admin: 05/17/16 07:19 Dose: 3 ml Alprazolam (Xanax) 0.25 mg PO BID [facility] Last Admin: 05/17/16 08:37 Dose: 0.25 mg Atenolol (Tenormin) 50 mg PO BID [facility] Last Admin: 05/17/16 08:37 Dose: 50 mg Bisacodyl (Dulcolax) 10 mg RI Q2-3DAYS PRN PRN Reason: Constipation Clopidogrel Bisulfate (Plavix) 75 mg PO DAILY [facility] Last Admin: 05/17/16 08:37 Dose: 75 mg Diagnostic Test (Pha) (Accu-Chek) 1 each FS ACHS [facility] Last Admin: 05/17/16 07:30 Dose: 1 each Docusate Sodium (Colace) 100 mg PO BID [facility] Last Admin: 05/17/16 09:19 Dose: Not Given Fentanyl (Duragesic) 50 mcg TOPICAL Q72H [facility] Last Admin: 05/16/16 09:24 Dose: 50 mcg Fluoxetine HCl (Prozac) 40 mg PO DAILY [facility] Last Admin: 05/17/16 08:38 Dose: 40 mg Furosemide (Lasix) 20 mg IV Q8 [facility] Last Admin: 05/17/16 05:35 Dose: 20 mg Gabapentin (Neurontin) 100 mg PO TID [facility] Last Admin: 05/17/16 08:37 Dose: 100 mg Gemfibrozil (Lopid) 600 mg PO BIDAC [facility] Last Admin: 05/17/16 07:36 Dose: 600 mg Heparin Sodium (Porcine) (Heparin) 5,000 unit SQ Q12 [facility] Last Admin: 05/17/16 08:39 Dose: 5,000 unit Acetaminophen (Ofirmev) 1,000 mg in 100 mls @ 200 mls/hr IV Q6HP PRN PRN Reason: PAIN/FEVER > 101 Levofloxacin (Levaquin) 500 mg in 100 mls @ 100 mls/hr IV DAILY [facility] Last Admin: 05/17/16 09:20 Dose: 100 mls/hr Piperacillin Sod/Tazobactam (Sod 3.375 gm/ Dextrose) 50 mls @ 100 mls/hr IV Q6 [facility] Last Infusion: 05/17/16 06:05 Dose: Infused Magnesium Sulfate (Magnesium Sulfate) 2 gm in 50 mls @ 50 mls/hr IV PRN PRN PRN Reason: MAGNESIUM < OR = 1.7 Last Infusion: 05/16/16 15:40 Dose: Infused Potassium Chloride 40 meq/ (Dextrose) 520 mls @ 130 mls/hr IV PRN PRN PRN Reason: potassium less than 3.5 Insulin Human Lispro (Humalog) 0 unit SQ ACHS [facility] PRN Reason: Protocol Last Admin: 05/17/16 07:46 Dose: 8 unit Levothyroxine Sodium (Synthroid) 150 mcg PO ACB [facility] Last Admin: 05/17/16 07:36 Dose: 150 mcg Lorazepam (Ativan) 1 mg PO TIDP PRN PRN Reason: ANXIETY/SEDATION Last Admin: 05/17/16 07:10 Dose: 1 mg Magnesium Hydroxide (Milk Of Magnesia) 30 ml PO DAILYP PRN PRN Reason: Constipation Ondansetron HCl (Zofran Odt) 4 mg SL Q4HP PRN PRN Reason: Nausea And Vomiting Last Admin: 05/16/16 07:08 Dose: 4 mg Oxycodone/Acetaminophen (Percocet 10-325mg) 1 tab PO Q5H [facility] Last Admin: 05/17/16 08:44 Dose: 1 tab Pantoprazole Sodium (Protonix) 40 mg PO QAMAC [facility] Last Admin: 05/17/16 07:36 Dose: 40 mg Potassium Chloride (Potassium Chloride) 20 meq PT BIDCC [facility] Last Admin: 05/17/16 09:18 Dose: 20 meq Potassium/Phosphorus/Sodium (Neutra Phos) 2 packet PO BID [facility] Last Admin: 05/17/16 09:19 Dose: 2 packet Sitagliptin Phosphate (Januvia) 100 mg PO DAILY [facility] Last Admin: 05/17/16 08:37 Dose: 100 mg Sodium Biphosphate/Sodium Phosphate (Fleets Adult) 1 dose RI Q3-4DAYS PRN PRN Reason: Constipation Sodium Chloride (Saline Flush) 10 ml IV Q8 [facility] Last Admin: 05/17/16 05:43 Dose: 10 ml Tizanidine HCl (Zanaflex) 4 mg PO QIDP PRN PRN Reason: MUSCLE SPASM Tramadol HCl (Ultram) 100 mg PO QIDP PRN PRN Reason: Pain Last Admin: 05/17/16 07:10 Dose: 100 mg Trazodone HCl (Desyrel) 50 mg PO HS [facility] Last Admin: 05/16/16 20:30 Dose: 50 mg Medical - PN: A/P - Time Spent With Patient Total time spent is greater than 50% in coordination of care (as documented) at patient's floor/unit and/or counseling patient: 25 - 35 minutes (1) Aspiration pneumonia Status: Acute Assessment and plan: * 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 Gomes on 05/06. Off IV steroids after initial high-dose. Ongoing aggressive physical therapy issues managed by hospitalist service * ARDS by criteria. clinical improvement noted. responding well to nasal cannula oxygen/diuresis. Likely precipitated by surgical stress/acute pancreatitis/aspiration pneumonia mediated massive lung inflammation * Hypoxic respiratory insufficiency- clinical improvement noted. Improving ARDS. Off BiPAP. * NYHA class III systolic heart failure with EF 30%. start long-acting beta star/FRANCESCA inhibitor.continue diuresis. Scheduled outpatient cardiology follow -up * Sepsis with worsening white count at 12.2 to 96% neutrophils. likely source along. Empiric coverage for gram-negative/anaerobes * Mild elevation in troponins-serial trend. T-wave inversion on lateral leads. * hypokalemia on potassium replacement * Multifocal pneumonia likely aspiration-continue antibiotic coverage/ aspiration precaution. Repeat chest imaging in 24 hours * Mild SABRINA- creatinine now at baseline * Iatrogenic pancreatitis- likely secondary to surgical trauma/anesthesia. clinically resolved. * DM type II -stable. * Hypertension-hold amlodipine. switch atenolol to Coreg for systolic dysfunction, start benazepril * Anasarca-clinically resolved with diuresis * DVT prophylaxis -heparin * Hypothyroidism on thyroxine Plan * continue aggressive pulmonary toilet/incentive spirometer * serial cardiac enzymes * Continue diuresis * Potassium replacement * Switch to Coreg and start FRANCESCA inhibitor in light of systolic dysfunction * antibiotic coverage for gram-negative/anaerobes * repeat chest imaging in 24 hours * follow-up with cardiology as outpatient for Underlying systolic dysfunction/ EF 30% * transfer to telemetry Current Visit: Yes
--- NOTE | 2016-05-17 11:07 | Transfer Summary ---
Transfer Discharge Sum: Prov Patient information: Note initiated : 05/17/16 at 11:02 am Service Date, if different from initiated Date: [] Patient: Paula Mcfarlane 70 y/o F admitted on 05/06/16 for Lumbar Decompression. Chief Complaint: [] Date of admission: 05/06/16 16:30 Discharge Date: 05/17/16 Primary care physician: [f_Reg Prim Care Provider] Consults: 05/06/16 16:31 Consult to Physician [CONS] Routine Comment: Consulting Provider: Ashley Louie Reason For Exam: Physician to Consult Receiving physician/facility: [facility] Transfer Discharge Sum: Med - Medications Active and Home Medications: Home Medications Canagliflozin [Invokana] 200 mg PO DAILY 05/06/16 [History Confirmed 05/06/16] Clopidogrel Bisulfate [Plavix] 75 mg PO DAILY 05/06/16 [History Confirmed ] FLUoxetine HCL [Fluoxetine HCl] 40 mg PO DAILY 05/06/16 [History Confirmed 05/06] Furosemide [Lasix] 60 mg PO DAILY 05/06/16 [History Confirmed 05/06/16] Gemfibrozil [Lopid] 600 mg PO BIDAC 05/06/16 [History Confirmed 05/06/16] LORazepam [Ativan] 1 mg PO TIDP PRN 05/06/16 [History Confirmed 05/06/16] Levothyroxine [Synthroid] 150 mcg PO ACB 05/06/16 [History Confirmed 05/06/16] Pantoprazole [Protonix] 40 mg PO QAMAC 05/06/16 [History Confirmed 05/06/16] glipiZIDE [Glucotrol] 10 mg PO BID 05/06/16 [History Confirmed 05/06/16] metFORMIN HCL [Glucophage] 1,000 mg PO BIDCC 05/06/16 [History Confirmed ] oxyCODONE HCL/ACETAMINOPHEN [Percocet 10-325 mg Tablet] 1 tablet PO 5XD [History Confirmed 05/06/16] tiZANidine [Zanaflex] 4 mg PO QIDP 05/06/16 [History Confirmed 05/06/16] traMADol [Ultram] 100 mg PO QIDP 05/06/16 [History Confirmed 05/06/16] traZODone HCL [Trazodone HCl] 50 mg PO HS 05/06/16 [History Confirmed 05/06/16] Amoxicillin/Potassium Clav [Augmentin] 875 mg PO Q12H #10 tablet 05/17/16 [Rx] Carvedilol [Coreg] 6.25 mg PO BIDCC tablet 05/17/16 [Rx] Gabapentin [Neurontin] 100 mg PO TID capsule 05/17/16 [Rx] Lisinopril [Zestril] 20 mg PO DAILY tablet 05/17/16 [Rx] sitaGLIPtin [Januvia] 100 mg PO DAILY tablet 05/17/16 [Rx] Active Medications Acetaminophen (Tylenol) 650 mg PO Q6HP PRN PRN Reason: PAIN/FEVER > 101 Albuterol/Ipratropium (Duoneb) 3 ml NEB Q6HRT [facility] Last Admin: 05/17/16 07:19 Dose: 3 ml Alprazolam (Xanax) 0.25 mg PO BID [facility] Last Admin: 05/17/16 08:37 Dose: 0.25 mg Bisacodyl (Dulcolax) 10 mg GA Q2-3DAYS PRN PRN Reason: Constipation Carvedilol (Coreg) 6.25 mg PO BIDCC [facility] Clopidogrel Bisulfate (Plavix) 75 mg PO DAILY [facility] Last Admin: 05/17/16 08:37 Dose: 75 mg Diagnostic Test (Pha) (Accu-Chek) 1 each FS ACHS [facility] Last Admin: 05/17/16 07:30 Dose: 1 each Docusate Sodium (Colace) 100 mg PO BID [facility] Last Admin: 05/17/16 09:19 Dose: Not Given Fentanyl (Duragesic) 50 mcg TOPICAL Q72H [facility] Last Admin: 05/16/16 09:24 Dose: 50 mcg Fluoxetine HCl (Prozac) 40 mg PO DAILY [facility] Last Admin: 05/17/16 08:38 Dose: 40 mg Furosemide (Lasix) 20 mg IV Q8 [facility] Last Admin: 05/17/16 05:35 Dose: 20 mg Gabapentin (Neurontin) 100 mg PO TID [facility] Last Admin: 05/17/16 08:37 Dose: 100 mg Gemfibrozil (Lopid) 600 mg PO BIDAC [facility] Last Admin: 05/17/16 07:36 Dose: 600 mg Heparin Sodium (Porcine) (Heparin) 5,000 unit SQ Q12 [facility] Last Admin: 05/17/16 08:39 Dose: 5,000 unit Acetaminophen (Ofirmev) 1,000 mg in 100 mls @ 200 mls/hr IV Q6HP PRN PRN Reason: PAIN/FEVER > 101 Levofloxacin (Levaquin) 500 mg in 100 mls @ 100 mls/hr IV DAILY [facility] Last Admin: 05/17/16 09:20 Dose: 100 mls/hr Piperacillin Sod/Tazobactam (Sod 3.375 gm/ Dextrose) 50 mls @ 100 mls/hr IV Q6 [facility] Last Infusion: 05/17/16 06:05 Dose: Infused Magnesium Sulfate (Magnesium Sulfate) 2 gm in 50 mls @ 50 mls/hr IV PRN PRN PRN Reason: MAGNESIUM < OR = 1.7 Last Infusion: 05/16/16 15:40 Dose: Infused Potassium Chloride 40 meq/ (Dextrose) 520 mls @ 130 mls/hr IV PRN PRN PRN Reason: potassium less than 3.5 Insulin Human Lispro (Humalog) 0 unit SQ ACHS [facility] PRN Reason: Protocol Last Admin: 05/17/16 07:46 Dose: 8 unit Levothyroxine Sodium (Synthroid) 150 mcg PO ACB [facility] Last Admin: 05/17/16 07:36 Dose: 150 mcg Lisinopril (Zestril) 20 mg PO DAILY [facility] Lorazepam (Ativan) 1 mg PO TIDP PRN PRN Reason: ANXIETY/SEDATION Last Admin: 05/17/16 07:10 Dose: 1 mg Magnesium Hydroxide (Milk Of Magnesia) 30 ml PO DAILYP PRN PRN Reason: Constipation Ondansetron HCl (Zofran Odt) 4 mg SL Q4HP PRN PRN Reason: Nausea And Vomiting Last Admin: 05/16/16 07:08 Dose: 4 mg Oxycodone/Acetaminophen (Percocet 10-325mg) 1 tab PO Q5H [facility] Last Admin: 05/17/16 08:44 Dose: 1 tab Pantoprazole Sodium (Protonix) 40 mg PO QAMAC [facility] Last Admin: 05/17/16 07:36 Dose: 40 mg Potassium Chloride (Potassium Chloride) 20 meq PT BIDCC [facility] Last Admin: 05/17/16 09:18 Dose: 20 meq Potassium/Phosphorus/Sodium (Neutra Phos) 2 packet PO BID [facility] Last Admin: 05/17/16 09:19 Dose: 2 packet Sitagliptin Phosphate (Januvia) 100 mg PO DAILY [facility] Last Admin: 05/17/16 08:37 Dose: 100 mg Sodium Biphosphate/Sodium Phosphate (Fleets Adult) 1 dose GA Q3-4DAYS PRN PRN Reason: Constipation Sodium Chloride (Saline Flush) 10 ml IV Q8 [facility] Last Admin: 05/17/16 05:43 Dose: 10 ml Tizanidine HCl (Zanaflex) 4 mg PO QIDP PRN PRN Reason: MUSCLE SPASM Tramadol HCl (Ultram) 100 mg PO QIDP PRN PRN Reason: Pain Last Admin: 05/17/16 07:10 Dose: 100 mg Trazodone HCl (Desyrel) 50 mg PO HS [facility] Last Admin: 05/16/16 20:30 Dose: 50 mg Transfer Discharge Sum: Hosp Hospital course: TRANSFER DIAGNOSIS * 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 Gomes on 05/06. Off IV steroids after initial high-dose. Ongoing aggressive physical therapy Issues managed by hospitalist service * ARDS by criteria. clinical improvement noted. responding well to nasal cannula oxygen/diuresis. currently on 0.5 liter oxygen Likely precipitated by surgical stress/acute pancreatitis/aspiration pneumonia mediated massive lung inflammation. * Hypoxic respiratory insufficiency- clinical improvement noted. Improving ARDS. Off BiPAP. on 0.5 L oxygen * NYHA class III systolic heart failure with EF 30%. start long-acting beta star and DC atenolol/ continue FRANCESCA inhibitor. continue steady diuresis. Scheduled outpatient cardiology follow-up for evaluation of systolic dysfunction. * hypokalemia on potassium replacement * Multifocal pneumonia likely aspiration-white count 13.3. continue antibiotic coverage/aspiration precaution. recommend repeat chest imaging in 24 hours for interval change * Mild SABRINA- creatinine now at baseline * Iatrogenic pancreatitis- likely secondary to surgical trauma/anesthesia. clinically resolved. * DM type II -stable. * Hypertension-hold amlodipine. switch atenolol to Coreg for systolic dysfunction, start benazepril * Anasarca-clinically resolved with diuresis * DVT prophylaxis -heparin * Hypothyroidism on thyroxine BRIEF HOSPITAL COURSE 05/06-Ms. Mcfarlane is a 70 year old female admitted to Surgery (neurosurgery for spine decompression and fusion). The patient history obtained from chart review. On my eval the patient was in discomfort from post op pain and did not give any medical history. The patient seems has been suffering from lower extremity weakness, s/p fall and vertebral fracture in T12 region. This was fixed by a vertebroplasty a couple of days ago. The patient after surgery had significant back pain again and was seen in the pain clinic, the patient underwent a CT which revewaled significant narrowing of the upper aspect of the t12 vertebae. The patient also had new neurological symptoms, weakness in yimi lower extremities and was therefore taken to the OR today. S/p surgery. Medicine was consulted for management of chr medical conditions 05/12- Postoperatively patient developed aspiration pneumonia and was subsequently transferred to ICU. Patient was started on broad antibiotic coverage. patient has been gradually improving on antibiotics for aspiration pneumonia while she was aggressively resuscitated for sepsis with crystalloids. in the process she developed extensive lymphedema and was started on diuresis for anasarca. On BiPAP last 24 hours. Currently tolerating off BiPAP on 4-1/2 L oxygen. at bedside. Patient appears less anxious. Good urine output. No overnight fever chills nausea vomiting or concerns per staff 05/13-patient doing well. No overnight events except for brief episodes of anxiety. IV steroids being tapered as per orthopedics. Await transfer to [facility] acute care unit in the next 24-48 hours for continued rehabilitation. Persistent hypoxia but clinically improving since previous day. Overnight on BiPAP. transfer to telemetry. patient responded diuretics over 5000 cc net negative over the last 36 hours. continue physical therapy/pulmonary toilet and aspiration precautions. 05/14-patient poorly motivated to participate in physical therapy. Overnight on BiPAP requiring 50% FiO2. Aggressive diuresis ongoing. worsening chest infiltrates in the upper lobe on interval imaging. continue aggressive diuresis to improve lung compliance. Continue physical therapy. Wean BiPAP as tolerated. Continue antibiotic coverage and aspiration precautions 05/15- patient clinically improvingwith aggressive diuresis. Down to 3 L oxygen. Still feels fatigued and lethargic and poorly motivated to participate in physical therapy. steroids discontinued. anticipate SNF transfer Tuesday. excessive fatigue nephrology likely secondary to sedatives/opioids. DC zolpidem/ lorazepam/methocarbamol/ydromorphone/switch to oral PPI. DC antibiotics. IV iron sucrose for anemia. Restart home medications including Plavix home dose opioids -discontinue all IV inpatient opioids. initiated aggressive physical therapy 05/16- worsening respiratory distress with hypoxia. ARDS on chest imaging. Continue high flow nasal oxygen/aggressive diuresis to improve lung compliance. Cconsider OptiFlow/Vapotherm oxygen delivery. check echo to rule out cardiogenic pulmonary edema. ARDS Likely precipitated by surgery includes stress and pancreatitis along with recent aspiration pneumonia. patient remains critically ill. Continue ICU care. interval chest imaging improved since previous day. Patient was able to get out of bed and bear weight with physical therapy 05/17- Leukocytosis at 13,300 however clinical improvement now requiring 0.5-1 L oxygen. Diuresing well. On broad antibiotic coverage for aspiration coverage. recommend repeat chest imaging in 24 hours to assess interval change. Continue aggressive physical therapy. anticipate [facility] transfer later today or tomorrow. Patient complains of mild back pain at surgical site. no overnight fever chills. patient off noninvasive ventilation. Feels fatigued and lethargic. at bedside. No overnight telemetry events. Echocardiogram reviewed EF 30%. Significant systolic dysfunction. Discussed with patient the need for cardiology workup as outpatient - evaluation of systolic dysfunction and underlying cardiomyopathy. transferring to [facility] for continued postoperative rehabilitation - Time Spent with Patient Total time spent providing and/or coordinating transfer services: Greater than 30 minutes Transfer Discharge Sum: Exam - Constitutional Vitals: Vital Signs Temp Pulse Pulse Resp BP BP Pulse Ox 05/17/16 08:10 99.1 F 22 145/85 92 05/17/16 07:28 97 H 20 97 05/17/16 07:26 97 H 20 96 05/17/16 07:19 99 H 20 05/17/16 04:28 92 05/17/16 04:00 98.2 F 95 H 18 119/83 90 05/17/16 00:00 97.8 F 82 18 125/78 94 05/16/16 20:00 98.2 F 78 18 119/56 98 05/16/16 19:48 95 H 21 91 05/16/16 19:47 104 H 18 05/16/16 16:00 80 18 140/79 99 05/16/16 13:32 104 H 20 05/16/16 12:00 98.1 F 98 H 18 138/83 97 Intake and Output 05/16/16 05/17/16 05/17/16 21:59 05:59 13:59 Intake Total 510 / 510 170 / 170 1230 / 1230 Output Total 900 / 900 400 / 400 Balance -390 / -390 -230 / -230 1230 / 1230 Intake: IV 150 / 150 50 / 50 50 / 50 Dextrose 5% in Water 50 100 / 100 50 / 50 50 / 50 ml @ 100 mls/hr IV Q6 [facility] with Zosyn 3.375 gm Rx#: [id number] Oral 360 / 360 120 / 120 360 / 360 GI Tube Flush 300 / 300 IV - Manual Only 520 / 520 Output: Urine Catheter Amount 900 / 900 400 / 400 Other: Meal Nourishment/Supplement Breakfast Percent of Meal Consumed 50% 10% Feeding Ability Assist with Tray Set Up # Bowel Movements 1 Weight 146 lb General appearance: no acute distress Additional comments: lert oriented nonlabored breathing foleys draining clear urine No telemetry events Minimal anxiety Transfer Discharge Sum: Data Procedures and tests throughout hospitalization: Pending Orders 05/06/16 12:26 Incentive Spirometry Assess/Tx Q1HWA 05/06/16 15:43 Communication order ONCE Communication order PRN Oxygen Order (ED/SSSU) .Continuous 05/06/16 16:19 Resuscitation Status Routine 05/06/16 16:31 Consult to Physician [CONS] Routine 05/06/16 17:25 Admit as Inpatient Routine Bladder Scan .Routine CSM Checks Q4H IV Insertion/Management QSHIFT Intake and Output 0400,1600 Notify DAILY Occupational Therapy Eval & Tx ONCE Physical Therapy Eval & Tx DAILY Incentive Spirometry Assess/Tx Q1HWA Oxygen Order .Routine 05/08/16 08:58 Brace CONT 05/08/16 09:00 Brace [Ambulation Device] PRN 05/09/16 00:44 Occult blood, stool, guaic poc .X3 STOOLS 05/09/16 00:45 Blood Product Documentation NOW 05/09/16 02:14 Blood Product Documentation NOW 05/10/16 13:11 Nebulizer management .Routine 05/13/16 10:24 Acetaminophen [Ofirmev] 1,000 mg in 100 ml IV Q6HP Bisacodyl [Dulcolax] 10 mg GA Q2-3DAYS PRN Magnesium Hydroxide [Milk of Magnesia] 30 ml PO DAILYP PRN Na Phos,M-B/Na Phos,Di-Ba [Fleets Adult] 1 dose GA Q3-4DAYS PRN Ondansetron HCl [Zofran Odt] 4 mg SL Q4HP PRN Nebulizer management .Routine 05/13/16 10:25 Brace CONT 05/13/16 11:30 Accu-Chek 1 each FS ACHS Insulin Lispro [HumaLOG] See Protocol SQ ACHS 05/13/16 13:00 Ipratropium/Albuterol [Duoneb] 3 ml NEB Q6HRT 05/13/16 15:00 Gabapentin [Neurontin] 100 mg PO TID 05/13/16 16:25 Acetaminophen [Tylenol] 650 mg PO Q6HP PRN 05/13/16 17:00 Gemfibrozil [Lopid] 600 mg PO BIDAC 05/13/16 21:00 ALPRAZolam [Xanax] 0.25 mg PO BID Docusate Sodium [Colace] 100 mg PO BID Heparin 5,000 unit SQ Q12 Neutra Phos 2 packet PO BID 05/14/16 07:30 Levothyroxine [Synthroid] 150 mcg PO ACB 05/14/16 09:00 FLUoxetine HCL [PROzac] 40 mg PO DAILY sitaGLIPtin [Januvia] 100 mg PO DAILY 05/14/16 11:45 Potassium Chloride 20 meq PT BIDCC 05/14/16 14:00 Furosemide [Lasix] 20 mg IV Q8 05/15/16 10:00 tiZANidine [Zanaflex] 4 mg PO QIDP PRN traMADol [Ultram] 100 mg PO QIDP PRN 05/15/16 10:08 LORazepam [Ativan] 1 mg PO TIDP PRN 05/15/16 11:00 oxyCODONE/APAP [Percocet 10-325Mg] 1 tab PO Q5H 05/15/16 21:00 traZODone HCL [Desyrel] 50 mg PO HS 05/16/16 06:00 0.9 % Sodium Chloride [Saline Flush] 10 ml IV Q8 05/16/16 07:30 Pantoprazole [Protonix] 40 mg PO QAMAC 05/16/16 08:42 Speech Therapy Eval & Treat .Routine 05/16/16 08:44 Notify DAILY 05/16/16 09:00 Clopidogrel [Plavix] 75 mg PO DAILY Levofloxacin [Levaquin] 500 mg in 100 ml IV DAILY Piperacillin Sodium/Tazobactam [Zosyn] 3.375 gm Dextrose 5% in Water 50 ml IV Q6 fentaNYL [Duragesic] 50 mcg TOPICAL Q72H 05/16/16 13:19 Magnesium Sulfate 2 gm in 50 ml IV PRN 05/17/16 05:26 Potassium Chloride 40 meq Dextrose 5% in Water 500 ml IV PRN 05/17/16 17:30 Carvedilol [Coreg] 6.25 mg PO BIDCC 05/17/16 Lunch Consistent Carbohydrate Diet 05/18/16 04:00 Complete Blood Count Man Dif DAILY Inpatient Panel DAILY 05/18/16 09:00 Lisinopril [Zestril] 20 mg PO DAILY Transfer Discharge Sum: A/P - Plan Functional capacity at transfer: uses cane/walker (maximum assistance) Overall status at transfer: patient is progressing back to baseline Disposition: Xfer Inpatient Rehab Fac
[2016-05-17] MEDS ORDERED: CARVEDILOL 6.25 MG TABLET PO SCH (17:30)
[2016-05-18] MEDS ORDERED: LISINOPRIL 20 MG TABLET PO SCH (09:00)
== END 2016-05-17 13:26 | DRG 28 ==
LOC: SUR 12:10 → MEDSUR 12:11 → ICU 05-09 00:10
PROVIDERS: ADMIT Orthopaedic Surgery Orthopaedic Surgery of the Spine; ATTEND Internal Medicine